=== PATIENT | male | born 1975 | race Caucasian/White ===

== ENCOUNTER 2017-12-30 00:18 | Observation (INO) | payer MEDICAID, SELFPAY ==
[2017-12-30] VITALS (21 sets, daily range): BP systolic 102–166; BP diastolic 59–112; PULSE 61–116; RESP 16–20; TEMP 36.4–36.9; O2SAT 91–99; BMI 30.8; BMI 32.5
--- NOTE | 2017-12-30 | IR_ITS ---
CARDIAC CATHETERIZATION DATE OF CATHETERIZATION:12/30/2017 1:56 AM PROCEDURES: 1. Left heart catheterization 2. Selective coronary arteriography 3. Left ventriculography 4. INDICATION FOR TEST: 1. Acute myocardial infarction 2. Abnormal EKG 3. Informed consent was obtained prior to the procedure. COMPLICATIONS: None ESTIMATED BLOOD LOSS: Less than 10 ml. TECHNIQUE: One percent lidocaine was used to anesthetize the right groin. The right femoral artery was accessed via the Seldinger technique. A 4-Nigerian sheath was placed in the right femoral artery. The JL-4 and JR-4 catheter was also used to perform left heart catheterization and left ventriculography. At the end of the procedure the patient was transferred to the post-op holding area in stable condition for arterial sheath removal. ANGIOGRAPHIC RESULTS: 1. The left main artery was angiographically normal 2. The left anterior descending artery was angiographically normal 3. The circumflex artery was angiographically normal 4. The right coronary artery is angiographically normal 5. The VALLADARES ventriculogram reveals 60% 6. The left ventricular end-diastolic pressure 12 IMPRESSION: 1. Normal coronary arteries. 2. Normal left ventricular function 3. Normal left ventricular end-diastolic pressure 4. 5. PLAN: 1. We will look for noncardiac causes of chest pain. Coronary arteries normal. Normal left ventricular systolic function 2.
--- NOTE | 2017-12-30 00:34 | XR_ITS ---
XR chest portable HISTORY: ITS.REASON: chest pain ORDERING PHYSICIAN: Jameel Baez MD PATIENT AGE: 42 years COMPARISON: 03/21/2015 FINDINGS: The cardiomediastinal silhouette and pulmonary vascularity are within normal limits. The lungs are clear without infiltrates, suspicious nodules, or pleural effusions. No acute bony abnormalities. IMPRESSION: Negative chest, no acute finding
--- NOTE | 2017-12-30 00:41 | PC.NURSE ---
dr reveles spoke to dr quach, ekg sent. dr quach coming to do cath
--- NOTE | 2017-12-30 00:44 | PC.NURSE ---
Leonardo Rodriguez called decorating machine operator for cath team.
[2017-12-30 00:46] LABS: Basophils # 0.1 K/mm3 (0-0.2); Basophils % 0.7 % (0.1-2.0); Eosinophils # 0.1 K/mm3 (0.0-0.4); Eosinophils % 1.3 % (0.1-12.0); Hemoglobin 15.1 g/dL (14.1-18.0); Lymphocytes % 36.7 K/mm3 (10-50); Mean Corpuscular HGB Conc 34.3 g/dL (31.8-35.4); Mean Corpuscular Hemoglobin 31.9 pg (27.0-31.2); Mean Corpuscular Volume 92.9 fl (80-94); Monocytes # 0.3 K/mm3 (0.1-1.0); Neutrophils # 4.7 K/mm3 (1.8-7.8); Neutrophils % 57.3 % (37.0-80.0); Platelet Count 233 K/mm3 (142-424); Red Blood Count 4.73 M/mm3 (4.60-6.20); Red Cell Distribution Width 12.4 % (11.5-17.5); White Blood Count 8.1 K/mm3 (4.8-10.8)
--- NOTE | 2017-12-30 00:49 | PC.NURSE ---
Dr. Baez spoke with Dr. Joaquin at [phone] and [phone]
--- NOTE | 2017-12-30 00:51 | PC.NURSE ---
was informed to call cath team in ot 0049 , irma Borja,Zak Meza,and Graciela ROBERTS WERE NOTIFIED
--- NOTE | 2017-12-30 00:51 | HMH.EDCP ---
ED Disposition Clinical Impression: ST elevation myocardial infarction (STEMI) Qualifiers: Involved coronary artery: unspecified coronary artery Qualified Code(s): I21.3 - ST elevation (STEMI) myocardial infarction of unspecified site Disposition: Admitted As Inpatient Condition on Discharge: Serious - Critical Care Critical Care Time: Yes Attestation: On , the high probability of a clinically significant, sudden or life threatening deterioration of the following system(s) required my full and direct attention, intervention and personal management. The time I documented below is in addition to time spent performing reported procedures but includes the following listed in this critical care notation. Total Critical Care Time: 60 Vital system(s) involved:: Circulatory Failure My critical care processes included: Assessment & monitoring of V/S, Initial and Re-exams, Medication Orders and management Medical Decision Making - Medical Records Medical records reviewed: Yes: I reviewed the patient's medical records. Vital Signs: 12/30/17 00:20 Temperature 98.4 F Temperature Source Oral Pulse Rate [Apical] 116 H Respiratory Rate 20 Blood Pressure [Left Arm] 166/112 Blood Pressure Mean [Left Arm] 130 Blood Pressure Source [Left Arm] Automatic Cuff 02 Sat by Pulse Oximetry 99 Oxygen Delivery Method Room Air - Lab Data Lab results reviewed: Yes: I reviewed the patient's lab results. Orders (Tests/Meds): ED MEDICATIONS Discontinued Medications Generic Name Dose Route Start Last Admin Trade Name Freq PRN Reason Stop Dose Admin Aspirin 324 mg 12/30/17 00:40 12/30/17 00:44 Aspirin 81mg Chewable Tablet PO 12/30/17 00:41 324 mg ONCE ONE Administration ORDERS Category Date Time Status XR chest portable Stat Exams 12/30/17 00:34 Taken Cardiac Enzymes Stat Lab 12/30/17 00:25 Received Complete Blood Count Auto Diff Stat Lab 12/30/17 00:25 Received Comprehensive Metabolic Panel Stat Lab 12/30/17 00:25 Received ECG Request by /Harjeet Stat Y 12/30/17 00:34 Ordered - Radiology Data #1 Image(s): Chest Image Reviewed: Yes I reviewed the patient's radiology image Preliminary Findings: Abnormal (cm) - ECG Data Tracing #1 I reviewed this ECG and interpreted as documented below: Arrhythmias present: sinus tach Ischemic changes: ST elevation - Physician Consults Physician Consulted: tiffanie Reason -: Pt condition Additional Consult: maria isabel Reason -: Admission, Pt condition - Tye Inquiry Pt receiving controlled substance: No Chest Pain HPI - General Chief Complaint: Chest Pain Stated Complaint: Chest pain Time Seen by Provider: 12/30/17 00:25 Mode of Arrival: Ambulatory Source of Information: Patient, Relative, Medical Record Limitations: No Limitations Description of Symptoms (Recalled from ER Triage Doc. by RN): pt states around 2200 he began to have VIPUL shoulder pain with midline chest pain. Pt states he had some N/V. - History of Present Illness HPI narrative: acute onset of chest pain with nausea and scapular pain MD complaint: chest pain indicative of cardiac Onset (ago): hour(s) Duration: constant Activity at onset: light activity Pain location: substernal Severity: severe Quality: tightness Pain radiation: back Relieving factors: nothing Exacerbating factors: nothing Risk Factors for CAD: Family Hx of CAD Treatments prior to or on arrival for Cardiac Chest Pain: none - BRENNAN Score Non-Stemi Age of patient: Less than 65 yrs Number of risk factors for CAD: Presence of less than 3 Prior coronary artery stenosis(seen in coronary angiography): Less than 50% ST-Segment deviation on ECG (more than 1 min): Present Prior aspirin intake: No ASA in the last 7 days Severe anginal chest pain: No or one episode in last 24 hours Elevated cardiac markers(CK-MB or troponin): Present Non-Stemi Risk Score: 2 - Related Data Allergies Allergy/AdvReac Type Anitha
--- NOTE | 2017-12-30 00:55 | ED_ITS ---
ED Disposition Clinical Impression: ST elevation myocardial infarction (STEMI) Qualifiers: Involved coronary artery: unspecified coronary artery Qualified Code(s): I21.3 - ST elevation (STEMI) myocardial infarction of unspecified site Disposition: Admitted As Inpatient Condition on Discharge: Serious - Critical Care Critical Care Time: Yes Attestation: On , the high probability of a clinically significant, sudden or life threatening deterioration of the following system(s) required my full and direct attention, intervention and personal management. The time I documented below is in addition to time spent performing reported procedures but includes the following listed in this critical care notation. Total Critical Care Time: 60 Vital system(s) involved:: Circulatory Failure My critical care processes included: Assessment & monitoring of V/S, Initial and Re-exams, Medication Orders and management Medical Decision Making - Medical Records Medical records reviewed: Yes: I reviewed the patient's medical records. Vital Signs: 12/30/17 00:20 Temperature 98.4 F Temperature Source Oral Pulse Rate [Apical] 116 H Respiratory Rate 20 Blood Pressure [Left Arm] 166/112 Blood Pressure Mean [Left Arm] 130 Blood Pressure Source [Left Arm] Automatic Cuff 02 Sat by Pulse Oximetry 99 Oxygen Delivery Method Room Air - Lab Data Lab results reviewed: Yes: I reviewed the patient's lab results. Orders (Tests/Meds): ED MEDICATIONS Discontinued Medications Generic Name Dose Route Start Last Admin Trade Name Freq PRN Reason Stop Dose Admin Aspirin 324 mg 12/30/17 00:40 12/30/17 00:44 Aspirin 81mg Chewable Tablet PO 12/30/17 00:41 324 mg ONCE ONE Administration ORDERS Category Date Time Status XR chest portable Stat Exams 12/30/17 00:34 Taken Cardiac Enzymes Stat Lab 12/30/17 00:25 Received Complete Blood Count Auto Diff Stat Lab 12/30/17 00:25 Received Comprehensive Metabolic Panel Stat Lab 12/30/17 00:25 Received ECG Request by /Harjeet Stat Y 12/30/17 00:34 Ordered - Radiology Data #1 Image(s): Chest Image Reviewed: Yes I reviewed the patient's radiology image Preliminary Findings: Abnormal (cm) - ECG Data Tracing #1 I reviewed this ECG and interpreted as documented below: Arrhythmias present: sinus tach Ischemic changes: ST elevation - Physician Consults Physician Consulted: tiffanie Reason -: Pt condition Additional Consult: maria isabel Reason -: Admission, Pt condition - Tye Inquiry Pt receiving controlled substance: No Chest Pain HPI - General Chief Complaint: Chest Pain Stated Complaint: Chest pain Time Seen by Provider: 12/30/17 00:25 Mode of Arrival: Ambulatory Source of Information: Patient, Relative, Medical Record Limitations: No Limitations Description of Symptoms (Recalled from ER Triage Doc. by RN): pt states around 2200 he began to have VIPUL shoulder pain with midline chest pain. Pt states he had some N/V. - History of Present Illness HPI narrative: acute onset of chest pain with nausea and scapular pain MD complaint: chest pain indicative of cardiac Onset (ago): hour(s) Duration: constant Activity at onset: light activity Pain location: substernal Severity: severe Quality: tightness Pain rad
--- NOTE | 2017-12-30 01:19 | PC.NURSE ---
PT TO PHOTO CHECKER PER PAVAN.
--- NOTE | 2017-12-30 01:23 | PC.NURSE ---
dr reveles given ekg he advised stemi alert
[2017-12-30 01:24] LABS: Alanine Aminotransferase 42 U/L (12-78); Albumin Level 4.2 gm/dL (3.4-5.0); Albumin/Globulin Ratio 1.1 (1.1-1.8); Alkaline Phosphatase 97 U/L (46-116); Anion Gap 12.7 mEq/L (5-15); Aspartate Amino Transferase 28 U/L (15-37); Bilirubin,Total 0.6 mg/dL (0.2-1.0); Blood Urea Nitrogen 16 mg/dL (7-18); CKMB Relative Index 0.4 U/L (0-4.0); Calcium 8.9 mg/dL (8.5-10.1); Carbon Dioxide 26 mmol/L (21.0-32.0); Chloride 102 mmol/L (98-107); Creatine Kinase 148 U/L (39-308); Creatine Kinase MB 0.6 mg/ml (0.0-3.6); Creatinine Clearance Estimated 135 mL/min (0-300); Creatinine,Serum 0.98 mg/dL (0.70-1.30); Estimated Glomerular Filt Rate 84 ml/min (>60); GFR (African American) 101 ML/MIN (>60); Globulin 3.8 gm/dl (1.3-3.2); Glucose 107 mg/dL (74-106); Potassium 3.7 mmoL/L (3.5-5.1); Sodium 137 mmol/L (136-145); Troponin I < 0.02 ng/ml (0.00-0.06)
[2017-12-30 02:10] LABS: CATHL Activated Clotting Time 295 SEC (74-125)
[2017-12-30 04:43] LABS: Cholesterol 187 mg/dL (140-200); HDL Cholesterol 63 mg/dL (27-67); LDL Cholesterol 103 mg/dL (0-130); Triglycerides 104 mg/dL (30-200); VLDL Cholesterol 21 mg/dL (0-40)
[2017-12-30 05:56] LABS: Anion Gap 13.9 mEq/L (5-15); Blood Urea Nitrogen 15 mg/dL (7-18); Carbon Dioxide 24 mmol/L (21.0-32.0); Chloride 105 mmol/L (98-107); Creatinine Clearance Estimated 160 mL/min (0-300); Creatinine,Serum 0.85 mg/dL (0.70-1.30); Estimated Glomerular Filt Rate 99 ml/min (>60); GFR (African American) 120 ML/MIN (>60); Glucose 107 mg/dL (74-106); Potassium 3.9 mmoL/L (3.5-5.1); Sodium 139 mmol/L (136-145)
--- NOTE | 2017-12-30 06:35 | PC.NURSE ---
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 ONCE I STARTED HAVING THE PAIN, I WAS AFRAID IT WAS MY HEART. I AM KNOWN TO HAVE ANXIETY ATTACKS AND I DID FEEL PANICKY AT THAT TIME, THEN I BROKE OUT IN A COLD SWEAT AND THREW UP. I DIDN'T TELL THEM THIS DOWN STAIRS IN THE ER. NSR NOTED PER RETAIL BUSINESS DEVELOPMENT MANAGER. R GROIN SITE ASSESSED, CDI, WITH NO S/S OF INFECTION, NO HEMATOMA NOTED AT SITE. AROUND 0600 PT REQUESTED TO GET OOB TO USE THE RESTROOM, PT AMBULATED TO BATHROOM WELL WITH SBA AND HAD 750ML UO. NO COMPLAINTS STATED. VSS. WILL CONTINUE TO MONITOR.
--- NOTE | 2017-12-30 07:16 | PC.NURSE ---
REPORT GIVEN TO Isrrael SINHA W/C
--- NOTE | 2017-12-30 07:28 | HMH.HPDC ---
General - General Admission date: 12/30/17 Discharge date: 12/30/17 *Admission Date: 12/30/17 *History of present illness: 42-year-old male presented to the emergency department after working on a tractor in the evening rather violently when he developed pain across his back between the shoulder blades that radiated around to the chest. The longer his discomfort lasted the more anxious he became about the possibility of cardiac cause. Patient has undergone prior cardiac evaluation with a negative stress test. Patient presented to the emergency department. In the emergency department he underwent evaluation and there was high level of suspicion of myocardial infarction. The cardiac cath team was activated and patient was taken to the Disability Counselor [facility] History I have reviewed the patient's past medical history: Yes - *Social History Educational Level: Completed High School Smoking Status: Never smoker Alcohol Intake: never Occupational Status: employed Housing: house Household Members: spouse - Psychiatric History Expresses thoughts of harming self/others: None Suicide Plan Description: No Plan Review of Systems - Review of Systems Review of systems:: pertinent systems reviewed and negative unless documented below - *Neurologic Denies seizure-like activity Exam Vital signs and Labs for Last 24 Hours: Temp Pulse Resp BP Pulse Ox 98.0 F 86 16 102/59 91 L 12/30/17 04:05 12/30/17 04:05 12/30/17 04:05 12/30/17 04:05 12/30/17 04:05 Laboratory Results - last 24 hr 12/30/17 05:35: Sodium 139, Potassium 3.9, Chloride 105, Carbon Dioxide 24, Anion Gap 13.9, BUN 15, Creatinine 0.85, Estimated Creat Clear 160, Estimated GFR 99, Est GFR ( Amer) 120, Glucose 107 H Laboratory Results - last 24 hr 12/30/17 00:25: WBC 8.1, RBC 4.73, Hgb 15.1, Hct 44.0, MCV 92.9, MCH 31.9 H, MCHC 34.3, RDW 12.4, Plt Count 233, MPV 8.0, Neut % (Auto) 57.3, Lymph % (Auto) 36.7, [place] % (Auto) 4.0, Eos % (Auto) 1.3, Baso % (Auto) 0.7, Neut # (Auto) 4.7, Lymph # (Auto) 3.0, [place] # (Auto) 0.3, Eos # (Auto) 0.1, Baso # (Auto) 0.1 12/30/17 00:25: Sodium 137, Potassium 3.7, Chloride 102, Carbon Dioxide 26, Anion Gap 12.7, BUN 16, Creatinine 0.98, Estimated Creat Clear 135, Estimated GFR 84, Est GFR ( Amer) 101, Glucose 107 H, Calcium 8.9, Total Bilirubin 0.6, AST 28, ALT 42, Alkaline Phosphatase 97, Total Creatine Kinase 148, CK-MB (CK-2) 0.6, CK-MB (CK-2) Rel Index 0.4, Troponin I < 0.02, Total Protein 8.0, Albumin 4.2, Globulin 3.8 H, Albumin/Globulin Ratio 1.1 12/30/17 00:25: Triglycerides 104, Cholesterol 187, LDL Cholesterol 103, VLDL Cholesterol 21, HDL Cholesterol 63, Cholesterol/HDL Ratio 3.0 12/30/17 01:32: Activated Clotting Time 295 H* 12/30/17 05:35: Sodium 139, Potassium 3.9, Chloride 105, Carbon Dioxide 24, Anion Gap 13.9, BUN 15, Creatinine 0.85, Estimated Creat Clear 160, Estimated GFR 99, Est GFR ( Amer) 120, Glucose 107 H I & O for Last 24 hours: Intake & Output 12/27/17 12/28/17 12/29/17 12/30/17 11:59 11:59 11:59 11:59 Output Total 750 / 750 Balance -750 / -750 Weight 220 lb 5 oz Narrative: Patient is awake and alert comfortable. HEENT exam reveals reactive pupils, moist oropharynx, normal external ears. Neck is without carotid bruits or lymphadenopathy. Lungs are clear to auscultation. Heart has a regular rate and rhythm. Abdomen is soft and nontender. Musculoskeletal exam is significant for active range of motion in all extremities and mild tenderness to palpation of musculature in between the shoulder blades as well as reproducible pain with deep breathing. Hospital Course Hospital Course: Patient was taken to the Disability Counselor emergently and underwent cardiac catheterization by Dr. Holm. Catheterization was unremarkable. Patient did not have any obstructive coronary disease nor evidence of active infarction. Patient was kept in the hospital post procedurally for observation. O
--- NOTE | 2017-12-30 07:32 | P.HPDS_ITS ---
General - General Admission date: 12/30/17 Discharge date: 12/30/17 *Admission Date: 12/30/17 *History of present illness: 42-year-old male presented to the emergency department after working on a tractor in the evening rather violently when he developed pain across his back between the shoulder blades that radiated around to the chest. The longer his discomfort lasted the more anxious he became about the possibility of cardiac cause. Patient has undergone prior cardiac evaluation with a negative stress test. Patient presented to the emergency department. In the emergency department he underwent evaluation and there was high level of suspicion of myocardial infarction. The cardiac cath team was activated and patient was taken to the Security Nurse [facility] History I have reviewed the patient's past medical history: Yes - *Social History Educational Level: Completed High School Smoking Status: Never smoker Alcohol Intake: never Occupational Status: employed Housing: house Household Members: spouse - Psychiatric History Expresses thoughts of harming self/others: None Suicide Plan Description: No Plan Review of Systems - Review of Systems Review of systems:: pertinent systems reviewed and negative unless documented below - *Neurologic Denies seizure-like activity Exam Vital signs and Labs for Last 24 Hours: Temp Pulse Resp BP Pulse Ox 98.0 F 86 16 102/59 91 L 12/30/17 04:05 12/30/17 04:05 12/30/17 04:05 12/30/17 04:05 12/30/17 04:05 Laboratory Results - last 24 hr 12/30/17 05:35: Sodium 139, Potassium 3.9, Chloride 105, Carbon Dioxide 24, Anion Gap 13.9, BUN 15, Creatinine 0.85, Estimated Creat Clear 160, Estimated GFR 99, Est GFR ( Amer) 120, Glucose 107 H Laboratory Results - last 24 hr 12/30/17 00:25: WBC 8.1, RBC 4.73, Hgb 15.1, Hct 44.0, MCV 92.9, MCH 31.9 H, MCHC 34.3, RDW 12.4, Plt Count 233, MPV 8.0, Neut % (Auto) 57.3, Lymph % (Auto) 36.7, [place] % (Auto) 4.0, Eos % (Auto) 1.3, Baso % (Auto) 0.7, Neut # (Auto) 4.7 , Lymph # (Auto) 3.0, [place] # (Auto) 0.3, Eos # (Auto) 0.1, Baso # (Auto) 0.1 12/30/17 00:25: Sodium 137, Potassium 3.7, Chloride 102, Carbon Dioxide 26, Anion Gap 12.7, BUN 16, Creatinine 0.98, Estimated Creat Clear 135, Estimated GFR 84, Est GFR ( Amer) 101, Glucose 107 H, Calcium 8.9, Total Bilirubin 0.6, AST 28, ALT 42, Alkaline Phosphatase 97, Total Creatine Kinase 148, CK-MB ( CK-2) 0.6, CK-MB (CK-2) Rel Index 0.4, Troponin I < 0.02, Total Protein 8.0, Albumin 4.2, Globulin 3.8 H, Albumin/Globulin Ratio 1.1 12/30/17 00:25: Triglycerides 104, Cholesterol 187, LDL Cholesterol 103, VLDL Cholesterol 21, HDL Cholesterol 63, Cholesterol/HDL Ratio 3.0 12/30/17 01:32: Activated Clotting Time 295 H* 12/30/17 05:35: Sodium 139, Potassium 3.9, Chloride 105, Carbon Dioxide 24, Anion Gap 13.9, BUN 15, Creatinine 0.85, Estimated Creat Clear 160, Estimated GFR 99, Est GFR ( Amer) 120, Glucose 107 H I & O for Last 24 hours: Intake & Output 12/27/17 12/28/17 12/29/17 12/30/17 11:59 11:59 11:59 11:59 Output Total 750 / 750 Balance -750 / -750 Weight 220 lb 5 oz Narrative: Patient is awake and alert comfortable. HEENT exam reveals reactive pupils, moist oropharynx, normal external ears. Neck is without carotid bruits or lymphadenopathy. Lungs are clear to auscultation. Heart has a regular rate and rhythm. Abdomen is soft and nontender. Musculoskeletal exam is significant for active range of motion in all extremities and mild tenderness
== END 2017-12-30 08:40 | disposition home or self-care (01) ==
LOC: ER 01:06 → CATHLAB 01:32 → 2ND 02:32
PROVIDERS: Internal Medicine; Internal Medicine Cardiovascular Disease; Admitting Provider Family Medicine; Emergency Provider Emergency Medicine; Family Provider Nurse Practitioner; PCP Family Medicine; Visit Provider Family Medicine
DX: R07.9 Chest pain, unspecified (principal); R94.31 Abnormal electrocardiogram [ECG] [EKG]
CPT/HCPCS: 36415; 71045; 80048; 80053; 80061; 82550; 82553; 84484; 85025; 85347; 93005; 93041; 93458; 96374; 99152; 99282; C1725; C1760; C1769; C1894; G0378; J1644; Q9967

== ENCOUNTER 2021-05-30 09:51 | Emergency (ER) | payer OTHER, SELFPAY ==
[2021-05-30 10:43] VITALS: BP 146/75; PULSE 70; RESP 16; TEMP 36.8; O2SAT 97; BMI 34.0
--- NOTE | 2021-05-30 10:46 | XR_ITS ---
PROCEDURE INFORMATION: Exam: XR Right Forearm Exam date and time: 05/30/2021 10:46 AM Age: 45 years old Clinical indication: Pain; Lower or forearm; Right; Additional info: Old injury. Steel imbedded in rfa TECHNIQUE: Imaging protocol: XR Right forearm. Views: 2 views. COMPARISON: No relevant prior studies available. FINDINGS: Bones/joints: There is no evidence of acute fracture.There is no evidence of malalignment or dislocation. Soft tissues: Metallic foreign body in the soft tissues in the mid forearm.. IMPRESSION: 1. Metallic foreign body in the soft tissues in the mid forearm.. 2. There is no evidence of acute fracture.There is no evidence of malalignment or dislocation.
--- NOTE | 2021-05-30 10:55 | HMH.EDUTC ---
[facility] – [place], [place] Disposition Clinical Impression: Right arm cellulitis Foreign body in right forearm Qualifiers: Encounter type: initial encounter Qualified Code(s): S50.851A - Superficial foreign body of right forearm, initial encounter Disposition: Home, Self-Care Condition on Discharge: Good Instructions: Cellulitis Additional Instructions: Keep the affected area clean and dry. Follow up with your regular doctor. Take the antibiotics as directed and apply the topical antibiotics as directed. Apply warm wet compresses to the affected area three or four times per day. Follow up with orthopedics (Dr. Culp) to discuss your arm pain and the possible removal of the foreign body. I put in a referral but you will need to call his office. GO TO THE ER FOR ANY WORSENING SYMPTOMS Prescriptions: Sulfamethoxazole/Trimethoprim [Bactrim DS tablet] 1 each PO BID 10 Days #20 tab Transmission Status: Received by [facility] #[id number] cephALEXin [cephALEXin 500mg capsule] 500 mg PO Q6H 10 Days #40 cap Transmission Status: Received by [facility] #[id number] Referrals: Michael Chiu MD [Primary Care Provider] - Chet Culp MD [Staff Physician] - Forms: Work/School Release Time of Disposition: 11:19 Medical Decision Making - Medical Records Medical records reviewed: No: I reviewed the patient's medical records. - Tye Inquiry Pt receiving controlled substance: No Vital Signs: 05/30/21 10:43 05/30/21 12:49 Temperature 98.2 F 98 F Temperature Source Oral Pulse Rate 65 Pulse Rate [Left] 70 Respiratory Rate 16 18 Blood Pressure 142/79 H Blood Pressure [Right Arm] 146/75 H Blood Pressure Mean [Right Arm] 98 02 Sat by Pulse Oximetry 97 - Radiology Data #1 Image(s): Forearm Image Reviewed: Yes I reviewed the patient's radiology image, Yes I have reviewed radiologist's interpretation PROCEDURE INFORMATION: Exam: XR Right Forearm Exam date and time: 05/30/2021 10:46 AM Age: 45 years old Clinical indication: Pain; Lower or forearm; Right; Additional info: Old injury. Steel imbedded in rfa TECHNIQUE: Imaging protocol: XR Right forearm. Views: 2 views. COMPARISON: No relevant prior studies available. FINDINGS: Bones/joints: There is no evidence of acute fracture.There is no evidence of malalignment or dislocation. Soft tissues: Metallic foreign body in the soft tissues in the mid forearm.. [facility] – [place], [place] HPI - General Stated complaint: rt arm pain, lack of mobility Time Seen by Provider: 05/30/21 10:57 Mode of Arrival: Ambulatory Source of Information: Patient Limitations: No Limitations Description of Symptoms (Recalled from Triage Doc. by RN): pt states he has had a piece of steel in his arm for 22 years. his RFA is now swollen, red, warm and very painful. before this it never bothered him. HEENT Symptoms (Recalled from RN notes): No Resp Symptoms (Recalled from RN notes): No Skin Symptoms (Recalled from RN notes): No MS Symptoms (Recalled from RN notes): Yes (LFA pain with imbedded steel from years ago) Functional Status (Recalled from RN notes): na - History of Present Illness Provider Complaint: He got a piece of metal in his right forearm approx 22 years ago. He states that since then it has periodically got inflamed and bothered him. He states that for the past 3 days he has had redness and warmth at the site over the foreign body beneath his skin. He denies any recent injury. He denies any fever/chills. He denies that he is diabetic. - Related Data Home Medications Medication Instructions Recorded Confirmed Pantoprazole Sodium [Protonix 20mg 20 mg PO DAILY 12/30/17 07/28/18 Tab] Previous Rx's Medication Instructions Recorded Clarithromycin [Biaxin] 250 mg PO BID #20 tablet 07/28/18 Fluticasone Propionate [Flonase 2 spr NS DAILY #1 bottle 07/28/18 50mcg nasal spray 16gm] predniSONE [Prednisone 10mg Tab 10 mg PO UD DOSE PK #21 pack
[2021-05-30 12:49] VITALS: BP 142/79; PULSE 65; RESP 18; TEMP 36.6
== END 2021-05-30 12:49 | disposition home or self-care (01) ==
PROVIDERS: Emergency Provider Nurse Practitioner Family; PCP Family Medicine
DX: L03.113 Cellulitis of right upper limb (principal); M79.5 Residual foreign body in soft tissue; Z88.0 Allergy status to penicillin
CPT/HCPCS: 73090; 99202; G0463

== ENCOUNTER → 2021-06-01 11:52 | Outpatient (CLI) | payer OTHER, SELFPAY ==
--- NOTE | 2021-06-01 12:16 | ECG_ITS ---
APPROVED REPORT Exam: Resting ECG HR:67 bpm ECG Measurements Heart Rate 67 AXES PA 140 P 45 QRSd 84 QRS 53 QT 390 T 36 QTc 412 Conclusion Normal sinus rhythm Normal ECG Electronically signed by : Michael Enriquez MD 06/04/2021 11:41:12
[2021-06-01 12:33] LABS: Basophils # 0.2 K/mm3 (0-0.2); Basophils % 2.4 % (0.1-2.0); Eosinophils # 0.1 K/mm3 (0.0-0.4); Eosinophils % 0.8 % (0.1-12.0); Hematocrit 45.3 % (42.0-52.0); Hemoglobin 14.8 g/dL (14.1-18.0); Lymphocytes # 2.8 K/mm3 (0.7-4.5); Lymphocytes % 34.5 % (10-50); Mean Corpuscular HGB Conc 32.6 g/dL (31.8-35.4); Mean Corpuscular Hemoglobin 32.5 pg (27.0-31.2); Mean Corpuscular Volume 99.7 fl (80-94); Mean Platelet Volume 13.6 fl (7.4-10.4); Monocytes # 0.2 K/mm3 (0.1-1.0); Monocytes % 2.7 % (1.7-9.3); Neutrophils # 4.9 K/mm3 (1.8-7.8); Neutrophils % 59.7 % (37.0-80.0); Platelet Count 222 K/mm3 (142-424); Red Blood Count 4.54 M/mm3 (4.60-6.20); Red Cell Distribution Width 16.6 % (11.5-17.5); White Blood Count 8.3 K/mm3 (4.8-10.8)
[2021-06-01 13:24] LABS: Chloride 106 mmol/L (98-107); Potassium 4.7 mmoL/L (3.5-5.1); Sodium 139 mmol/L (136-145)
[2021-06-01 13:26] LABS: Alanine Aminotransferase 69 U/L (12-78); Aspartate Amino Transferase 77 U/L (17-59); Blood Urea Nitrogen 14 mg/dl (9-20); Estimated Glomerular Filt Rate 81 ml/min (>60); GFR (African American) 98 ML/MIN (>60)
[2021-06-01 13:27] LABS: Albumin Level 4.5 g/dl (3.5-5.0); Albumin/Globulin Ratio 1.4 (1.1-1.8); Alkaline Phosphatase 140 U/L (38-126); Anion Gap 17.7 mEq/L (5-15); Bilirubin,Total 0.9 mg/dl (0.2-1.3); Calcium 9.5 mg/dl (8.4-10.2); Carbon Dioxide 20 mmol/L (22.0-30.0); Globulin 3.3 g/dL (1.3-3.2); Glucose 92 mg/dl (74-100); Total Protein,Serum 7.8 g/dl (6.3-8.2)
== END ==
PROVIDERS: Visit Provider Orthopaedic Surgery
DX: Z01.818 Encounter for other preprocedural examination (principal); Z11.52 Encounter for screening for COVID-19; S50.851A Superficial foreign body of right forearm, initial encounter; L03.113 Cellulitis of right upper limb
CPT/HCPCS: 36415; 80053; 85025; 93005; U0003

== ENCOUNTER 2021-06-03 09:32 | Day surgery (SDC) | payer OTHER, SELFPAY ==
[2021-06-01 13:07] VITALS: BMI 34.0
[2021-06-03] VITALS (8 sets, daily range): BP systolic 126–157; BP diastolic 71–99; PULSE 61–87; RESP 16–20; TEMP 36.1–36.6; O2SAT 91–100
--- NOTE | 2021-06-03 10:42 | P.PN_ITS ---
[facility] Anesthesia Checklist - Patient Identification Patient Identification: Arm Band - Structural Data Admitted From: Home Planned Operative Procedure/s: Foreign body removal Left arm Consent for Planned Operative Procedure(s) Verified: Yes - NPO Status Verified Time NPO: 00:00 - Additional verifications Anesthesia Reactions: No Hx Blood Transfusions: No Blood Transfusion Reaction: No - Airway Assessment C-Spine Mobility Assessed: Yes TMJ Mobility Assessed: Yes Dentition: Good Dentition - Neurological Assessment Level of Consciousness: Awake Hx Seizures: No Numbness or tingling in extremities: No - Anesthesia Plan Anesthesia Risk discussed: Yes Anesthesia Plan: Verified ASA Class: II Anesthesia Type: General [facility] History I have reviewed the patient's past medical history: Yes Medical History: Reports:: Anxiety, Gastroesophageal Reflux Disease(GERD) Denies:: Cancer, Diabetes Mellitus Type 1, Diabetes Mellitus Type 2, Internal Pacemaker, MRSA, Seizures *Have you ever received a pneumonia vaccine?: No *Have you received a flu vaccine this season?: No Other Medical History: Denies: Blood Transfusion Reaction Anesthesia experience/problems:: None Other Surgeries: Yes: No Previous Surgery. No: Pacemaker Amputation: No Fractures: No - *Social History Last grade of school completed: High school graduate Smoking Status: Never smoker Tobacco Type: smokeless tobacco Alcohol Intake: never Substance Use Type: denies use *Occupational Status:: employed Housing: house Household Members: spouse *Travel in the last 8 weeks: None - Psychiatric History Pschychiatric History:: Reports:: Anxiety Family Hx:: Unable to obtain
--- NOTE | 2021-06-03 13:08 | XR_ITS ---
PROCEDURE: XR FOREARM RT 2V CLINICAL INDICATION: FB REMOVAL IN OR COMPARISON: CR XR FOREARM RT 2V from 05/30/2021 FINDINGS: Fluoroscopy time: 4 seconds C-arm utilized for foreign body removal. Post removal images show no evidence of residual foreign body. Other findings:None. IMPRESSION: Interval forearm foreign body with C-arm assistance Dictated by: Hemal Arroyo MD 06/03/2021 13:36 Hemal Arroyo MD in OV 06/03/2021 13:36
--- NOTE | 2021-06-03 13:25 | HMH.ANESI ---
[facility] Anesthesia Record Part I Intake, IV Amount: 1,000 Estimated blood loss (mL): 5 Urine output (mL): 0 Blood Pressure: 148/93 SaO2: 92 Pulse Rate: 78 Respiratory Rate: 16 Temperature: 97.6 F Patient is:: Drowsy, Stable Stable to PACU at:: 13:25
--- NOTE | 2021-06-03 20:49 | HMH.OPNOTE ---
Date of procedure: 06/03/21 Pre-op Diagnosis:: 1. Infected foreign body, right forearm 2. Cellulitis, right forearm Post-op Diagnosis:: 1. Infected foreign body, right forearm 2. Abscess, right forearm Procedure performed:: 1. Incision and drainage abscess, right forearm 2. Exploration and removal of foreign body, right forearm Surgeon:: Chet Culp MD Router Setter(s):: Roma Gaston SECURITIES SUPERVISOR:: Ronak Wang Anesthesia: LMA Estimated blood loss (mL): 5 Clinical Note:: Patient is a 45 year old right hand dominant male with history of a metallic foreign body over the dorsal aspect of the right forearm after an injury sustained about twenty-two years ago. He did not have any problems with this until recently tissue. He says he could feel it under the skin but it has never caused any problems until recently. He developed pain, redness and swelling over the dorsal aspect of the forearm couple of weeks ago and it has gradually gotten worse. Evaluation in the ER and subsequently in the office confirmed an infected foreign body with surrounding cellulitis and possibly a small abscess over the dorsum of the forearm. Patient was started on oral antibiotics in the ER and he reports some improvement in the pain and swelling. There is no history of any systemic symptoms. There is no history of any distal tingling or numbness. 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 He has a history of anxiety and GERD. He also has a remote history of a STEMI. He is not a known diabetic. Examination confirmed diffuse swelling with cellulitis and possibly small abscess around the site of the foreign body over the dorsum of the forearm. No lymphangitis or lymphadenopathy noted. He has full range of elbow, forearm, wrist and finger movements. Distal circulation is intact with 2+ radial pulse and brisk capillary refill. Sensation is intact to light touch throughout. X-rays of the forearm confirmed a metallic foreign body in the soft tissues over the dorsum of the forearm. Please refer to my office note for full details. Operative findings:: A small rusted metallic foreign body measuring less than half a centimeter noted deep in the extensor muscles of the forearm just under the deep fascia. There is a small opening in the deep fascia and a small amount of pus formation around the foreign body. Also noted was a foreign body granuloma extending into the extensor muscles of the forearm. There was a fair sized cavity under the subcutaneous tissue. However, only a couple of cc of pus was noted. No vascular or nerve injury noted. Operative note:: Prior to surgery, I met the patient in the preoperative area and again discussed about management options including both nonsurgical and surgical. Patient is keen to proceed with surgical remediation to remove the foreign body. I have again discussed the details of the procedure, risks and benefits, alternatives and the expected outcomes. I have discussed how there is a small but real possibility of not being able to find/remove the foreign body. I have also explained how additional surgery may be required if there are any complications. We have also discussed the option of nonsurgical treatment. Patient expressed a full understanding and wished to proceed with surgery. A physical examination was performed and findings documented. The operative site was marked and initialed by me. Patient understood the risks, agreed to proceed with surgery, signed the consent form and no guarantees or assurances were given or implied. The patient was brought to the operating room and placed supine on the table. The right upper extremity was placed over an arm table. All the bony prominences were appropriately padded. A general anesthesia was administered by the artist's model. A well-padded tourniquet cuff was placed over the upper arm. The right upper extremity was prepped and draped in the usual sterile fashion. A preprocedure timeout was performed as per
--- NOTE | 2021-06-04 14:27 | P.PN_ITS ---
[facility] Anesthesia Record Part II Discharge Time: 13:55 Destination: Surgical Day Care (OP Surgery) PACU nurse assessment reviewed?: Yes Patient Condition:: Good Anesthesia Complications:: None Swallowing reflex intact?: Yes Cyanosis?: No Blood Pressure: 141/71 Pulse Rate: 66 Temperature: 97 F Mental Status: Alert & Oriented Pain level:: 8 Nausea and/or vomitting:: None Intake, IV Amount: 0
[2021-06-04 14:28] VITALS: BP 141/71; PULSE 66; TEMP 36.1
== END 2021-06-03 14:40 | disposition home or self-care (01) ==
LOC: OR 09:35
PROVIDERS: PCP Family Medicine; Visit Provider Orthopaedic Surgery
PROC: (CPT 10120; principal; 2021-06-03 11:00)
DX: M79.5 Residual foreign body in soft tissue (principal); W45.8XXA Other foreign body or object entering through skin, initial encounter; L02.413 Cutaneous abscess of right upper limb
CPT/HCPCS: 10120; 10060; 73090; 76000; 87070; 87075; 87205; 96374; J2405

== ENCOUNTER 2021-06-17 09:00 | Outpatient (RCR) | payer OTHER, SELFPAY ==
--- NOTE | 2021-06-09 17:53 | HMH.PTOPWND ---
Rehab Outpt Wound Evaluation Rehab OP Wound Evaluation Start: 06/09/21 17:10 Freq: Status: Active Protocol: Document 06/09/21 17:41 PWEMILY (Rec: 06/09/21 17:53 [email or web address] [id number]) Electronically Signed By Yakov Macedo, PT 06/09/21 17:41 Subjective/History History History This is the initial Physical Therapy wound evaluation for Jm Ramirez. Pt is a 45 y/o male referred to wound care s /p surgical removal and debridement of foreign body. Pt reprots original foreign body was a metal shaving from metal working in R forearm. Pt states it became infected and caused R forearm to swell and turn red. Subjective Subjective no c/o pain Wound Eval Wound Right Forearm Wound Type Incision Wound Length (cm) 2.0 Wound Width (cm) 1.0 Wound Depth (cm) 0.8 Wound Bed Appearance Beefy Red Percentage Granulated (%) 100 Wound Margins Description Well Defined Undermining Position 12-12 Undermining Length (cm) 2.0 Undermining Width (cm) 0.3 Surrounding Tissue Appearance [place] Drainage Description None Packing Type Impregnated Gauze Pads Comment tegederm ag mesh Primary Dressing Drainage Sponge Dressing Change Patient Tolerance Tolerated Well Wound Problems/Impairments Impairments Problems/Impairmments Impaired Shower/Bathing, Impaired Recreational Activities,Impaired Work Activities,Wound Care Needs, Impaired Self Care/Self Management Prognosis Rehab Potential Good Clinical Impression Consistent with Diagnosis Yes Short Term Goals Number of Weeks 4 Decrease Wound Area Yes: 50% Group Home Goals Number of Weeks 8 Decrease Wound Area Yes: 75% Patient to be Ind w/ Home Wound Care/ Yes Dressing Changes Outpatient Therapy Plan of Care Treatment Plan May Include Wound Care Yes Frequency Times per week 2 Duration Number of Weeks 8 Addendums This patient is a candidate for social No or vocational rehab? Patient/Guardian verbally acknowledges Yes understanding of treatment program and consents to further treatment?
== END 2021-06-17 09:05 | disposition home or self-care (01) ==
LOC: PT 09:00
PROVIDERS: PCP Family Medicine; Visit Provider Orthopaedic Surgery
DX: S50.851A Superficial foreign body of right forearm, initial encounter (principal); L03.113 Cellulitis of right upper limb
CPT/HCPCS: 97161; 97597

== ENCOUNTER 2021-09-24 17:06 | Inpatient (IN) | payer OTHER, SELFPAY ==
[2021-09-24] VITALS (13 sets, daily range): BP systolic 126–145; BP diastolic 67–82; PULSE 68–100; RESP 20–22; TEMP 36.3–38.1; O2SAT 82–94; BMI 34.0; BMI 32.5
--- NOTE | 2021-09-24 17:43 | HMH.EDGENADL ---
ED Disposition Clinical Impression: Pneumonia due to COVID-19 virus Respiratory failure with hypoxia Qualifiers: Chronicity: acute Qualified Code(s): J96.01 - Acute respiratory failure with hypoxia Disposition: Admitted As Inpatient Condition on Discharge: Serious Referrals: Michael Chiu MD [Primary Care Provider] - - Critical Care Critical Care Time: No Attestation: On 09/24/21, the high probability of a clinically significant, sudden or life threatening deterioration of the following system(s) required my full and direct attention, intervention and personal management. The time I documented below is in addition to time spent performing reported procedures but includes the following listed in this critical care notation. Medical Decision Making - Tye Inquiry Pt receiving controlled substance: No Vital Signs: 09/24/21 17:09 09/24/21 17:20 09/24/21 17:45 Temperature 100.6 F H Temperature Source Oral Pulse Rate 92 H Pulse Rate [Right Radial] 100 H Respiratory Rate 22 Blood Pressure 133/82 Blood Pressure [Right Arm] 136/77 Blood Pressure Mean Blood Pressure Mean [Right Arm] 96 Blood Pressure Source [Right Arm] Automatic Cuff Blood Pressure Position [Right Arm] Sitting 02 Sat by Pulse Oximetry 82 L 91 L 92 L Oxygen Delivery Method Room Air Nasal Cannula Nasal Cannula Oxygen Flow Rate (LPM) 6 6 09/24/21 18:00 09/24/21 19:01 09/24/21 19:31 Temperature Temperature Source Pulse Rate 86 89 89 Pulse Rate [Right Radial] Respiratory Rate Blood Pressure 130/74 144/73 H 133/76 Blood Pressure [Right Arm] Blood Pressure Mean 84 87 Blood Pressure Mean [Right Arm] Blood Pressure Source [Right Arm] Blood Pressure Position [Right Arm] 02 Sat by Pulse Oximetry 93 L 90 L 91 L Oxygen Delivery Method Nasal Cannula Oxygen Flow Rate (LPM) 6 6 6 - Lab Data Lab Results 09/24/21 17:35: WBC 10.0, RBC 4.10 L, Hgb 13.6 L, Hct 39.0 L, MCV 95.0 H, MCH 33.1 H, MCHC 34.8, RDW 13.6, Plt Count 212, MPV 8.2, Neut % (Auto) 95.9 H, Lymph % (Auto) 3.3 L, [place] % (Auto) 0.6 L, Eos % (Auto) 0.0 L, Baso % (Auto) 0.2, Neut # (Auto) 9.6 H, Lymph # (Auto) 0.3 L, [place] # (Auto) 0.1, Eos # (Auto) 0.0, Baso # (Auto) 0.0, Total Counted 100, Neutrophils % (Manual) 95 H, Band Neutrophils % 1.0, Lymphocytes % (Manual) 3 L, Monocytes % (Manual) 1 L, Platelet Estimate Normal 09/24/21 17:35: Sodium 131 L, Potassium 4.3, Chloride 96 L, Carbon Dioxide 28, Anion Gap 11.3, BUN 20, Creatinine 0.80, Estimated Creat Clear 170, Estimated GFR 104, Est GFR ( Amer) 126, Glucose 146 H, Calcium 8.7, Total Bilirubin 1.5 H, AST 74 H, ALT 62, Alkaline Phosphatase 127 H, Total Protein 7.3, Albumin 3.9, Globulin 3.4 H, Albumin/Globulin Ratio 1.1 09/24/21 17:35: Lactate 1.4 09/24/21 17:35: C-Reactive Protein 244.5 H 09/24/21 19:07: SARS-CoV-2 (PCR) Detected A, Influenza A Untype (PCR) Not detected, Influenza Type B (PCR) Not detected Result diagrams: 09/24/21 17:35 09/24/21 17:35 Orders (Tests/Meds): ED MEDICATIONS Discontinued Medications Generic Name Dose Route Start Last Admin Trade Name Raza PRN Reason Stop Dose Admin Ibuprofen 600 mg 09/24/21 18:55 09/24/21 18:55 Ibuprofen 600 Mg Tablet PO 09/24/21 18:56 600 mg ONCE ONE Administration Iopamidol 70 ml 09/24/21 18:48 09/24/21 18:50 Iopamidol-370 (76%);100ml Bottle IV 09/24/21 18:49 70 ml ONCE ONE Administration Sodium Chloride 50 ml 09/24/21 18:48 09/24/21 18:50 0.9 % Sodium Chloride 50 Ml Vial IV 09/24/21 18:49 50 ml ONCE ONE Administration Sodium Chloride 10 ml 09/24/21 18:48 09/24/21 18:50 Sodium Chloride 0.9% 10ml Syr (Rad Only) IV 09/24/21 18:49 10 ml ONCE ONE Administration ORDERS Category Date Time Status Blood Culture Stat Micro 09/24/21 17:48 Received - Radiology Data #1 Image(s): Chest Image Reviewed: Yes I reviewed the patient's radiology image PROCEDURE INFOR
--- NOTE | 2021-09-24 17:45 | PC.NURSE ---
notified ER MD of pt SaO2 pt on 6L NC SaO2 90-92% ER MD states notify RT to place pt on vapotherm
--- NOTE | 2021-09-24 17:46 | XR_ITS ---
PROCEDURE INFORMATION: Exam: XR Chest Exam date and time: 09/24/2021 5:46 PM Age: 46 years old Clinical indication: Shortness of breath and other: Covid; Additional info: Covid +, SOA, low sao2 TECHNIQUE: Imaging protocol: XR of the chest. Views: 1 view. Upright portable AP exam 6:08 p.m. COMPARISON: CR [id number] XR chest portable 12/30/2017 12:27 AM FINDINGS: Lungs: Hypoventilation/low lung volumes. New bilateral central perihilar and lower pulmonary airspace disease compared with the prior exam from 12/30/2017, which could be pneumonia or edema. No focal consolidation. Pleural spaces: Unremarkable. No significant pleural effusion. No pneumothorax. Heart/Mediastinum: The cardiac silhouette is normal. Bones/joints: There is no evidence of acute fracture. IMPRESSION: Hazy bilateral perihilar and lower pulmonary airspace disease, correlate for edema or pneumonia.
--- NOTE | 2021-09-24 17:47 | PC.NURSE ---
MARIA INES KNOX at
[2021-09-24 17:56] LABS: Basophils % 0.2 % (0.1-2.0); Hemoglobin 13.6 g/dL (14.1-18.0); Lymphocytes # 0.3 K/mm3 (0.7-4.5); Lymphocytes % 3.3 % (10-50); Mean Corpuscular HGB Conc 34.8 g/dL (31.8-35.4); Mean Corpuscular Hemoglobin 33.1 pg (27.0-31.2); Mean Platelet Volume 8.2 fl (7.4-10.4); Monocytes # 0.1 K/mm3 (0.1-1.0); Monocytes % 0.6 % (1.7-9.3); Neutrophils # 9.6 K/mm3 (1.8-7.8); Neutrophils % 95.9 % (37.0-80.0); Platelet Count 212 K/mm3 (142-424); Red Cell Distribution Width 13.6 % (11.5-17.5)
[2021-09-24 17:59] LABS: MANUAL DIFFERENTIAL MANUAL DIFFERENTIAL (MANUAL DIFF)
--- NOTE | 2021-09-24 18:01 | PC.NURSE ---
ER states to wait on vapotherm, pt okay on 6L NC as long as SaO2 90% and above
--- NOTE | 2021-09-24 18:02 | PC.NURSE ---
rad at for portable cxr
[2021-09-24 18:04] LABS: Chloride 96 mmol/L (98-107); Potassium 4.3 mmoL/L (3.5-5.1); Sodium 131 mmol/L (136-145)
[2021-09-24 18:07] LABS: Alanine Aminotransferase 62 U/L (12-78); Albumin Level 3.9 g/dl (3.5-5.0); Albumin/Globulin Ratio 1.1 (1.1-1.8); Alkaline Phosphatase 127 U/L (38-126); Anion Gap 11.3 mEq/L (5-15); Aspartate Amino Transferase 74 U/L (17-59); Bilirubin,Total 1.5 mg/dl (0.2-1.3); Blood Urea Nitrogen 20 mg/dl (9-20); Calcium 8.7 mg/dl (8.4-10.2); Carbon Dioxide 28 mmol/L (22.0-30.0); Creatinine Clearance Estimated 170 mL/min (50-200); Estimated Glomerular Filt Rate 104 ml/min (>60); GFR (African American) 126 ML/MIN (>60); Globulin 3.4 g/dL (1.3-3.2); Glucose 146 mg/dl (74-100); Lactic Acid 1.4 mmol/L (0.7-2.1); Total Protein,Serum 7.3 g/dl (6.3-8.2)
--- NOTE | 2021-09-24 18:07 | CT_ITS ---
PROCEDURE INFORMATION: Exam: CTA Chest With Contrast Exam date and time: 09/24/2021 6:07 PM Age: 46 years old Clinical indication: Shortness of breath; Additional info: Covid 19, hypoxia TECHNIQUE: Imaging protocol: Computed tomographic angiography of the chest with contrast. 3D rendering (Not supervised by radiologist): MIP and/or 3D reconstructed images were created by the technologist. Radiation optimization: All CT scans at this facility use at least one of these dose optimization techniques: automated exposure control; mA and/or kV adjustment per patient size (includes targeted exams where dose is matched to clinical indication); or iterative reconstruction. Contrast material: ISOVUE 370; Contrast volume: 70 ml; Contrast route: INTRAVENOUS (IV); COMPARISON: CR XR CHEST PORTABLE 09/24/2021 6:05 PM FINDINGS: Pulmonary arteries: No acute pulmonary emboli. No central, lobar, or segmental emboli. Aorta: No thoracic aortic aneurysm. No evidence of dissection in the chest, though the aorta is suboptimally enhanced on this PE protocol exam. Lungs: Extensive ground-glass opacities scattered throughout both lungs. These involve the perihilar lung greater on the right and both posterior lower lobes with confluent ground-glass densities, but there are also multiple scattered peripheral ground-glass opacities in both lungs, including upper lobes, which is a finding commonly associated with COVID-19 pneumonia. Calcified anterior right upper lobe pulmonary granuloma. Pleural spaces: There is a very small low-density layering right pleural effusion. No pneumothorax. Heart: Cardiac size appears at the upper limits normal. RV/LV ratio approximate 0.7, within normal limits. There is no significant reflux of contrast into the IVC or hepatic veins to suggest right heart strain. Trace mediastinal fluid, no significant pericardial effusion. A few coronary artery calcifications. Lymph nodes: No significantly enlarged lymph nodes by short axis criteria. Calcified right hilar lymph nodes. Gallbladder and bile ducts: Cholecystectomy clips. No biliary dilatation as visualized. Kidneys and ureters: Large complex septated left renal cystic lesion, incompletely imaged, at least 10 cm diameter. Bones/joints: There is no evidence of acute fracture. There are spinal degenerative changes, with multilevel disc narrrowing and spondylosis. Soft tissues: There are no soft tissue masses or fluid collections. IMPRESSION: 1. No acute pulmonary emboli. 2. No signs of right heart strain. 3. Extensive ground-glass disease in both lungs as detailed above. Commonly reported imaging features of COVID-19 pneumonia are present. Other processes such as influenza pneumonia and organizing pneumonia, as can be seen with drug toxicity and connective tissue disease, can cause a similar imaging pattern. 4. Trace right pleural effusion. 5. Complex 10 cm left renal cortical cystic lesion, incompletely imaged on this exam. 6. Additional nonemergency and chronic findings as above. COMMENTS: Consistent with the [place] [employer]'s Incidental Findings Committee white paper (J Am Gerardo Radiol 2018): Any incidental renal lesion less than 1 cm or classified as too small to characterize, or any incidental cystic renal lesion characterized as simple-appearing, is likely benign. No follow-up imaging is recommended for these lesions per consensus recommendations based on imaging criteria.
[2021-09-24 18:17] LABS: Lymphocytes % 3 % (10-50); Monocytes % 1 % (2-9); Neutrophils % 95 % (42-76); Platelet Estimate Normal; Total Cells Counted 100
--- NOTE | 2021-09-24 18:58 | PC.NURSE ---
pt return from CT
[2021-09-24 20:11] LABS: Influenza A, PCR Not Detected (NotDetected); Influenza B, PCR Not Detected (NotDetected)
[2021-09-24 20:42] LABS: Coronavirus 19, PCR Detected (NotDetected)
[2021-09-24 20:44] LABS: C-Reactive Protein 244.5 mg/L (0-4)
--- NOTE | 2021-09-24 22:27 | PC.NURSE ---
patient up to floor via stretcher @ this time.
[2021-09-25] VITALS (7 sets, daily range): BP systolic 110–142; BP diastolic 52–81; PULSE 61–81; RESP 20–24; TEMP 36.4–37.1; O2SAT 86–94; BMI 32.3
--- NOTE | 2021-09-25 04:36 | PC.NURSE ---
No acute events thus far in this RN's shift. Patient is pleasant. Patient was educated on IS and proning while awake and asleep as tolerated. Patient verbalizing understanding. Patient has remained on 6LNC this RN's shift. Patient stating I feel better then what I was when I came in
--- NOTE | 2021-09-25 08:11 | HMH.HP ---
*Admission Date: 09/24/21 *Chief complaint: Shortness of breath *History of present illness: 46-year-old male diagnosed with COVID-19 infection via a home test approximately a week ago and seen in the office on the for [place] injections presented to the emergency department yesterday with shortness of breath. Patient states he awoke yesterday morning feeling good but that feeling did not last long when he began to notice feeling rather weak. Home pulse oximetry monitoring revealed O2 sats in the low 80s. Patient made multiple attempts at home to get his oxygen levels up by deep breathing and changes in position which were unsuccessful. He ultimately came to the emergency department where hypoxia was confirmed with O2 sat of 82% on pulse oximetry. Patient was placed on nasal cannula which relieved his hypoxia. Chest x-ray confirmed multiple patchy groundglass opacities. Patient was stabilized on oxygen and admitted for further treatment. Patient is currently on dexamethasone and Remdesivir and reports feeling well. Patient's and daughter also have COVID-19 but symptoms have been more mild. Patient has not received a COVID-19 vaccination [facility] History I have reviewed the patient's past medical history: Yes Medical History: Reports:: Anxiety, Gastroesophageal Reflux Disease(GERD) Denies:: Cancer, Diabetes Mellitus Type 1, Diabetes Mellitus Type 2, Internal Pacemaker, MRSA, Seizures *Have you ever received a pneumonia vaccine?: No *Have you received a flu vaccine this season?: No Other Medical History: Denies: Blood Transfusion Reaction Laterality Cases: Right: Other Other Surgeries: Yes: No Previous Surgery, Cardiac Catheterization, Cholecystectomy. No: Pacemaker Amputation: No Fractures: No - *Social History Last grade of school completed: High school graduate Smoking Status: Never smoker Tobacco Type: smokeless tobacco Alcohol Intake: never Substance Use Type: denies use *Occupational Status:: employed Housing: house Household Members: spouse, children *Travel in the last 8 weeks: None - Psychiatric History Pschychiatric History:: Reports:: Anxiety Family Hx:: No significant family history Review of Systems - Review of Systems Review of systems:: pertinent systems reviewed and negative unless documented below Meds Home Medications Medication Instructions Recorded Confirmed Type sertraline 50 mg tablet 50 mg PO DAILY tab 06/11/21 09/24/21 History Brompheniramine/Pseudoephed/Dm 10 ml PO Q6H 09/24/21 09/24/21 History [Crwdyhhv-[id number]-Dd 2-30-10 mg/5Ml] dexAMETHasone [Dexamethasone] 6 mg PO DIRECTED 09/24/21 09/24/21 History Allergies Allergy/AdvReac Type Severity Reaction Status Date / Time Penicillins [PENICILLINS] Allergy Mild Verified 06/11/21 09:10 Exam Vital signs and Labs for Last 24 Hours: Temp Pulse Resp BP Pulse Ox 98.2 F 74 20 142/81 H 91 L 09/25/21 07:43 09/25/21 07:43 09/25/21 07:43 09/25/21 07:43 09/25/21 07:43 Laboratory Results - last 24 hr 09/24/21 17:35: WBC 10.0, RBC 4.10 L, Hgb 13.6 L, Hct 39.0 L, MCV 95.0 H, MCH 33.1 H, MCHC 34.8, RDW 13.6, Plt Count 212, MPV 8.2, Neut % (Auto) 95.9 H, Lymph % (Auto) 3.3 L, [place] % (Auto) 0.6 L, Eos % (Auto) 0.0 L, Baso % (Auto) 0.2, Neut # (Auto) 9.6 H, Lymph # (Auto) 0.3 L, [place] # (Auto) 0.1, Eos # (Auto) 0.0, Baso # (Auto) 0.0, Total Counted 100, Neutrophils % (Manual) 95 H, Band Neutrophils % 1.0, Lymphocytes % (Manual) 3 L, Monocytes % (Manual) 1 L, Platelet Estimate Normal 09/24/21 17:35: Sodium 131 L, Potassium 4.3, Chloride 96 L, Carbon Dioxide 28, Anion Gap 11.3, BUN 20, Creatinine 0.80, Estimated Creat Clear 170, Estimated GFR 104, Est GFR ( Amer) 126, Glucose 146 H, Calcium 8.7, Total Bilirubin 1.5 H, AST 74 H, ALT 62, Alkaline Phosphatase 127 H, Total Protein 7.3, Albumin 3.9, Globulin 3.4 H, Albumin/Globulin Ratio 1.1 09/24/21 17:35: Lactate 1.4 09/24/21 17:35: C-Reactive Protein 244.5 H 09/24/21 19:07: SARS-CoV-2 (PCR
--- NOTE | 2021-09-25 09:02 | P.CONPHA_ITS ---
[facility] Pharmacy VTE Monitoring - Patient Demographics Admission date: 09/24/21 Report Date: 09/25/21 Time: 09:02 Allergies/Adverse Reactions: Patient Allergies Penicillins [PENICILLINS] Allergy (Mild, Verified 06/11/21 09:10) Height: 1.75 m Weight: 98.911 kg Patient Problems: Current Active Problems Pneumonia due to COVID-19 virus (Acute) Respiratory failure with hypoxia (Acute) Acute respiratory failure with hypoxia (Acute) COVID-19 virus infection (Acute) Viral pneumonia (Acute) - VTE Risk Labs: VTE Related Lab Results Hgb 13.6 g/dL (14.1-18.0) L 09/24/21 17:35 Hct 39.0 % (42.0-52.0) L 09/24/21 17:35 Plt Count 212 K/mm3 (142-424) 09/24/21 17:35 BUN 20 mg/dl (9-20) 09/24/21 17:35 Creatinine 0.80 mg/dl (0.66-1.25) 09/24/21 17:35 Estimated Creat Clear 170 mL/min (50-200) 09/24/21 17:35 Was VTE Risk Assessment Performed: Yes VTE Score: 2 VTE Risk Level: Very Low Risk - Prophylaxis VTE Prophylaxis Ordered?: Yes Types of VTE Prophylaxis: TEDS Knee High Location of Applied Device: Bilateral Lower Extremeties
--- NOTE | 2021-09-25 09:03 | HMH.PHAINT ---
MEDICATION RECONCILIATION COMPLETED ON PATIENT USING EXTERNAL FILL HISTORY FROM PHARMACY. -SHARONDA ROSALES, KELLID
--- NOTE | 2021-09-25 12:00 | PC.NURSE ---
contacted MD regarding pt o2 saturation and requiring additional oxygen. New orders received.
--- NOTE | 2021-09-25 13:16 | PC.NURSE ---
contacted MD regarding pt continuing to sat low despitr medication and increased o2. Pt increased to 30/100 on vapotherm and lasix ordered. Pt is now regting in bed. Saturation is 96%
--- NOTE | 2021-09-25 13:30 | PC.NURSE ---
pt is resting more comfortably @ this time. Spoke to his regarding his new orders and about me speaking with the psysician
[2021-09-26] VITALS (11 sets, daily range): BP systolic 100–141; BP diastolic 51–85; PULSE 64–80; RESP 18–24; TEMP 36.6–37; O2SAT 90–96; BMI 32.8
--- NOTE | 2021-09-26 05:08 | PC.NURSE ---
pt has rested well t/o shift, was anxious at beginning of shift, was treated per DEC, has remained on vapotherm 30L/100%, sats 90-94%, does desat with exertion, has dropped to around 80% but does recover to 90% within 5 minutes, has not complained of SOA or pain, urine output of 2000 mL so far this shift
[2021-09-26 07:45] LABS: Albumin Level 3.2 g/dl (3.5-5.0); Alkaline Phosphatase 111 U/L (38-126); Anion Gap 5.1 mEq/L (5-15); Aspartate Amino Transferase 112 U/L (17-59); Bilirubin,Total 1.6 mg/dl (0.2-1.3); Blood Urea Nitrogen 21 mg/dl (9-20); Calcium 8.2 mg/dl (8.4-10.2); Carbon Dioxide 30 mmol/L (22.0-30.0); Chloride 98 mmol/L (98-107); Creatinine Clearance Estimated 219 mL/min (50-200); Estimated Glomerular Filt Rate 145 ml/min (>60); GFR (African American) 176 ML/MIN (>60); Globulin 3.2 g/dL (1.3-3.2); Glucose 136 mg/dl (74-100); Potassium 4.1 mmoL/L (3.5-5.1); Sodium 129 mmol/L (136-145); Total Protein,Serum 6.4 g/dl (6.3-8.2)
--- NOTE | 2021-09-26 08:09 | HMH.ACPN2 ---
Internal Medicine - PN: Subj *Date: 09/26/21 *Time: 08:09 Interval history: Patient decompensated yesterday afternoon with precipitous drop in O2 sats to the 70s which required application of HFNC to bring sats back to the low 90s. Patient admits to a severe panic attack . HFNC plus prone positioning allowed the patient to recover. He admits that he is rather anxious about this diagnosis. This morning he is feeling slightly better. Exam Vital signs and Labs for Last 24 Hours: Temp Pulse Resp BP Pulse Ox 98.5 F 66 20 100/72 L 94 L 09/26/21 07:52 09/26/21 07:52 09/26/21 07:52 09/26/21 07:52 09/26/21 07:52 Laboratory Results - last 24 hr 09/26/21 06:46: Sodium 129 L, Potassium 4.1, Chloride 98, Carbon Dioxide 30, Anion Gap 5.1, BUN 21 H, Creatinine 0.60 L D, Estimated Creat Clear 219, Estimated GFR 145, Est GFR ( Amer) 176 D, Glucose 136 H, Calcium 8.2 L, Total Bilirubin 1.6 H, AST 112 H D, Alkaline Phosphatase 111, Total Protein 6.4, Albumin 3.2 L, Globulin 3.2, Albumin/Globulin Ratio 1.0 L I & O for Last 24 hours: Intake & Output 09/23/21 09/24/21 09/25/21 09/26/21 11:59 11:59 11:59 11:59 Intake Total 720 / 720 720 / 720 Output Total 2300 / 2300 Balance 720 / 720 -1580 / -1580 Weight 218 lb 1 oz 221 lb 8 oz Narrative: Patient is supine in bed and shows no increased work of breathing. Lungs have diffuse rales and rhonchi's bilaterally anteriorly and posteriorly. Heart has a regular rate and rhythm. Abdomen remains soft and nontender. Lower extremities are without edema Assessment and Plan (1) Acute respiratory failure with hypoxia Status: Acute Category: Medical Code(s): J96.01 - Acute respiratory failure with hypoxia (2) COVID-19 virus infection Status: Acute Category: Medical Code(s): U07.1 - COVID-19 (3) Viral pneumonia Status: Acute Category: Medical Code(s): J12.9 - Viral pneumonia, unspecified - Assessment and plan all Dx Assessment and Plan for all problems:: 1. Continue dexamethasone, Remdesivir, baricitinib for acute respiratory failure due to COVID-19 pneumonia requiring high flow supplemental oxygen 2. IV Ativan has been ordered for anxiety and patient has been encouraged to use this to allow for more comfort and prone positioning
[2021-09-26 08:17] LABS: Alanine Aminotransferase 89 U/L (12-78)
--- NOTE | 2021-09-26 18:22 | PC.NURSE ---
pt has done well this shift. Has tolerated the vapotherm today. He has complained of less anxiety through out the day. I have encouraged him to prone and continue educated him on the sputum collection.
[2021-09-27] VITALS (10 sets, daily range): BP systolic 130–159; BP diastolic 70–93; PULSE 57–94; RESP 18–22; TEMP 36.8–37.2; O2SAT 3–99; BMI 32.7
--- NOTE | 2021-09-27 04:26 | PC.NURSE ---
Pt. requested ativan for anxiety hs and has slept through most of night. No c/o n/v/d, pain or dizziness. C/o some soa and occasional dry cough. Lungs diminished bilat.
[2021-09-27 06:37] LABS: Basophils % 0.2 % (0.1-2.0); Hematocrit 34.4 % (42.0-52.0); Hemoglobin 11.8 g/dL (14.1-18.0); Lymphocytes % 13.2 % (10-50); Mean Corpuscular HGB Conc 34.5 g/dL (31.8-35.4); Mean Corpuscular Hemoglobin 32.9 pg (27.0-31.2); Mean Corpuscular Volume 95.3 fl (80-94); Mean Platelet Volume 8.3 fl (7.4-10.4); Monocytes # 0.1 K/mm3 (0.1-1.0); Monocytes % 1.3 % (1.7-9.3); Neutrophils # 6.3 K/mm3 (1.8-7.8); Neutrophils % 85.3 % (37.0-80.0); Platelet Count 238 K/mm3 (142-424); Red Cell Distribution Width 14.3 % (11.5-17.5); White Blood Count 7.4 K/mm3 (4.8-10.8)
[2021-09-27 06:42] LABS: MANUAL DIFFERENTIAL MANUAL DIFFERENTIAL (MANUAL DIFF)
[2021-09-27 06:46] LABS: Alanine Aminotransferase 93 U/L (12-78); Albumin Level 3.1 g/dl (3.5-5.0); Alkaline Phosphatase 108 U/L (38-126); Anion Gap 6.9 mEq/L (5-15); Aspartate Amino Transferase 91 U/L (17-59); Bilirubin,Total 1.3 mg/dl (0.2-1.3); Blood Urea Nitrogen 18 mg/dl (9-20); Calcium 8.4 mg/dl (8.4-10.2); Carbon Dioxide 29 mmol/L (22.0-30.0); Chloride 100 mmol/L (98-107); Creatinine Clearance Estimated 187 mL/min (50-200); Estimated Glomerular Filt Rate 121 ml/min (>60); GFR (African American) 147 ML/MIN (>60); Globulin 3.1 g/dL (1.3-3.2); Glucose 107 mg/dl (74-100); Potassium 3.9 mmoL/L (3.5-5.1); Sodium 132 mmol/L (136-145); Total Protein,Serum 6.2 g/dl (6.3-8.2)
--- NOTE | 2021-09-27 07:21 | P.PN_ITS ---
Internal Medicine - PN: Subj *Date: 09/27/21 *Time: 07:21 Interval history: No new complaints. Patient remains quite anxious about his illness. He remains on HFNC with FiO2 decreased slightly to 95% this morning Exam Vital signs and Labs for Last 24 Hours: Temp Pulse Resp BP Pulse Ox 98.6 F 71 20 130/74 94 L 09/27/21 03:57 09/27/21 05:32 09/27/21 03:57 09/27/21 03:57 09/27/21 05:32 Laboratory Results - last 24 hr 09/26/21 06:46: Sodium 129 L, Potassium 4.1, Chloride 98, Carbon Dioxide 30, Anion Gap 5.1, BUN 21 H, Creatinine 0.60 L D, Estimated Creat Clear 219, Estimated GFR 145, Est GFR ( Amer) 176 D, Glucose 136 H, Calcium 8.2 L, Total Bilirubin 1.6 H, AST 112 H D, ALT 89 H D, Alkaline Phosphatase 111, Total Protein 6.4, Albumin 3.2 L, Globulin 3.2, Albumin/Globulin Ratio 1.0 L 09/27/21 06:02: Sodium 132 L, Potassium 3.9, Chloride 100, Carbon Dioxide 29, Anion Gap 6.9, BUN 18, Creatinine 0.70, Estimated Creat Clear 187, Estimated GFR 121, Est GFR ( Amer) 147, Glucose 107 H D, Calcium 8.4, Total Bilirubin 1.3, AST 91 H, ALT 93 H, Alkaline Phosphatase 108, C-Reactive Protein 49.0 H D, Total Protein 6.2 L, Albumin 3.1 L, Globulin 3.1, Albumin/Globulin Ratio 1.0 L 09/27/21 06:02: WBC 7.4 D, RBC 3.60 L, Hgb 11.8 L, Hct 34.4 L, MCV 95.3 H, MCH 32.9 H, MCHC 34.5, RDW 14.3, Plt Count 238, MPV 8.3, Neut % (Auto) 85.3 H, Lymph % (Auto) 13.2, [place] % (Auto) 1.3 L, Eos % (Auto) 0.0 L, Baso % (Auto) 0.2, Neut # (Auto) 6.3, Lymph # (Auto) 1.0, [place] # (Auto) 0.1, Eos # (Auto) 0.0, Baso # (Auto) 0.0 I & O for Last 24 hours: Intake & Output 09/24/21 09/25/21 09/26/21 09/27/21 11:59 11:59 11:59 11:59 Intake Total 720 / 720 720 / 720 840 / 840 Output Total 2300 / 2300 1700 / 1700 Balance 720 / 720 -1580 / -1580 -860 / -860 Weight 218 lb 1 oz 221 lb 8 oz 221 lb 1 oz Microbiology Reports for the Last 24 Hours: Microbiology 09/24/21 17:48 Blood Blood Culture - Preliminary NO GROWTH AFTER 48 HOURS 09/24/21 17:48 Blood Blood Culture - Preliminary NO GROWTH AFTER 48 HOURS Narrative: Patient looks anxious and has mild tachypnea. Lungs have distant breath sounds with scattered rales. Heart has a regular rate and rhythm. Lower extremities have no edema Assessment and Plan (1) Acute respiratory failure with hypoxia Status: Acute Category: Medical Code(s): J96.01 - Acute respiratory failure with hypoxia (2) COVID-19 virus infection Status: Acute Category: Medical Code(s): U07.1 - COVID-19 (3) Viral pneumonia Status: Acute Category: Medical Code(s): J12.9 - Viral pneumonia, unspecified - Assessment and plan all Dx Assessment and Plan for all problems:: 1. Continue Remdesivir, dexamethasone, baricitinib for COVID-19 pneumonia with acute respiratory failure 2. Encourage ambulation and incentive spirometry 3. Wean oxygen to keep sats greater than 90%
[2021-09-27 09:21] LABS: Lymphocytes % 14 % (10-50); Monocytes % 3 % (2-9); Neutrophils % 83 % (42-76); Platelet Estimate Normal; RBC Morphology Normal; Total Cells Counted 100
--- NOTE | 2021-09-27 10:27 | PC.NURSE ---
RESP CARE NTE; Found patient on 30 lpm/ 95% FIO2. Decreased oxygen [id number]/90% FIO2;
--- NOTE | 2021-09-27 11:20 | PC.NURSE ---
This Rn took over pt care @ this time. Report received from Jasmeet Briones RN
--- NOTE | 2021-09-27 15:23 | PC.NURSE ---
Addendum entered by Jennifer Capone RN 09/27/21 18:58: Vapotherm is 30L Original Note: Pt is alert and oriented x4. Lungs are clear but diminished. He is currently on vapotherm 40L/85% w/O2 sats in low-mid 90's. PRN phenergan administered for nausea w/relief noted on reassessment. He has used a urinal at the bedside. Appetite has been fair. He is currently resting in bed w/his eyes closed.
[2021-09-28] VITALS (12 sets, daily range): BP systolic 114–140; BP diastolic 63–76; PULSE 62–94; RESP 19–24; TEMP 36.4–38; O2SAT 93–97; BMI 32.6
--- NOTE | 2021-09-28 06:07 | PC.NURSE ---
Pt has had an uneventful night, has remained on vapotherm 30L 80% with sats remaining above 90%. No c/o pain or SOA this shift. Call kruse in reach will continue to monitor.
[2021-09-28 06:34] LABS: Basophils % 0.1 % (0.1-2.0); Eosinophils # 0.1 K/mm3 (0.0-0.4); Eosinophils % 0.9 % (0.1-12.0); Hematocrit 33.3 % (42.0-52.0); Hemoglobin 11.4 g/dL (14.1-18.0); Lymphocytes # 1.2 K/mm3 (0.7-4.5); Lymphocytes % 22.2 % (10-50); Mean Corpuscular HGB Conc 34.2 g/dL (31.8-35.4); Mean Corpuscular Hemoglobin 32.7 pg (27.0-31.2); Mean Corpuscular Volume 95.7 fl (80-94); Mean Platelet Volume 8.9 fl (7.4-10.4); Monocytes # 0.1 K/mm3 (0.1-1.0); Monocytes % 1.2 % (1.7-9.3); Neutrophils # 4.1 K/mm3 (1.8-7.8); Neutrophils % 75.6 % (37.0-80.0); Platelet Count 279 K/mm3 (142-424); Red Blood Count 3.48 M/mm3 (4.60-6.20); Red Cell Distribution Width 14.1 % (11.5-17.5); White Blood Count 5.4 K/mm3 (4.8-10.8)
[2021-09-28 06:51] LABS: Alanine Aminotransferase 90 U/L (12-78); Albumin Level 3.1 g/dl (3.5-5.0); Alkaline Phosphatase 92 U/L (38-126); Anion Gap 7.9 mEq/L (5-15); Aspartate Amino Transferase 74 U/L (17-59); Bilirubin,Total 1.3 mg/dl (0.2-1.3); Blood Urea Nitrogen 18 mg/dl (9-20); Calcium 8.8 mg/dl (8.4-10.2); Carbon Dioxide 27 mmol/L (22.0-30.0); Chloride 99 mmol/L (98-107); Creatinine Clearance Estimated 186 mL/min (50-200); Estimated Glomerular Filt Rate 121 ml/min (>60); GFR (African American) 147 ML/MIN (>60); Glucose 96 mg/dl (74-100); Potassium 3.9 mmoL/L (3.5-5.1); Sodium 130 mmol/L (136-145); Total Protein,Serum 6.1 g/dl (6.3-8.2)
--- NOTE | 2021-09-28 07:20 | P.PN_ITS ---
Internal Medicine - PN: Subj *Date: 09/28/21 *Time: 07:20 Interval history: Patient has no complaints. FiO2 has been weaned on HFNC to 75%. Exam Vital signs and Labs for Last 24 Hours: Temp Pulse Resp BP Pulse Ox 99.2 F 93 H 19 123/70 94 L 09/28/21 04:00 09/28/21 05:58 09/28/21 04:00 09/28/21 04:00 09/28/21 05:58 Laboratory Results - last 24 hr 09/27/21 06:02: Total Counted 100, Neutrophils % (Manual) 83 H, Lymphocytes % (Manual) 14, Monocytes % (Manual) 3, Platelet Estimate Normal, RBC Morphology Normal 09/28/21 06:06: Sodium 130 L, Potassium 3.9, Chloride 99, Carbon Dioxide 27, Anion Gap 7.9, BUN 18, Creatinine 0.70, Estimated Creat Clear 186, Estimated GFR 121, Est GFR ( Amer) 147, Glucose 96, Calcium 8.8, Total Bilirubin 1.3, AST 74 H, ALT 90 H, Alkaline Phosphatase 92, Total Protein 6.1 L, Albumin 3.1 L, Globulin 3.0, Albumin/Globulin Ratio 1.0 L 09/28/21 06:06: WBC 5.4 D, RBC 3.48 L, Hgb 11.4 L, Hct 33.3 L, MCV 95.7 H, MCH 32.7 H, MCHC 34.2, RDW 14.1, Plt Count 279, MPV 8.9, Neut % (Auto) 75.6, Lymph % (Auto) 22.2, [place] % (Auto) 1.2 L, Eos % (Auto) 0.9, Baso % (Auto) 0.1, Neut # (Auto) 4.1, Lymph # (Auto) 1.2, [place] # (Auto) 0.1, Eos # (Auto) 0.1, Baso # (Auto) 0.0 I & O for Last 24 hours: Intake & Output 09/25/21 09/26/21 09/27/21 09/28/21 11:59 11:59 11:59 11:59 Intake Total 720 / 720 720 / 720 1320 / 1320 600 / 600 Output Total 2300 / 2300 1700 / 1700 2100 / 2100 Balance 720 / 720 -1580 / -1580 -380 / -380 -1500 / -1500 Weight 218 lb 1 oz 221 lb 8 oz 221 lb 1 oz 220 lb 6 oz - Constitutional no acute distress - *Routine Respiratory Exam Present: CTA bilaterally - *Routine Cardiovascular Exam Present: RRR Assessment and Plan (1) Acute respiratory failure with hypoxia Status: Acute Category: Medical Code(s): J96.01 - Acute respiratory failure with hypoxia (2) COVID-19 virus infection Status: Acute Category: Medical Code(s): U07.1 - COVID-19 (3) Viral pneumonia Status: Acute Category: Medical Code(s): J12.9 - Viral pneumonia, unspecified - Assessment and plan all Dx Assessment and Plan for all problems:: Patient is showing signs of improvement. Continue weaning FiO2 as tolerated. Continue Remdesivir, dexamethasone, baricitinib, prone positioning
--- NOTE | 2021-09-28 15:19 | PC.NURSE ---
Pt has been pleasant and cooperative this shift. A&O X4. No complaints of pain or SOA. Pt is currently receiving O2 via Vapotherm @ 30 LPM/60% with sats. >90%. Lungs CTA. No edema noted. Skin is C/D/I. Pt ambulates independently. Pt uses the urinal to void clear, dark-yellow urine without issue. No BM thus far this shift. Pt sat up in the recliner for a few hours today. Appetite is fair and pt eats about 50-75% of all meals. 20 G peripheral IV in the LT hand is patent and SL. Mild temperature noted this AM. Tylenol given per DEC. Other VSS. Call light within reach. Will continue to monitor.
[2021-09-29] VITALS (11 sets, daily range): BP systolic 86–133; BP diastolic 54–78; PULSE 61–74; RESP 17–20; TEMP 36.6–37.3; O2SAT 90–97; BMI 32.3
--- NOTE | 2021-09-29 05:55 | PC.NURSE ---
Patient has rested well t/o shift. A&Ox 4 and has remained on vapotherm 30L at 60% with sats remaining above 90%.pt has had no c/o SOA or pain this shift. VSS this shift, call kruse in reach will continue to monitor.
--- NOTE | 2021-09-29 07:15 | P.PN_ITS ---
Internal Medicine - PN: Subj *Date: 09/29/21 *Time: 07:15 Interval history: No acute events over the last 24 hours. Patient states the last 24 hours have been going well. He was out of bed to chair yesterday. He endorses some stiffness as well as indigestion Exam Vital signs and Labs for Last 24 Hours: Temp Pulse Resp BP Pulse Ox 98.4 F 68 17 107/63 L 90 L 09/29/21 04:00 09/29/21 05:52 09/29/21 04:00 09/29/21 04:00 09/29/21 05:52 I & O for Last 24 hours: Intake & Output 09/26/21 09/27/21 09/28/21 09/29/21 11:59 11:59 11:59 11:59 Intake Total 720 / 720 1320 / 1320 600 / 600 580 / 580 Output Total 2300 / 2300 1700 / 1700 2100 / 2100 2400 / 2400 Balance -1580 / -1580 -380 / -380 -1500 / -1500 -1820 / -1820 Weight 221 lb 8 oz 221 lb 1 oz 220 lb 6 oz 218 lb Microbiology Reports for the Last 24 Hours: Microbiology 09/28/21 06:01 Sputum - Expectorated Sputum Gram Stain - Final 09/28/21 06:01 Sputum - Expectorated Sputum Sputum Culture - Preliminary - Constitutional no acute distress - *Routine Respiratory Exam Present: rales - *Routine Cardiovascular Exam Present: RRR - *Routine Abdominal Exam Present: soft, normoactive bowel sounds. Absent: tenderness Assessment and Plan (1) Acute respiratory failure with hypoxia Status: Acute Category: Medical Code(s): J96.01 - Acute respiratory failure with hypoxia (2) COVID-19 virus infection Status: Acute Category: Medical Code(s): U07.1 - COVID-19 (3) Viral pneumonia Status: Acute Category: Medical Code(s): J12.9 - Viral pneumonia, unspecified - Assessment and plan all Dx Assessment and Plan for all problems:: 1. Continue Remdesivir, dexamethasone, baricitinib and weaning HFNC as ibrahima erated to keep sats greater than 90% 2. Out of bed to chair as tolerated. Continue prone positioning as tolerated
[2021-09-29 08:08] LABS: Basophils % 0.1 % (0.1-2.0); Eosinophils # 0.1 K/mm3 (0.0-0.4); Eosinophils % 2.2 % (0.1-12.0); Hematocrit 31.2 % (42.0-52.0); Lymphocytes # 0.9 K/mm3 (0.7-4.5); Lymphocytes % 18.9 % (10-50); Mean Corpuscular HGB Conc 35.4 g/dL (31.8-35.4); Mean Corpuscular Hemoglobin 33.4 pg (27.0-31.2); Mean Corpuscular Volume 94.3 fl (80-94); Mean Platelet Volume 8.8 fl (7.4-10.4); Monocytes # 0.1 K/mm3 (0.1-1.0); Monocytes % 1.4 % (1.7-9.3); Neutrophils # 3.7 K/mm3 (1.8-7.8); Neutrophils % 77.3 % (37.0-80.0); Platelet Count 323 K/mm3 (142-424); Red Blood Count 3.31 M/mm3 (4.60-6.20); Red Cell Distribution Width 14.1 % (11.5-17.5); White Blood Count 4.8 K/mm3 (4.8-10.8)
[2021-09-29 08:20] LABS: Chloride 99 mmol/L (98-107); Potassium 3.6 mmoL/L (3.5-5.1); Sodium 130 mmol/L (136-145)
[2021-09-29 08:23] LABS: Alanine Aminotransferase 69 U/L (12-78); Alkaline Phosphatase 99 U/L (38-126); Anion Gap 8.6 mEq/L (5-15); Aspartate Amino Transferase 59 U/L (17-59); Bilirubin,Total 1.3 mg/dl (0.2-1.3); Blood Urea Nitrogen 16 mg/dl (9-20); Calcium 8.5 mg/dl (8.4-10.2); Carbon Dioxide 26 mmol/L (22.0-30.0); Creatinine Clearance Estimated 215 mL/min (50-200); Estimated Glomerular Filt Rate 145 ml/min (>60); GFR (African American) 176 ML/MIN (>60); Glucose 102 mg/dl (74-100)
--- NOTE | 2021-09-29 17:48 | PC.NURSE ---
Pt has been pleasant and cooperative this shift. A&O X4. No complaints of pain or SOA. Pt is currently receiving O2 via Vapotherm @ 20 LPM/40% with sats. >90%. Lungs CTA. No edema noted. Skin is C/D/I. Pt ambulates independently. Pt uses the urinal to void clear, dark-yellow urine without issue. No BM thus far this shift. Appetite is fair and pt eats about 50-75% of all meals. 20 G peripheral IV in the LT hand is patent and SL. VSS. Call light within reach. Will continue to monitor.
[2021-09-30] VITALS (8 sets, daily range): BP systolic 116–136; BP diastolic 62–68; PULSE 53–81; RESP 18–22; TEMP 36.3–36.7; O2SAT 86–99; BMI 32.3
--- NOTE | 2021-09-30 05:39 | PC.NURSE ---
Pt rested well thus far in shift. Pt was placed on high flow NC @ 10L and as maintained 97% and above since 03:30. Pt has voiced no c/o of pain or SOA this shift. Pt is eager to get home. Call light within reach.
--- NOTE | 2021-09-30 07:20 | P.PN_ITS ---
Internal Medicine - PN: Subj *Date: 09/30/21 *Time: 07:20 Interval history: Patient has no complaints this morning. He has been weaned off HFNC and is now resting and maintaining O2 sats via nasal cannula at 10 L/min. Patient reports feeling good Exam Vital signs and Labs for Last 24 Hours: Temp Pulse Resp BP Pulse Ox 97.6 F 58 L 18 120/62 99 09/30/21 04:00 09/30/21 06:28 09/30/21 04:00 09/30/21 04:00 09/30/21 06:28 Laboratory Results - last 24 hr 09/29/21 07:40: Sodium 130 L, Potassium 3.6, Chloride 99, Carbon Dioxide 26, Anion Gap 8.6, BUN 16, Creatinine 0.60 L, Estimated Creat Clear 215, Estimated GFR 145, Est GFR ( Amer) 176, Glucose 102 H, Calcium 8.5, Total Bilirubin 1.3, AST 59, ALT 69, Alkaline Phosphatase 99, Total Protein 6.0 L, Albumin 3.0 L , Globulin 3.0, Albumin/Globulin Ratio 1.0 L 09/29/21 07:40: WBC 4.8, RBC 3.31 L, Hgb 11.0 L, Hct 31.2 L, MCV 94.3 H, MCH 33.4 H, MCHC 35.4, RDW 14.1, Plt Count 323, MPV 8.8, Neut % (Auto) 77.3, Lymph % (Auto) 18.9, [place] % (Auto) 1.4 L, Eos % (Auto) 2.2, Baso % (Auto) 0.1, Neut # (Auto) 3.7, Lymph # (Auto) 0.9, [place] # (Auto) 0.1, Eos # (Auto) 0.1, Baso # (Auto) 0.0 I & O for Last 24 hours: Intake & Output 09/27/21 09/28/21 09/29/21 09/30/21 11:59 11:59 11:59 11:59 Intake Total 1320 / 1320 600 / 600 940 / 940 820 / 820 Output Total 1700 / 1700 2100 / 2100 2800 / 2800 1000 / 1000 Balance -380 / -380 -1500 / -1500 -1860 / -1860 -180 / -180 Weight 221 lb 1 oz 220 lb 6 oz 218 lb 217 lb 14.4 oz Microbiology Reports for the Last 24 Hours: Microbiology 09/24/21 17:48 Blood Blood Culture - Final NO GROWTH AFTER 5 DAYS 09/24/21 17:48 Blood Blood Culture - Final NO GROWTH AFTER 5 DAYS 09/28/21 06:01 Sputum - Expectorated Sputum Gram Stain - Final 09/28/21 06:01 Sputum - Expectorated Sputum Sputum Culture - Preliminary Narrative: He looks comfortable. Lungs still have some faint rales in the left upper lobe. Heart has a regular rate and rhythm. Assessment and Plan (1) Acute respiratory failure with hypoxia Status: Acute Category: Medical Code(s): J96.01 - Acute respiratory failure with hypoxia (2) COVID-19 virus infection Status: Acute Category: Medical Code(s): U07.1 - COVID-19 (3) Viral pneumonia Status: Acute Category: Medical Code(s): J12.9 - Viral pneumonia, unspecified - Assessment and plan all Dx Assessment and Plan for all problems:: 1. Continue Covid treatments. Patient is improving. As long as patient continues to improve at this rate anticipate discharge in the next 1 to 2 days
[2021-09-30 07:21] LABS: Basophils % 0.2 % (0.1-2.0); Eosinophils # 0.1 K/mm3 (0.0-0.4); Eosinophils % 2.5 % (0.1-12.0); Lymphocytes # 1.1 K/mm3 (0.7-4.5); Lymphocytes % 23.2 % (10-50); Mean Corpuscular HGB Conc 35.6 g/dL (31.8-35.4); Mean Corpuscular Hemoglobin 33.4 pg (27.0-31.2); Mean Corpuscular Volume 93.7 fl (80-94); Mean Platelet Volume 8.7 fl (7.4-10.4); Monocytes # 0.1 K/mm3 (0.1-1.0); Monocytes % 1.6 % (1.7-9.3); Neutrophils # 3.5 K/mm3 (1.8-7.8); Neutrophils % 72.4 % (37.0-80.0); Platelet Count 395 K/mm3 (142-424); Red Blood Count 3.31 M/mm3 (4.60-6.20); Red Cell Distribution Width 14.2 % (11.5-17.5); White Blood Count 4.8 K/mm3 (4.8-10.8)
[2021-09-30 07:25] LABS: Chloride 101 mmol/L (98-107)
[2021-09-30 07:26] LABS: Sodium 133 mmol/L (136-145)
[2021-09-30 07:28] LABS: Alanine Aminotransferase 65 U/L (12-78); Alkaline Phosphatase 101 U/L (38-126); Aspartate Amino Transferase 51 U/L (17-59); Bilirubin,Total 0.9 mg/dl (0.2-1.3); Blood Urea Nitrogen 15 mg/dl (9-20); Carbon Dioxide 27 mmol/L (22.0-30.0); Creatinine Clearance Estimated 215 mL/min (50-200); Estimated Glomerular Filt Rate 145 ml/min (>60); GFR (African American) 176 ML/MIN (>60)
[2021-09-30 07:29] LABS: Albumin Level 3.1 g/dl (3.5-5.0); Calcium 8.6 mg/dl (8.4-10.2); Glucose 105 mg/dl (74-100); Total Protein,Serum 6.1 g/dl (6.3-8.2)
--- NOTE | 2021-09-30 13:09 | SW/DCPLANNER ---
SET UP HOME 02 FOR THIS PATIENT THAT IS DISCHARGING HOME TODAY.. A PORTABLE WILL BE BROUGHT UP TO THE HOSPITAL PRIOR TO LEAVING.
--- NOTE | 2021-09-30 14:07 | PC.NURSE ---
PT IS RESTING IN BED. TOLERATING AMBULATING AROUND THE ROOM WITH OXYGEN AT 4 L. O2 SATURATION MAINTAINING 91-95%. PT STATES HE FEELS GREAT AND IT REALLY WANTING TO GO HOME TO SEE HIS AND CHILDREN. NOTIFIED . PT WILL BE DISCHARGED HOME WITH OXYGEN AND A FOLLOW UP APPOINTMENT 10/05 @ 6320.
--- NOTE | 2021-10-01 07:09 | HMH.DCSUM ---
General - General Admission date:: 09/24/21 Discharge date: 09/30/21 HPI HPI: 46-year-old male diagnosed with COVID-19 infection via a home test approximately a week ago and seen in the office on the for [facility] injections presented to the emergency department yesterday with shortness of breath. Patient states he awoke yesterday morning feeling good but that feeling did not last long when he began to notice feeling rather weak. Home pulse oximetry monitoring revealed O2 sats in the low 80s. Patient made multiple attempts at home to get his oxygen levels up by deep breathing and changes in position which were unsuccessful. He ultimately came to the emergency department where hypoxia was confirmed with O2 sat of 82% on pulse oximetry. Patient was placed on nasal cannula which relieved his hypoxia. Chest x-ray confirmed multiple patchy groundglass opacities. Patient was stabilized on oxygen and admitted for further treatment. Patient is currently on dexamethasone and Remdesivir and reports feeling well. Patient's and daughter also have COVID-19 but symptoms have been more mild. Patient has not received a COVID-19 vaccination Hospital Course Hospital Course: Patient was admitted for treatment of COVID-19 pneumonia with acute respiratory failure. The day after admission patient became acutely more short of breath with desaturations into the 70s that required application of high flow nasal cannula. Patient was started on 30 L/min at an FiO2 of 100% which brought his O2 sats back to the 90s. Baricitinib was added to his treatment regimen. Patient remained on this treatment regimen until oxygen was able to be weaned. Late in the day on September 29 patient was weaned back to simple nasal cannula at 10 L/min. By the following day, September 30, patient had weaned to 4 L/min and was maintaining O2 sats in the mid 90s. Patient was feeling well. He had minimal cough.Sputum and blood cultures were negative during hospitalization. Patient was discharged home and would continue a course of dexamethasone. Patient will follow up in the office next week Objective Vital signs: Temp Pulse Resp BP Pulse Ox 98.1 F 81 20 116/68 86 L 09/30/21 12:00 09/30/21 14:40 09/30/21 12:00 09/30/21 12:00 09/30/21 12:55 no acute distress - *Routine Respiratory Exam Present: rales - *Routine Cardiovascular Exam Present: RRR - *Routine Abdominal Exam Present: soft, normoactive bowel sounds. Absent: tenderness Results Labs on day of discharge: Labs from last 24 hours 09/30/21 09/30/21 06:36 06:36 WBC 4.8 RBC 3.31 L Hgb 11.0 L Hct 31.0 L MCV 93.7 MCH 33.4 H MCHC 35.6 H RDW 14.2 Plt Count 395 MPV 8.7 Neut % (Auto) 72.4 Lymph % (Auto) 23.2 [place] % (Auto) 1.6 L Eos % (Auto) 2.5 Baso % (Auto) 0.2 Neut # (Auto) 3.5 Lymph # (Auto) 1.1 [place] # (Auto) 0.1 Eos # (Auto) 0.1 Baso # (Auto) 0.0 Sodium 133 L Potassium 4.0 Chloride 101 Carbon Dioxide 27 Anion Gap 9.0 BUN 15 Creatinine 0.60 L Estimated Creat Clear 215 Estimated GFR 145 Est GFR ( Amer) 176 Glucose 105 H Calcium 8.6 Total Bilirubin 0.9 AST 51 ALT 65 Alkaline Phosphatase 101 Total Protein 6.1 L Albumin 3.1 L Globulin 3.0 Albumin/Globulin Ratio 1.0 L DS: Diagnosis - Discharge Diagnosis (1) Acute respiratory failure with hypoxia Status: Acute (2) COVID-19 virus infection Status: Acute (3) Viral pneumonia Status: Acute Discharge Plan - Patient Discharge Instructions ACTIVITY: Continue current activity DIET: continue same diet Patient Instructions: Pneumonia-Adult, DI for Respiratory Failure, DI for COVID-19 (Suspected or Confirmed ), Nutrition and Hydration: [employer] Fight Against COVID-19 - Follow up Plan Follow up with: Michael Chiu MD [Primary Care Provider] - 10/05/21 Disposition: Home, Self-Care Condition at discharge::
== END 2021-09-30 15:11 | disposition home or self-care (01) | DRG 177 ==
LOC: ER 20:51 → 2ND 21:19
PROVIDERS: Admitting Provider Internal Medicine Adolescent Medicine; Emergency Provider Emergency Medicine; PCP Family Medicine; Visit Provider Family Medicine
DX: U07.1 COVID-19 (principal); J12.82 Pneumonia due to coronavirus disease 2019; J96.01 Acute respiratory failure with hypoxia; F41.9 Anxiety disorder, unspecified; F41.0 Panic disorder [episodic paroxysmal anxiety]
CPT/HCPCS: 36415; 71045; 71275; 80053; 83605; 85007; 85025; 86140; 87040; 87070; 87205; 94640; 94761; 99284; C9803; Q9967; U0003; U0005

== ENCOUNTER 2022-06-25 09:34 | Emergency (ER) | payer OTHER, SELFPAY ==
[2022-06-25 10:03] VITALS: BP 115/70; PULSE 72; RESP 16; TEMP 36.7; O2SAT 97; BMI 34.0
--- NOTE | 2022-06-25 10:04 | EXP.UTC ---
Discharge Plan Disposition Patient Disposition: Home, Self-Care Condition: Good Chief Complaint: Upper Respiratory Infection Prescriptions Prescriptions: New doxycycline monohydrate 100 mg tablet 100 mg PO BID Qty: 20 0RF prednisone 20 mg tablet 20 mg PO BID Qty: 10 0RF dextromethorphan-guaifenesin [Mucinex DM] 60-1,200 mg tablet extended release 12 hr 1 tab PO DAILY Qty: 20 0RF albuterol sulfate 90 mcg/actuation HFA aerosol inhaler 2 inh inhalation Q4-6H PRN (Reason: shortness of breath or wheezing) Qty: 8.5 0RF No Action sertraline 50 mg tablet 50 mg PO DAILY Label Comments: TAKE 1 TABLET BY MOUTH EVERY DAY dexamethasone 6 MG tablet 6 mg PO DIRECTED [id number] 118 ML syrup 10 ml PO Q6H Referrals Follow up/Referrals: Adeola Méndez APRN [Primary Care Provider] - See instructions Activity Restrictions/Add. Instructions Additional Instructions/Restrictions: You have been tested for COVID19. Please isolate yourself as if you are positive until test results received. Current CDC guidelines are quarantine X 5 days from onset of symptoms, with an additional 5 days of mask wearing at all times. If you have difficulty breathing, signs of dehydration, etc please seek treatment at ER. Clinical Impressions Clinical Impression: Upper respiratory infection, Close exposure to 2019-nCoV, History of acute respiratory distress syndrome (ARDS) Discharge ED Provider: Anita Jimenez [facility] General Chief complaint: Upper Respiratory Infection Stated complaint: sore throat, runny nose, cough Time Seen by Provider: 06/25/22 10:04 History of Present Illness Provider Complaint: Cough, headache, wheezing X 2 days. , daughters had COVID19 last week. History of STEMI, COPD, ARDS. Onset (ago): day(s) Location: chest Relieving factors: none Exacerbating factors: none Treatments prior to arrival: none Related Data Home Medications Medication Instructions Recorded Confirmed sertraline 50 mg tablet 50 mg PO DAILY Anxiety 06/11/21 06/25/22 [id number] 10 ml PO Q6H Cough/cold 09/24/21 09/24/21 2 mg-30 mg-10 mg/5 mL oral syrup dexamethasone 6 mg tablet 6 mg PO DIRECTED covid 09/24/21 09/24/21 Previous Rx's Medication Instructions Recorded albuterol sulfate 90 mcg/actuation 2 inh inhalation Q4-6H PRN 06/25/22 aerosol inhaler shortness of breath or wheezing #8.5 grams dextromethorphan-guaifenesin ER 60 1 tab PO DAILY #20 tabs 06/25/22 mg-1,200 mg tab,extend release,12hr (Mucinex DM) doxycycline monohydrate 100 mg 100 mg PO BID #20 tabs 06/25/22 tablet prednisone 20 mg tablet 20 mg PO BID #10 tabs 06/25/22 Allergies Allergy/AdvReac Type Severity Reaction Status Date / Time Penicillins [PENICILLINS] Allergy Mild Verified 06/25/22 10:07 [facility] Social History (Updated 06/25/22 @ 10:07 by Arnaldo Parrish RN) Smoking Status: Current some day smoker tobacco type: smokeless tobacco second hand exposure: No alcohol intake: never substance use type: denies use current occupational status: employed household members: spouse and children housing: house current occupation: [employer] caffeine: No ROS Obtained: Yes All systems reviewed & no additional complaints except as documented Constitutional Constitutional: Reports body ache, Reports chills and Reports headache(s) ENT Ears, Nose, Mouth, and Throat: Reports headache(s) and Reports nasal discharge Cardiovascular Cardiovascular: Reports dyspnea Respiratory Respiratory: Reports cough and Reports dyspnea Neurologic Neurologic: Reports headache(s) Physical Exam General General appearance: alert and in no apparent distress Head Head exam: atraumatic, normocephalic and normal inspection Eye Eye exam: Present normal appearance, PERRL and EOMI ENT ENT exam: Present normal exam, normal oropharynx, mucous membranes moist, TM's nor
[2022-06-25 10:43] VITALS: BP 115/70; PULSE 72; RESP 16; TEMP 36.7
== END 2022-06-25 10:44 | disposition home or self-care (01) ==
PROVIDERS: Emergency Provider Physician Assistant; PCP Nurse Practitioner Family
DX: U07.1 COVID-19 (principal); Z87.09 Personal history of other diseases of the respiratory system; Z86.79 Personal history of other diseases of the circulatory system; Z88.0 Allergy status to penicillin; Z72.0 Tobacco use
CPT/HCPCS: 99212; C9803; G0463; U0003; U0005

== ENCOUNTER 2024-03-13 14:54 | Outpatient (CLI) | payer OTHER, SELFPAY ==
[2024-03-13 15:42] LABS: Alanine Aminotransferase 27 U/L (12-78); Albumin Level 4.3 g/dl (3.5-5.0); Albumin/Globulin Ratio 1.7 (1.1-1.8); Alkaline Phosphatase 109 U/L (38-126); Anion Gap 14.3 mEq/L (5-15); Aspartate Amino Transferase 36 U/L (17-59); Bilirubin,Total 0.8 mg/dl (0.2-1.3); Blood Urea Nitrogen 18 mg/dl (9-20); Carbon Dioxide 23 mmol/L (22.0-30.0); Chloride 104 mmol/L (98-107); Chol/HDL Ratio 3.2 (1-3.5); Cholesterol 204 mg/dl (140-200); Estimated Glomerular Filt Rate 103 ml/min (>60); GFR (African American) 125 ML/MIN (>60); Globulin 2.6 g/dL (1.3-3.2); Glucose 86 mg/dl (74-100); HDL Cholesterol 63 mg/dl (40-60); Potassium 4.3 mmoL/L (3.5-5.1); Sodium 137 mmol/L (136-145); Total Protein,Serum 6.9 g/dl (6.3-8.2); Triglycerides 83 mg/dl (30-150); VLDL Cholesterol 17 mg/dL (0-40)
[2024-03-13 15:53] LABS: Direct LDL Cholesterol 107.75 mg/dL (100-129)
[2024-03-13 16:03] LABS: 25-OH Vitamin D, Total 37.8 ng/mL (30-100)
[2024-03-13 16:15] LABS: Prostate Specific Ag Screen 1.1 ng/ml (0.0-4.0); Thyroid Stimulating Hormone 1.83 uIU/mL (0.465-4.68)
[2024-03-13 16:34] LABS: Vitamin B12 323 pg/mL (239-931)
[2024-03-13 17:30] LABS: Hemoglobin A1C 5.7 % (4.0-6.0)
[2024-03-13 18:35] LABS: Ferritin 123 ng/ml (17.9-464)
[2024-03-15 13:04] LABS: Testosterone,Total 366 ng/dL (264-916)
== END 2024-03-13 23:59 | disposition home or self-care (01) ==
LOC: LAB.DROPOF 14:55
PROVIDERS: PCP Nurse Practitioner Family; Visit Provider Nurse Practitioner Family
DX: Z00.00 Encounter for general adult medical examination without abnormal findings (principal); Z76.89 Persons encountering health services in other specified circumstances; Z13.0 Encounter for screening for diseases of the blood and blood-forming organs and certain disorders involving the immune mechanism; Z79.899 Other long term (current) drug therapy; F41.9 Anxiety disorder, unspecified
CPT/HCPCS: 80053; 80061; 82306; 82607; 82728; 83036; 83735; 84403; 84439; 84443; G0103

== ENCOUNTER 2025-03-11 10:34 | Outpatient (CLI) | payer OTHER, SELFPAY ==
[2025-03-11 14:28] LABS: Eosinophils # 0.1 Kmm3 (0.0-0.4); Eosinophils % 1.9 % (0.1-12.0); Hemoglobin 11.7 g/dL (14.1-18.0); Immature Granulocytes # 0.02 10^3uL; Immature Granulocytes % 0.6 %; Lymphocytes % 63.3 % (10-50); Mean Corpuscular HGB Conc 35.5 g/dL (31.8-35.4); Mean Corpuscular Hemoglobin 36.4 pg (27.0-31.2); Mean Corpuscular Volume 102.8 fl (80-94); Mean Platelet Volume 9.9 fl (7.4-10.4); Monocytes # 0.1 K/mm3 (0.1-1.0); Monocytes % 4.2 % (1.7-9.3); Neutrophils # 0.9 K/mm3 (1.8-7.8); Nucleated Red Blood Cells # 0 10^3/uL; Nucleated Red Blood Cells % 0 %; Platelet Count 93 K/mm3 (142-424); Red Blood Count 3.21 M/mm3 (4.60-6.20); Red Cell Distribution Width 14.6 % (11.5-17.5); Red Cell Distribution Width-SD 54.1 fL; White Blood Count 3.1 K/mm3 (4.8-10.8)
[2025-03-11 14:34] LABS: MANUAL DIFFERENTIAL MANUAL DIFFERENTIAL (MANUAL DIFF)
[2025-03-11 14:48] LABS: Albumin Level 4.7 g/dl (3.5-5.0); Anisocytosis 1+; Chloride 107 mmol/L (98-107); Eosinophils % 3 % (0-3); Lymphocytes % 51 % (10-50); Macrocytosis 1+; Monocytes % 4 % (2-9); Neutrophils % 42 % (42-76); Ovalocytes 1+; Platelet Estimate Moderate Decrease; Potassium 4.5 mmoL/L (3.5-5.1); Sodium 137 mmol/L (136-145); Total Cells Counted 100
[2025-03-11 14:51] LABS: Alanine Aminotransferase 29 U/L (12-78); Alkaline Phosphatase 88 U/L (38-126); Anion Gap 10.5 mEq/L (5-15); Aspartate Amino Transferase 41 U/L (17-59); Blood Urea Nitrogen 15 mg/dl (9-20); Calcium 9.2 mg/dl (8.4-10.2); Carbon Dioxide 24 mmol/L (22.0-30.0); Cholesterol 226 mg/dl (140-200); Estimated Glomerular Filt Rate 90 ml/min (>60); GFR (African American) 109 ML/MIN (>60); Globulin 2.4 g/dL (1.3-3.2); Glucose 94 mg/dl (74-100); Total Protein,Serum 7.1 g/dl (6.3-8.2); Triglycerides 65 mg/dl (30-150); VLDL Cholesterol 13 mg/dL (0-40)
[2025-03-11 14:52] LABS: Chol/HDL Ratio 3.5 (1-3.5); HDL Cholesterol 64 mg/dl (40-60)
[2025-03-11 14:58] LABS: C-Reactive Protein 4.6 mg/L (0-4)
[2025-03-11 15:03] LABS: Direct LDL Cholesterol 111.92 mg/dL (100-129)
[2025-03-11 15:09] LABS: Hemoglobin A1C 5.5 % (4.0-6.0)
[2025-03-11 15:26] LABS: Ferritin 175 ng/ml (17.9-464)
[2025-03-11 15:40] LABS: Vitamin B12 779 pg/mL (239-931)
[2025-03-14 09:02] LABS: Peripheral Smear Review Scanned Result
== END 2025-03-11 23:59 | disposition home or self-care (01) ==
LOC: LAB.DROPOF 03-13 10:34
PROVIDERS: PCP Nurse Practitioner Family; Visit Provider Nurse Practitioner Family
DX: D50.9 Iron deficiency anemia, unspecified (principal); D72.819 Decreased white blood cell count, unspecified; R63.5 Abnormal weight gain; Z13.0 Encounter for screening for diseases of the blood and blood-forming organs and certain disorders involving the immune mechanism; Z13.1 Encounter for screening for diabetes mellitus; Z13.220 Encounter for screening for lipoid disorders; Z68.36 Body mass index [BMI] 36.0-36.9, adult
CPT/HCPCS: 80053; 80061; 82607; 82728; 83036; 83735; 84402; 84403; 85007; 85025; 86140

== ENCOUNTER 2025-04-03 10:06 | Outpatient (CLI) | payer OTHER, SELFPAY ==
--- NOTE | 2025-04-03 10:15 | PC.NURSE ---
1015-collected labs via venipuncture stick in left ac with butterfly needle; pt to d/c home.
[2025-04-03 10:31] LABS: Basophils % 0.8 % (0.1-2.0); Eosinophils # 0.1 Kmm3 (0.0-0.4); Hematocrit 31.4 % (42.0-52.0); Immature Granulocytes # 0.01 10^3uL; Immature Granulocytes % 0.4 %; Lymphocytes # 1.5 K/mm3 (0.7-4.5); Lymphocytes % 57.6 % (10-50); Mean Corpuscular Hemoglobin 34.9 pg (27.0-31.2); Mean Corpuscular Volume 99.7 fl (80-94); Mean Platelet Volume 10.2 fl (7.4-10.4); Monocytes # 0.1 K/mm3 (0.1-1.0); Monocytes % 5.1 % (1.7-9.3); Neutrophils # 0.9 K/mm3 (1.8-7.8); Neutrophils % 34.1 % (37.0-80.0); Nucleated Red Blood Cells # 0 10^3/uL; Nucleated Red Blood Cells % 0 %; Platelet Count 83 K/mm3 (142-424); Red Blood Count 3.15 M/mm3 (4.60-6.20); Red Cell Distribution Width 14.8 % (11.5-17.5); Red Cell Distribution Width-SD 53.4 fL; Reticulocyte % (Auto) 2.2 % (0.9-3.2); White Blood Count 2.6 K/mm3 (4.8-10.8)
[2025-04-03 10:42] LABS: MANUAL DIFFERENTIAL MANUAL DIFFERENTIAL (MANUAL DIFF)
[2025-04-03 10:51] LABS: Lymphocytes % 57 % (10-50); Monocytes % 4 % (2-9); Neutrophils % 39 % (42-76); RBC Morphology Normal; Total Cells Counted 100
[2025-04-03 10:55] LABS: Platelet Estimate Moderate Decrease
[2025-04-03 11:07] LABS: Iron 148 ug/dL (49-181)
[2025-04-03 11:16] LABS: Total Iron Binding Capacity 310 ug/dL (261-462)
[2025-04-03 12:09] LABS: Lactate Dehydrogenase 227 U/L (313-618)
[2025-04-03 12:26] LABS: Folate 8.42 ng/mL
[2025-04-04 08:18] LABS: Haptoglobin <10 mg/dL (23-355)
== END 2025-04-03 10:20 | disposition home or self-care (01) ==
LOC: LAB 10:07 → INF 10:10
PROVIDERS: PCP Nurse Practitioner Family; Visit Provider Internal Medicine Medical Oncology
DX: D69.6 Thrombocytopenia, unspecified (principal)
CPT/HCPCS: 36415; 82746; 83010; 83540; 83550; 83615; 85007; 85025; 85027; 85044

== ENCOUNTER 2025-04-11 09:05 | Outpatient (CLI) | payer OTHER, SELFPAY ==
--- NOTE | 2025-04-11 09:09 | CT_ITS ---
FINAL REPORT TECHNIQUE: After the administration of oral and intravenous contrast, axial images were obtained through the abdomen and pelvis by computed tomography. The study was performed with techniques to keep radiation dose as low as reasonably achievable, (ALARA). Individual dose reduction techniques using automated exposure control or adjustment of mA and/or kV according to the patient's size were employed. CLINICAL HISTORY: splenomegaly FINDINGS: Abdomen: The lung bases are clear. There is mild fatty infiltration of the liver. The gallbladder is absent. The spleen is enlarged measuring up to 14 cm in craniocaudal dimension. The pancreas and adrenals are unremarkable. There is a large complex cyst in the left kidney measuring 12.2 x 8.9 cm. The aorta is normal in caliber. There is no free fluid or adenopathy. Pelvis: The appendix is enlarged but air-filled. No surrounding inflammation is identified. The urinary bladder is unremarkable. There is no free fluid or adenopathy. IMPRESSION: Mild splenomegaly. Large septated cystic structure in the left kidney. Reviewed, Interpreted and Dictated by Phil Anderson MD Transcribed by Kellie Dang Authenticated and . [facility]
[2025-04-11] MEDS: IOPAMIDOL-370 (76%);100ML BOTTLE 75 ML IV (09:30)
[2025-04-11] MEDS: SODIUM CHLORIDE 0.9% 10ML SYR (RAD ONLY) 10 ML IV (09:30)
== END 2025-04-11 23:59 | disposition home or self-care (01) ==
LOC: RAD 09:05
PROVIDERS: PCP Nurse Practitioner Family; Visit Provider Internal Medicine Medical Oncology
DX: D61.818 Other pancytopenia (principal); D69.6 Thrombocytopenia, unspecified; D72.819 Decreased white blood cell count, unspecified; R16.1 Splenomegaly, not elsewhere classified; N28.1 Cyst of kidney, acquired; K38.0 Hyperplasia of appendix
CPT/HCPCS: 74177; Q9967

== ENCOUNTER 2025-04-15 07:29 | Outpatient (CLI) | payer OTHER, SELFPAY ==
[2025-04-15 07:48] VITALS: BMI 34.4
[2025-04-15 07:50] VITALS: BP 142/78; PULSE 66; RESP 16; TEMP 36.6; O2SAT 98
[2025-04-15 08:12] LABS: INR 0.97 (0.9-1.1); Prothrombin Time 10.8 seconds (10.1-12.5)
--- NOTE | 2025-04-15 08:30 | CT_ITS ---
FINAL REPORT CLINICAL HISTORY: .BONE MARROW BIOPSY FOR SPLENOMEGALY. FINDINGS: CT-GUIDED BONE MARROW BIOPSY HISTORY: Splenomegaly, abnormal labs. ATTENDING PHYSICIAN: Dr. Anderson PHYSICIAN BROOM MACHINE OPERATOR: Shania Skaggs PA-C CONSCIOUS SEDATION: 2 mg of IV Versed and 100 mcg of fentanyl were administered. Continuous vital sign monitoring was used. Nursing staff was present during the sedation process. Overall sedation time was 30 minutes. TECHNIQUE: Informed consent was obtained from the patient. Timeout procedure was performed prior to beginning. The left lower back was prepped in a routine sterile fashion and locally anesthetized with 1% lidocaine. Using CT guidance a bone biopsy needle was directed toward posterior left iliac bone. The needle was positioned within the outer periphery of the bone. approximately 12 mL of bone marrow aspirate was obtained. Following this, an approximate 1 cm core biopsy was performed. Procedure was well tolerated . CONCLUSION: 1. Technically successful CT guided bone marrow biopsy as above. Reviewed, Interpreted and Dictated by Phil Anderson MD Transcribed by Shania Skaggs PA-C Authenticated and [facility]
[2025-04-15] MEDS: LIDOCAINE 1% 20ML MDV 20 ML SUBCUT (09:31)
== END 2025-04-15 23:59 | disposition home or self-care (01) ==
LOC: RAD 07:30
PROVIDERS: PCP Nurse Practitioner Family; Visit Provider Internal Medicine Medical Oncology
DX: R16.1 Splenomegaly, not elsewhere classified (principal)
CPT/HCPCS: 38221; 77012; 85610; J2003; J2250; J3010

== ENCOUNTER 2025-05-12 08:20 | Outpatient (CLI) | payer OTHER, SELFPAY ==
[2025-05-12] VITALS (9 sets, daily range): BP systolic 110–127; BP diastolic 64–76; PULSE 57–67; RESP 18; TEMP 36.7; O2SAT 99
[2025-05-12 08:35] LABS: Hematocrit 27.4 % (42.0-52.0); Hemoglobin 9.3 g/dL (14.1-18.0); Immature Granulocytes % 0 %; Mean Corpuscular HGB Conc 33.9 g/dL (31.8-35.4); Mean Corpuscular Hemoglobin 33.7 pg (27.0-31.2); Mean Corpuscular Volume 99.3 fl (80-94); Nucleated Red Blood Cells % 0.8 %; Platelet Count 75 K/mm3 (142-424); Red Blood Count 2.76 M/mm3 (4.60-6.20); Red Cell Distribution Width-SD 53.7 fL; White Blood Count 2.4 K/mm3 (4.8-10.8)
[2025-05-12 08:47] LABS: Alanine Aminotransferase 34 U/L (12-78); Albumin Level 4.2 g/dl (3.5-5.0); Albumin/Globulin Ratio 1.6 (1.1-1.8); Alkaline Phosphatase 87 U/L (38-126); Anion Gap 15.0 mEq/L (5-15); Aspartate Amino Transferase 39 U/L (17-59); Bilirubin,Total 0.9 mg/dl (0.2-1.3); Blood Urea Nitrogen 16 mg/dl (9-20); Calcium 9.1 mg/dl (8.4-10.2); Carbon Dioxide 24 mmol/L (22.0-30.0); Chloride 103 mmol/L (98-107); Creatinine,Serum 0.80 mg/dl (0.66-1.25); Estimated Glomerular Filt Rate 103 ml/min (>60); GFR (African American) 124 ML/MIN (>60); Globulin 2.6 g/dL (1.3-3.2); Glucose 119 mg/dl (74-100); Potassium 4.0 mmoL/L (3.5-5.1); Sodium 138 mmol/L (136-145); Total Protein,Serum 6.8 g/dl (6.3-8.2); Uric Acid 3.2 mg/dl (3.5-8.5)
[2025-05-12 09:02] LABS: Total Cells Counted 100
[2025-05-12 09:03] LABS: Anisocytosis 1+; Macrocytosis 1+
[2025-05-12] MEDS: CLADRIBINE IV (09:28)
[2025-05-12] MEDS: SODIUM CHLORIDE 0.9% IV (09:28)
== END 2025-05-12 11:45 | disposition home or self-care (01) ==
LOC: INF 08:21
PROVIDERS: PCP Nurse Practitioner Family; Visit Provider Internal Medicine Medical Oncology
DX: C91.40 Hairy cell leukemia not having achieved remission (principal)
CPT/HCPCS: 80053; 83615; 84550; 85007; 85025; 85027; 96413; 96415; J7040; J9065

== ENCOUNTER 2025-05-13 08:17 | Outpatient (CLI) | payer OTHER, SELFPAY ==
[2025-05-13] VITALS (10 sets, daily range): BP systolic 101–123; BP diastolic 54–75; PULSE 56–69; RESP 18; O2SAT 99–100
[2025-05-13] MEDS: CLADRIBINE IV (08:41)
[2025-05-13] MEDS: SODIUM CHLORIDE 0.9% IV (08:41)
== END 2025-05-13 10:56 | disposition home or self-care (01) ==
LOC: INF 08:19
PROVIDERS: PCP Nurse Practitioner Family; Visit Provider Internal Medicine Medical Oncology
DX: C91.40 Hairy cell leukemia not having achieved remission (principal)
CPT/HCPCS: 96413; 96415; J7040; J9065

== ENCOUNTER 2025-05-14 08:22 | Outpatient (CLI) | payer OTHER, SELFPAY ==
[2025-05-14] MEDS: SODIUM CHLORIDE 0.9% IV (08:41)
[2025-05-14] MEDS: CLADRIBINE IV (08:41)
[2025-05-14 08:46] VITALS: BP 119/70; PULSE 74; RESP 18; O2SAT 97
[2025-05-14 09:30] VITALS: BP 114/70; PULSE 62; RESP 18; O2SAT 99
[2025-05-14 10:00] VITALS: BP 124/67; PULSE 64; RESP 18; O2SAT 99
[2025-05-14 10:30] VITALS: BP 116/68; PULSE 64; RESP 18; O2SAT 99
[2025-05-14 10:55] VITALS: BP 131/67; PULSE 65; RESP 18; O2SAT 99
== END 2025-05-14 10:55 | disposition home or self-care (01) ==
LOC: INF 08:23
PROVIDERS: PCP Nurse Practitioner Family; Visit Provider Internal Medicine Medical Oncology
DX: C91.40 Hairy cell leukemia not having achieved remission (principal)
CPT/HCPCS: 96413; 96415; J7040; J9065

== ENCOUNTER 2025-05-15 08:17 | Outpatient (CLI) | payer OTHER, SELFPAY ==
[2025-05-15 08:37] LABS: Hematocrit 28.7 % (42.0-52.0); Hemoglobin 9.9 g/dL (14.1-18.0); Immature Granulocytes % 0 %; Mean Corpuscular HGB Conc 34.5 g/dL (31.8-35.4); Mean Corpuscular Hemoglobin 34.1 pg (27.0-31.2); Mean Corpuscular Volume 99.0 fl (80-94); Nucleated Red Blood Cells % 0 %; Platelet Count 73 K/mm3 (142-424); Red Blood Count 2.90 M/mm3 (4.60-6.20); Red Cell Distribution Width-SD 53.0 fL
[2025-05-15 08:46] LABS: Alanine Aminotransferase 45 U/L (12-78); Albumin Level 4.6 g/dl (3.5-5.0); Albumin/Globulin Ratio 1.6 (1.1-1.8); Alkaline Phosphatase 93 U/L (38-126); Anion Gap 18.3 mEq/L (5-15); Aspartate Amino Transferase 58 U/L (17-59); Bilirubin,Total 1.4 mg/dl (0.2-1.3); Blood Urea Nitrogen 14 mg/dl (9-20); Calcium 9.6 mg/dl (8.4-10.2); Carbon Dioxide 19 mmol/L (22.0-30.0); Chloride 101 mmol/L (98-107); Creatinine,Serum 1.10 mg/dl (0.66-1.25); Estimated Glomerular Filt Rate 71 ml/min (>60); GFR (African American) 86 ML/MIN (>60); Globulin 2.9 g/dL (1.3-3.2); Glucose 128 mg/dl (74-100); Magnesium 1.8 mg/dl (1.6-2.3); Potassium 4.3 mmoL/L (3.5-5.1); Sodium 134 mmol/L (136-145); Total Protein,Serum 7.5 g/dl (6.3-8.2)
[2025-05-15 08:49] LABS: White Blood Count 1.7 K/mm3 (4.8-10.8)
[2025-05-15 09:02] LABS: Total Cells Counted 50
[2025-05-15 09:04] LABS: Ovalocytes 1+
[2025-05-15] MEDS: SODIUM CHLORIDE 0.9% IV (09:27)
[2025-05-15] MEDS: CLADRIBINE IV (09:27)
[2025-05-15 09:40] VITALS: BP 139/71; PULSE 81; RESP 18; O2SAT 98
[2025-05-15] MEDS: ACETAMINOPHEN 325MG TAB 650 MG (09:45)
[2025-05-15] MEDS: FAMOTIDINE 20MG TABLET 20 MG (09:45)
[2025-05-15 10:10] VITALS: BP 128/66; PULSE 80; RESP 18; O2SAT 98
[2025-05-15 10:40] VITALS: BP 112/60; PULSE 75; RESP 18; O2SAT 98
[2025-05-15 11:10] VITALS: BP 134/54; PULSE 77; RESP 18; O2SAT 98
[2025-05-15 11:55] VITALS: BP 132/64; PULSE 73; RESP 18; O2SAT 98
== END 2025-05-15 11:55 | disposition home or self-care (01) ==
LOC: INF 08:17
PROVIDERS: PCP Nurse Practitioner Family; Visit Provider Internal Medicine Medical Oncology
DX: C91.40 Hairy cell leukemia not having achieved remission (principal)
CPT/HCPCS: 80053; 83735; 85007; 85025; 85027; 96413; 96415; J7040; J9065

== ENCOUNTER 2025-05-16 08:11 | Outpatient (CLI) | payer OTHER, SELFPAY ==
[2025-05-16] MEDS: SODIUM CHLORIDE 0.9% IV (08:35)
[2025-05-16] MEDS: CLADRIBINE IV (08:35)
[2025-05-16 08:40] VITALS: BP 133/87; PULSE 80; RESP 18; O2SAT 97
[2025-05-16 09:10] VITALS: BP 132/68; PULSE 70; RESP 18; O2SAT 97
[2025-05-16 09:40] VITALS: BP 132/71; PULSE 64; RESP 18; O2SAT 97
[2025-05-16 10:10] VITALS: BP 130/68; PULSE 68; RESP 18; O2SAT 97
[2025-05-16 10:45] VITALS: BP 139/76; PULSE 74; RESP 18; O2SAT 98
== END 2025-05-16 10:45 | disposition home or self-care (01) ==
LOC: INF 08:12
PROVIDERS: PCP Nurse Practitioner Family; Visit Provider Internal Medicine Medical Oncology
DX: C91.40 Hairy cell leukemia not having achieved remission (principal)
CPT/HCPCS: 96413; 96415; J7040; J9065

== ENCOUNTER 2025-05-19 12:34 | Inpatient (IN) | payer OTHER, SELFPAY ==
[2025-05-19] VITALS (7 sets, daily range): BP systolic 125–149; BP diastolic 68–77; PULSE 79–104; RESP 18–24; TEMP 36.9–37.3; O2SAT 96–99; BMI 34.5
[2025-05-19 11:36] LABS: Albumin Level 3.8 g/dl (3.5-5.0); Chloride 100 mmol/L (98-107); Potassium 3.5 mmoL/L (3.5-5.1); Sodium 128 mmol/L (136-145)
[2025-05-19 11:39] LABS: Alanine Aminotransferase 112 U/L (12-78); Albumin/Globulin Ratio 1.2 (1.1-1.8); Alkaline Phosphatase 213 U/L (38-126); Anion Gap 10.5 mEq/L (5-15); Aspartate Amino Transferase 82 U/L (17-59); Bilirubin,Total 5.5 mg/dl (0.2-1.3); Blood Urea Nitrogen 15 mg/dl (9-20); Carbon Dioxide 21 mmol/L (22.0-30.0); Creatinine,Serum 0.70 mg/dl (0.66-1.25); Estimated Glomerular Filt Rate 120 ml/min (>60); GFR (African American) 145 ML/MIN (>60); Globulin 3.2 g/dL (1.3-3.2); Hematocrit 24.3 % (42.0-52.0); Hemoglobin 8.3 g/dL (14.1-18.0); Immature Granulocytes % 0 %; Mean Corpuscular HGB Conc 34.2 g/dL (31.8-35.4); Mean Corpuscular Hemoglobin 33.2 pg (27.0-31.2); Mean Corpuscular Volume 97.2 fl (80-94); Nucleated Red Blood Cells % 0 %; Red Blood Count 2.50 M/mm3 (4.60-6.20); Red Cell Distribution Width-SD 51.5 fL; Total Protein,Serum 7.0 g/dl (6.3-8.2)
[2025-05-19 11:40] LABS: Calcium 9.0 mg/dl (8.4-10.2); Glucose 132 mg/dl (74-100)
[2025-05-19] MEDS: 0.9 % SODIUM CHLORIDE 1000ML 1,000 ML 999 ML IV (11:40)
[2025-05-19] MEDS: DEXAMETHASONE 4MG/ML 1ML VIAL 8 MG IV (11:45)
[2025-05-19] MEDS: ONDANSETRON 4MG/2ML VIAL 8 MG IV (11:46)
[2025-05-19 11:58] LABS: Uric Acid 2.0 mg/dl (3.5-8.5)
[2025-05-19 12:05] LABS: Platelet Count 48 K/mm3 (142-424); White Blood Count 0.1 K/mm3 (4.8-10.8)
--- NOTE | 2025-05-19 12:42 | PC.NURSE ---
arrived by w/c from infusion
--- NOTE | 2025-05-19 12:43 | US_ITS ---
FINAL REPORT CLINICAL HISTORY: Transaminitis, started chemotherapy, nausea/vomiti FINDINGS: Sonographic images of the right upper quadrant were obtained. The pancreas is partially obscured.The liver has an unremarkable appearance. The gallbladder is absent. There is no evidence of biliary ductal dilatation.The common duct is normal. Limited images of the right kidney are unremarkable. IMPRESSION: Unremarkable right upper quadrant ultrasound. Reviewed, Interpreted and Dictated by Teresita Ojeda MD Transcribed by Anai Saavedra Authenticated and [facility]
--- NOTE | 2025-05-19 12:50 | PC.NURSE ---
1250-gave report to richar bustos rn
--- NOTE | 2025-05-19 14:05 | HMH.PHAINT1 ---
Pharmacy Intervention Comments: home medication list verified using list from outpatient pharmacy
[2025-05-19 14:17] LABS: Total Cells Counted 25
[2025-05-19 14:18] LABS: Ovalocytes 1+
[2025-05-19] MEDS: 0.9 % SODIUM CHLORIDE 1000ML 1,000 ML 100 ML IV (14:26)
[2025-05-19] MEDS: POTASSIUM CHLORIDE 20MEQ TAB 40 MEQ PO ×2 (16:32→19:55)
--- NOTE | 2025-05-19 17:35 | XR_ITS ---
PROCEDURE INFORMATION: Exam: XR Chest Exam date and time: 05/19/2025 6:13 PM Age: 49 years old Clinical indication: Other: Fever, neutropenic TECHNIQUE: Imaging protocol: Radiologic exam of the chest. Views: 1 view. COMPARISON: CT ANGIO CHEST PE PROTOCOL 09/24/2021 6:35 PM FINDINGS: Lungs: Unremarkable. No consolidation. Pleural spaces: Unremarkable. No pleural effusion. No pneumothorax. Heart/Mediastinum: Unremarkable. No cardiomegaly. Bones/joints: Unremarkable. IMPRESSION: No acute findings.
--- NOTE | 2025-05-19 17:44 | EXP.HP ---
History of Present Illness *Admission Date: 05/19/25 *Reason for visit:: Intractable nausea/vomiting *History of present illness: Jm Ramirez is a 49-year-old male with medical history significant for hairy cell leukemia (following closely with Dr. Reyes) who presents with 2 days onset of intractable nausea/vomiting. Patient received chemotherapy with cladribine for 5 days this past week and had been doing relatively well until he restarted his prophylactic antibiotics levofloxacin and Bactrim this past weekend. He states it is unclear whether he was chemo accosted or the antibiotics, but nonetheless he was not able to tolerate p.o. intake this past weekend. He came to infusion clinic today to get blood work which revealed transaminitis. I spoke with Dr. Reyes who recommended admission for close monitoring, IV fluids, and further evaluation of transaminitis. Of note, patient states he has been having fevers over the past few days of 102 point Fahrenheit. Denies chest pain, shortness of breath, abdominal pain. [facility] Disclaimer: The information contained in this section may have been updated after the patient was seen, as this information can be updated by other users. Medical History (Updated 05/19/25 @ 18:01 by Jaziel Doss MD) Splenomegaly No significant past medical history Surgical History History of surgery on arm Hx of cholecystectomy Family History Other No significant family history Social History (Updated 05/19/25 @ 13:19 by Josselyn Ch RN) Smoking Status: Current some day smoker tobacco type: smokeless tobacco second hand exposure: No alcohol intake: never substance use type: denies use current occupational status: employed Travel in the last 8 weeks?: None household members: spouse and children housing: house current occupation: [employer] caffeine: No Have you lived/traveled outside [place] in past 30 days?: No Contact w/someone who lives/traveled outside US past 30 days?: No Exposure to someone with infectious disease in past 14 days?: No Do you have a fever (greater than 100.4 F or 38 C)?: No Have you tested positive for COVID-19?: No Exposed to someone with COVID-19 in past 14 days?: No Do you have a sore throat?: No Do you have a cough?: No Do you have any weakness?: No Are you experiencing any nausea/vomitting?: No Do you have any diarrhea?: No Are you experiencing any unusual bleeding?: No Do you have any muscle aches/pain?: No Do you have any abdominal pain?: No Are you experiencing loss of taste or smell?: No Other Medical History Have you received the Flu Vaccine for this season: No Have you received the Pneumonia Vaccine: No Meds Home Medications and Allergies Home Medications ?Medication ?Instructions ?Recorded ?Confirmed ?Type sertraline 50 mg tablet 50 mg PO DAILY Anxiety 90 days #90 03/07/25 05/19/25 Rx tabs acyclovir 800 mg tablet 800 mg PO BID Infection/chemo #60 04/30/25 05/19/25 Rx tabs fluconazole 200 mg tablet 400 mg (2 x 200 mg) PO DAILY 04/30/25 05/19/25 Rx Infection/chemo #60 tabs levofloxacin 500 mg tablet 500 mg PO DAILY infection/ chemo 04/30/25 05/19/25 Rx #30 tabs sulfamethoxazole 800 1 tab PO BID infection/chemo #60 04/30/25 05/19/25 Rx mg-trimethoprim 160 mg tablet tabs (Bactrim DS) allopurinol 300 mg tablet 300 mg PO DAILY 05/19/25 05/19/25 History cetirizine 10 mg tablet 10 mg PO DAILY 05/19/25 05/19/25 History meloxicam 15 mg tablet 15 mg PO DAILY 05/19/25 05/19/25 History New Prescriptions to Start Prescriptions: Allergies Allergy/AdvReac Type Severity Reaction Status Date / Time Penicillins (PENICILLINS) Allergy Mild Other Verified 04/29/25 11:20 Exam Data for Last 24 hours Vital signs and Labs for Last 24 Hours: Temp Pulse Resp BP Pulse Ox O2 Del Method 98.7 F 79 24 125/77 97 Room Air 05/19/25 16:00 05/19/25 16:00 05/19/25 16:00 05/19/25 16:00 05/19/25 16:00 05/19/25 16:18 Laboratory Results - last 24 hr 05/19/25 11:20: WBC 0.1 L*, RBC 2.50 L, Hgb 8.3 L, Hct 24.3 L, MCV 97.2 H, MCH 33.2 H, MCHC 34.2, RDW 14.6, Plt Count 48 L*, MPV 10.0, Neut % (Auto) 36.3 L, Lymph % (Auto) 45.5, [place] % (Auto) 9.1, Eos % (Auto) 9.1, Baso % (Auto) 0.0 L, Neut # (Auto) 0.0 L*, Lymph # (Auto) 0.1 L, [place] # (Auto) 0.0 L, Eos # (Auto) 0.0, Baso # (Auto) 0.0, Total Counted 25, Neutrophils % (Manual) 52, Lymphocytes % (Manual) 40, Eosinophils % (Manual) 8 H, Platelet Estimate Moderate decrease, Ovalocytes 1+, Sodium 128 L, Potassium 3.5, Chloride 100, Carbon Dioxide 21 L, Anion Gap 10.5, BUN 15, Creatinine 0.70, Estimated GFR 120, Est GFR ( Amer) 145, Glucose 132 H, Uric Acid 2.0 L, Calcium 9.0, Total Bilirubin 5.5 H, AST 82 H, ALT 112 H, Alkaline Phosphatase 213 H, Lactate Dehydrogenase 323, Total Protein 7.0, Albumin 3.8, Globulin 3.2, Albumin/Globulin Ratio 1.2 I & O for Last 24 hours: Intake & Output 05/16/25 05/17/25 05/18/25 05/19/25 23:59 23:59 23:59 23:59 Intake Total 1000 / 1000 Balance 1000 / 1000 Weight 106.169 kg Constitutional Constitutional: no acute distress *Routine HEENT Exam Head: Present normocephalic Eye: Present EOMI and PERRL ENT: Present mucous membranes moist *Routine Neck Exam Neck: Present supple; Absent lymphadenopathy *Routine Respiratory Exam Respiratory: Present CTA bilaterally *Routine Cardiovascular Exam Cardiovascular: Present RRR *Routine Abdominal Exam Abdominal: Present soft and normoactive bowel sounds; Absent tenderness *Routine Rectal Exam Rectal:: deferred *Routine Genitalia Exam Genitalia:: deferred *Routine Extremities Exam Extremities: Absent cyanosis, clubbing or edema *Routine Skin Exam Skin: Present warm; Absent rash *Routine Neurological Exam Neurological: Present alert and oriented X3 Assessment and Plan *Assessment and plan (1) Pancytopenia: Status: Acute Category: Medical Code(s): D61.818 - Other pancytopenia (2) Thrombocytopenia: Status: Acute Category: Medical Code(s): D69.6 - Thrombocytopenia, unspecified (3) Transaminitis: Status: Acute Category: Medical Code(s): R74.01 - Elevation of levels of liver transaminase levels (4) Neutropenic fever: Status: Acute Category: Medical Code(s): D70.9 - Neutropenia, unspecified; R50.81 - Fever presenting with conditions classified elsewhere Plan Jm Ramirez is a 49-year-old male with medical history significant for hairy cell leukemia (following closely with Dr. Reyes) who presents with 2 days onset of intractable nausea/vomiting. Patient received chemotherapy with cladribine for 5 days this past week and had been doing relatively well until he restarted his prophylactic antibiotics levofloxacin and Bactrim this past weekend. He states it is unclear whether he was chemo accosted or the antibiotics, but nonetheless he was not able to tolerate p.o. intake this past weekend. He came to infusion clinic today to get blood work which revealed transaminitis. I spoke with Dr. Reyes who recommended admission for close monitoring, IV fluids, and further evaluation of transaminitis. Of note, patient states he has been having fevers over the past few days of 102 point Fahrenheit. Denies chest pain, shortness of breath, abdominal pain. #Neutropenic fever #Hairy cell leukemia #Pancytopenia #Chemotherapy ? Recently started on 5 days of cladribine by Dr. Reyes this past week, has had intractable nausea/vomiting since. ? Endorses fevers of 102 Fahrenheit at home over the past 2 days, but no focal symptoms. Fevers may be sequela of chemotherapy itself, spoke with Dr. Reyes who agreed. ? WBC 0.1, ANC nearly undetectable on CBC with differential. Platelets 48, hemoglobin 8.3. No signs of bleeding. ? Follow-up CXR, UA, hepatitis panel, respiratory panel, blood cultures. ? Started empiric IV vancomycin, cefepime. Monitor for toxicity. ? Continue allopurinol 300 mg. #Intractable nausea/vomiting #Transaminitis ? Improved with IV fluid resuscitation. Continue IV NS at 100 mL/h. ? AST/ALT/ALP/bilirubin 82/112/213/5.5. Follow-up direct bilirubin. ? RUQ ultrasound unremarkable. ? Follow-up hepatitis panel. ? Continue IV NS at 100 L/h. Full code DVT prophylaxis: Patient ambulatory, has thrombocytopenia
[2025-05-19 18:17] LABS: Microscopic, Urine URINE MICROSCOPIC (MICROSCOPIC)
[2025-05-19 18:19] LABS: Adenovirus,PCR Not Detected (NotDetected); Chlamydophila Pneumoniae, PCR Not Detected (NotDetected); Coronavirus 19, PCR Not Detected (NotDetected); Coronovirus HKU1,PCR Not Detected (NotDetected); Influenza A, PCR Not Detected (NotDetected); Influenza AH1, 2009 Not Detected (NotDetected); Influenza AH1, PCR Not Detected (NotDetected); Influenza AH3,PCR Not Detected (NotDetected); Influenza B, PCR Not Detected (NotDetected); Mycoplasma Pneumoniae, PCR Not Detected (NotDetected); Parainfluenza 1, PCR Not Detected (NotDetected); Parainfluenza 2, PCR Not Detected (NotDetected); Parainfluenza 3, PCR Not Detected (NotDetected); Parainfluenza 4, PCR Not Detected (NotDetected)
[2025-05-19 18:29] LABS: Bilirubin,Direct 3.1 mg/dl (0.0-0.4)
[2025-05-19 18:43] LABS: Bilirubin,Urine Negative (Negative); Color,Urine YELLOW (Yellow); Glucose,Urine (UA) 3+ (Negative); Ketones,Urine Negative (Negative); Leukocyte Esterase,Urine Negative (Negative); PH,Urine 6.0 (5.0-8.5); Protein,Urine Negative (Negative); Specific Gravity, Urine <= 1.005 (1.005-1.030); Urobilinogen,Urine 2.0 EU/dl (0.2)
[2025-05-19 18:55] LABS: RBC,Urine Occasional #/hpf (0-3); WBC,Urine Occasional #/hpf (0-3)
[2025-05-19] MEDS: VANCOMYCIN CONSULT REQUEST 1 EACH NOTAPPLIC (19:56)
[2025-05-19] MEDS: VANCOMYCIN HCL 2,250 MG in 0.9 % SODIUM CHLORIDE 250 ML 125 MG IV (19:56)
[2025-05-20 00:28] VITALS: BP 162/76; PULSE 79; RESP 16; TEMP 36.9; O2SAT 95
[2025-05-20] MEDS: FAMOTIDINE 20MG TABLET 20 MG PO ×2 (00:28→20:01)
--- NOTE | 2025-05-20 02:19 | PC.NURSE ---
Pt AOx4, pleasant. Called in vanc consult at beginning of shift and gave one time dose at 1999. Pt has been afebrile this shift and continually denies pain. Called provider bc pt requested something to help him sleep and stated that he took benadryl and pepcid at home. Provider ordered those medications and they have been administered. Pt is currently resting in bed with eyes closed, respirations even and unlabored. Bed is low, locked, and call light is in reach.
[2025-05-20] MEDS: 0.9 % SODIUM CHLORIDE 1000ML 1,000 ML 100 ML IV (03:02)
[2025-05-20 04:00] VITALS: BP 133/71; PULSE 74; RESP 18; TEMP 36.9; O2SAT 94; BMI 35.8
[2025-05-20] MEDS: CEFEPIME HCL 2 GM in 0.9 % SODIUM CHLORIDE 100 ML IV ×2 (05:09→17:46)
[2025-05-20 07:13] LABS: Immature Granulocytes % 0 %; Mean Corpuscular HGB Conc 35.1 g/dL (31.8-35.4); Mean Corpuscular Hemoglobin 35.5 pg (27.0-31.2); Mean Corpuscular Volume 101.2 fl (80-94); Nucleated Red Blood Cells % 0 %; Platelet Count 63 K/mm3 (142-424); Red Blood Count 1.69 M/mm3 (4.60-6.20); Red Cell Distribution Width-SD 51.3 fL
[2025-05-20 07:23] LABS: Alanine Aminotransferase 118 U/L (12-78); Albumin Level 3.4 g/dl (3.5-5.0); Albumin/Globulin Ratio 1.2 (1.1-1.8); Alkaline Phosphatase 203 U/L (38-126); Anion Gap 9.6 mEq/L (5-15); Aspartate Amino Transferase 110 U/L (17-59); Bilirubin,Total 3.2 mg/dl (0.2-1.3); Blood Urea Nitrogen 13 mg/dl (9-20); Calcium 8.8 mg/dl (8.4-10.2); Carbon Dioxide 20 mmol/L (22.0-30.0); Chloride 108 mmol/L (98-107); Creatinine Clearance Estimated 198 mL/min (50-200); Creatinine,Serum 0.70 mg/dl (0.66-1.25); Estimated Glomerular Filt Rate 120 ml/min (>60); GFR (African American) 145 ML/MIN (>60); Globulin 2.9 g/dL (1.3-3.2); Glucose 155 mg/dl (74-100); Magnesium 2.0 mg/dl (1.6-2.3); Potassium 4.6 mmoL/L (3.5-5.1); Sodium 133 mmol/L (136-145); Total Protein,Serum 6.3 g/dl (6.3-8.2)
[2025-05-20 07:36] LABS: Hematocrit 17.1 % (42.0-52.0); White Blood Count 0.2 K/mm3 (4.8-10.8)
[2025-05-20 07:51] LABS: Bilirubin,Direct 1.7 mg/dl (0.0-0.4); Bilirubin,Indirect 1.5 mg/dL (0.0-0.9); Bilirubin,Total 3.2 mg/dl (0.2-1.3); Bilirubin,Unconjugated 1.6 mg/dL (0.0-1.1)
[2025-05-20 08:00] VITALS: BP 119/73; PULSE 76; RESP 16; TEMP 36.6; O2SAT 96
[2025-05-20] MEDS: ALLOPURINOL 300MG TABLET 300 MG PO (08:06)
[2025-05-20 08:13] LABS: Hemoglobin 6.0 g/dL (14.1-18.0)
--- NOTE | 2025-05-20 08:22 | EXP.PHA.CONS ---
Pharmacy Consult Date: 05/20/25 Time: 08:22 Referring provider: DR BENTON Reason for Consult:: VANCOMYCIN DOSING CONSULT Allergies Allergy/AdvReac Type Severity Reaction Status Date / Time Penicillins (PENICILLINS) Allergy Mild Other Verified 04/29/25 11:20 Home Medications ?Medication ?Instructions ?Recorded ?Confirmed ?Type sertraline 50 mg tablet 50 mg PO DAILY Anxiety 90 days #90 03/07/25 05/19/25 Rx tabs acyclovir 800 mg tablet 800 mg PO BID Infection/chemo #60 04/30/25 05/19/25 Rx tabs fluconazole 200 mg tablet 400 mg (2 x 200 mg) PO DAILY 04/30/25 05/19/25 Rx Infection/chemo #60 tabs levofloxacin 500 mg tablet 500 mg PO DAILY infection/ chemo 04/30/25 05/19/25 Rx #30 tabs sulfamethoxazole 800 1 tab PO BID infection/chemo #60 04/30/25 05/19/25 Rx mg-trimethoprim 160 mg tablet tabs (Bactrim DS) allopurinol 300 mg tablet 300 mg PO DAILY 05/19/25 05/19/25 History cetirizine 10 mg tablet 10 mg PO DAILY 05/19/25 05/19/25 History meloxicam 15 mg tablet 15 mg PO DAILY 05/19/25 05/19/25 History New Prescriptions to Start Prescriptions: Height: 1.75 m Weight: 109.633 kg Laboratory Results:: Laboratory Results - last 24 hr 05/19/25 11:20: WBC 0.1 L*, RBC 2.50 L, Hgb 8.3 L, Hct 24.3 L, MCV 97.2 H, MCH 33.2 H, MCHC 34.2, RDW 14.6, Plt Count 48 L*, MPV 10.0, Neut % (Auto) 36.3 L, Lymph % (Auto) 45.5, [place] % (Auto) 9.1, Eos % (Auto) 9.1, Baso % (Auto) 0.0 L, Neut # (Auto) 0.0 L*, Lymph # (Auto) 0.1 L, [place] # (Auto) 0.0 L, Eos # (Auto) 0.0, Baso # (Auto) 0.0, Total Counted 25, Neutrophils % (Manual) 52, Lymphocytes % (Manual) 40, Eosinophils % (Manual) 8 H, Platelet Estimate Moderate decrease, Ovalocytes 1+, Sodium 128 L, Potassium 3.5, Chloride 100, Carbon Dioxide 21 L, Anion Gap 10.5, BUN 15, Creatinine 0.70, Estimated GFR 120, Est GFR ( Amer) 145, Glucose 132 H, Uric Acid 2.0 L, Calcium 9.0, Total Bilirubin 5.5 H, AST 82 H, ALT 112 H, Alkaline Phosphatase 213 H, Lactate Dehydrogenase 323, Total Protein 7.0, Albumin 3.8, Globulin 3.2, Albumin/Globulin Ratio 1.2 05/19/25 17:35: Urine Color Yellow, Urine Appearance Clear, Urine pH 6.0, Ur Specific Wright <= 1.005, Urine Protein Negative, Urine Glucose (UA) 3+, Urine Ketones Negative, Urine Blood Negative, Urine Nitrate Negative, Urine Bilirubin Negative, Urine Urobilinogen 2.0, Ur Leukocyte Esterase Negative, Urine RBC Occasional, Urine WBC Occasional, Urine Bacteria None 05/19/25 17:44: Chlamy pneumoniae PCR Not detected, Adenovirus (PCR) Not detected, B. pertussis DNA (PCR) Not detected, Coronavirus OC43 (PCR) Not detected, Coronavirus HKU1 (PCR) Not detected, Coronavirus 229E (PCR) Not detected, SARS-CoV-2 (PCR) Not detected, Coronavirus NL63 (PCR) Not detected, Human Metapneumovir PCR Not detected, Influenza A (H1) PCR Not detected, Influ A (H1N1/09) PCR Not detected, Influenza A (H3) PCR Not detected, Influenza Type A (PCR) Not detected, Influenza Type B (PCR) Not detected, M. pneumoniae (PCR) Not detected, Parainfluenza 1 (PCR) Not detected, Parainfluenza 2 (PCR) Not detected, Parainfluenza 3 (PCR) Not detected, Parainfluenza 4 (PCR) Not detected, RSV (PCR) Not detected, Entero/Rhino (PCR) Not detected 05/19/25 18:08: Direct Bilirubin 3.1 H 05/20/25 06:50: WBC 0.2 L* D, RBC 1.69 L* D, Hgb 6.0 L* D, Hct 17.1 L*, MCV 101.2 H, MCH 35.5 H, MCHC 35.1, RDW 14.5, Plt Count 63 L D, MPV 10.9 H, Neut % (Auto) 47.9, Lymph % (Auto) 43.5, [place] % (Auto) 4.3, Eos % (Auto) 4.3, Baso % (Auto) 0.0 L, Neut # (Auto) 0.1 L*, Lymph # (Auto) 0.1 L, [place] # (Auto) 0.0 L, Eos # (Auto) 0.0, Baso # (Auto) 0.0, Sodium 133 L, Potassium 4.6 D, Chloride 108 H, Carbon Dioxide 20 L, Anion Gap 9.6, BUN 13, Creatinine 0.70, Estimated Creat Clear 198, Estimated GFR 120, Est GFR ( Amer) 145, Glucose 155 H, Calcium 8.8, Magnesium 2.0, Total Bilirubin 3.2 H 05/20/25 06:50: Total Bilirubin 3.2 H, Direct Bilirubin 1.7 H, Conjugated Bilirubin 0.0, Indirect Bilirubin 1.5 H, Unconjugated Bilirubin 1.6 H, AST 110 H D, ALT 118 H, Alkaline Phosphatase 203 H, Total Protein 6.3, Albumin 3.4 L D, Globulin 2.9, Albumin/Globulin Ratio 1.2 Medical History: Medical History (Updated 05/19/25 @ 18:01 by Jaziel Benton MD) Splenomegaly No significant past medical history Assessment and Plan Assessment and plan all Dx Assessment and Plan for all problems:: Pharmacokinetic dosing service Objective: Age: 49 yo Serum creatinine: 0.7 mg/dL Height: 68.9 Inches Weight (kg): 109.633 Diagnosis: NEUTROPENIC FEVER, SUSPECTED INFECTION Assessment: IBW (kg): 70.47 Dosing wt(kg): 109.633 Estimated Creatinine clearance (ml/min): 127.2 CRCL method: Cockcroft and Gault using ibw(default). Drug selected: Vancomycin Vd (liters): 76.7 (factor used: 0.7 L/kg) Moshe (hr-1): 0.110 Half life (hrs): 6.30 CLvanco=?? 8.437 L/hr Recommended dose: 2250 mg Interval: 12 hrs Infusion time (hrs): 2.0 Predicted peak (mcg/mL): 35.9 Predicted trough (mcg/mL): 11.95 Total body weight is being used for vancomycin dosing. Recommendations: Give Vancomycin 2250 mg q 12 hrs with an expected Cpeak of 35.9 mcg/ml and an expected Ctrough of 11.95 mcg/ml AUC 0-24 /LUCIAN Data: LUCIAN 0.5 mcg/mL:?? AUC/LUCIAN:? 1066.7 LUCIAN 1.0 mcg/mL:?? AUC/LUCIAN:? 533.4 --------- LUCIAN 1.5 mcg/mL:?? AUC/LUCIAN:? 355.6 LUCIAN 2.0 mcg/mL:?? AUC/LUCIAN:? 266.7 Thank you for the consult
[2025-05-20] MEDS: VANCOMYCIN HCL 2,250 MG in 0.9 % SODIUM CHLORIDE 250 ML 125 MG IV ×2 (08:37→20:01)
[2025-05-20 10:45] LABS: Activated Partial Thrombo Time 26.0 seconds (22.8-30.6); INR 1.05 (0.9-1.1); Prothrombin Time 11.6 seconds (10.1-12.5)
[2025-05-20 11:23] LABS: Macrocytosis 1+; Total Cells Counted 25
--- NOTE | 2025-05-20 13:59 | PC.NURSE ---
Aox 4, up ad uriah, 18g R ac NS @ 100 ml/hr, on RA, regular diet, no c/o pain, hgb 6.0 and awaiting blood form [facility] to transfuse 2 units.
[2025-05-20 16:00] VITALS: BP 131/69; PULSE 76; RESP 16; TEMP 36.6; O2SAT 97
--- NOTE | 2025-05-20 17:36 | P.PN_ITS ---
Subjective *Date: 05/20/25 *Time: 21:59 Interval history: Patient remained afebrile overnight. States he is feeling significantly better. Stable on room air. Tolerating p.o. intake. No nausea or vomiting. Worsening anemia today. No active signs of bleeding. Medical Exam Vital signs and Labs for Last 24 Hours: Vital Signs Temp Pulse Resp BP Pulse Ox O2 Del Method 05/20/25 16:35 Room Air 05/20/25 16:00 97.8 F 76 16 131/69 97 Room Air 05/20/25 13:52 Room Air 05/20/25 12:25 Room Air 05/20/25 09:55 Room Air 05/20/25 08:30 Room Air 05/20/25 08:00 97.9 F 76 16 119/73 96 Room Air 05/20/25 08:00 Room Air 05/20/25 06:53 Room Air 05/20/25 05:00 Room Air 05/20/25 04:00 98.5 F 74 18 133/71 94 L Room Air 05/20/25 03:00 Room Air 05/20/25 01:00 Room Air 05/20/25 00:28 98.4 F 79 16 162/76 H 95 Room Air 05/19/25 23:00 Room Air 05/19/25 21:00 Room Air 05/19/25 20:00 Room Air 05/19/25 20:00 98.4 F 104 H 18 149/77 H 96 Room Air 05/19/25 18:33 Room Air Intake and Output 05/20/25 05/20/25 05/20/25 07:59 15:59 23:59 Intake Total 1090 / 1790 700 / 1790 Balance 1090 / 1790 700 / 1790 Intake: Intake, Oral Amount 840 / 840 Intake, Total IV Amount 250 / 950 700 / 950 0.9 % Sodium Chloride 1000ML 1, 700 / 700 000 ml @ 100 mls/hr IV .Q10H [facility] Rx#:[id number] Vancomycin HCl 2,250 mg In 0.9 250 / 250 % Sodium Chloride 250 ml @ 125 mls/hr IV Q12H [facility] Rx#:[id number] Other: Weight 109.633 kg 109.633 kg Patient Weight 05/20/25 23:59 Weight 109.633 kg Laboratory Results - last 24 hr 05/19/25 17:35: Urine Color Yellow, Urine Appearance Clear, Urine pH 6.0, Ur Specific [place] <= 1.005, Urine Protein Negative, Urine Glucose (UA) 3+, Urine Ketones Negative, Urine Blood Negative, Urine Nitrate Negative, Urine Bilirubin Negative, Urine Urobilinogen 2.0, Ur Leukocyte Esterase Negative, Urine RBC Occasional, Urine WBC Occasional, Urine Bacteria None 05/19/25 17:44: Chlamy pneumoniae PCR Not detected, Adenovirus (PCR) Not detected, B. pertussis DNA (PCR) Not detected, Coronavirus OC43 (PCR) Not detected, Coronavirus HKU1 (PCR) Not detected, Coronavirus 229E (PCR) Not detected, SARS-CoV-2 (PCR) Not detected, Coronavirus NL63 (PCR) Not detected, Human Metapneumovir PCR Not detected, Influenza A (H1) PCR Not detected, Influ A (H1N1/09) PCR Not detected, Influenza A (H3) PCR Not detected, Influenza Type A (PCR) Not detected, Influenza Type B (PCR) Not detected, M. pneumoniae (PCR) Not detected, Parainfluenza 1 (PCR) Not detected, Parainfluenza 2 (PCR) Not detected, Parainfluenza 3 (PCR) Not detected, Parainfluenza 4 (PCR) Not detected, RSV (PCR) Not detected, Entero/Rhino (PCR) Not detected 05/19/25 18:08: Direct Bilirubin 3.1 H 05/20/25 06:00: Blood Type Confirm B Positive 05/20/25 06:50: WBC 0.2 L* D, RBC 1.69 L* D, Hgb 6.0 L* D, Hct 17.1 L*, MCV 101.2 H, MCH 35.5 H, MCHC 35.1, RDW 14.5, Plt Count 63 L D, MPV 10.9 H, Neut % (Auto) 47.9, Lymph % (Auto) 43.5, Sharkey % (Auto) 4.3, Eos % (Auto) 4.3, Baso % (Auto) 0.0 L, Neut # (Auto) 0.1 L*, Lymph # (Auto) 0.1 L, Sharkey # (Auto) 0.0 L, Eos # (Auto) 0.0, Baso # (Auto) 0.0, Total Counted 25, Neutrophils % (Manual) 48, Lymphocytes % (Manual) 44, Monocytes % (Manual) 8, Platelet Estimate Moderate decrease, RBC Morphology Not Reportable, Macrocytosis 1+, Sodium 133 L, Potassium 4.6 D, Chloride 108 H, Carbon Dioxide 20 L, Anion Gap 9.6, BUN 13, Creatinine 0.70, Estimated Creat Clear 198, Estimated GFR 120, Est GFR ( Amer) 145, Glucose 155 H, Calcium 8.8, Magnesium 2.0, Total Bilirubin 3.2 H 05/20/25 06:50: Total Bilirubin 3.2 H, Direct Bilirubin 1.7 H, Conjugated Bilirubin 0.0, Indirect Bilirubin 1.5 H, Unconjugated Bilirubin 1.6 H, AST 110 H D, ALT 118 H, Alkaline Phosphatase 203 H, Total Protein 6.3, Albumin 3.4 L D, Globulin 2.9, Albumin/Globulin Ratio 1.2 05/20/25 08:18: Blood Type B Positive, Antibody Screen Positive, Crossmatch (AHG) See Detail 05/20/25 10:20: PT 11.6, INR 1.05, APTT 26.0, Lactate Dehydrogenase 326 I & O for Labs for Last 24 Hours: Intake & Output 05/17/25 05/18/25 05/19/25 05/20/25 23:59 23:59 23:59 23:59 Intake Total 1340 / 1340 1790 / 1790 Output Total 550 / 550 Balance 790 / 790 1790 / 1790 Weight 106.169 kg 109.633 kg Constitutional: Present no acute distress, obese and cooperative Head: Present atraumatic and normocephalic ENT: Present normal exam Respiratory: Present normal respiratory effort; Absent rhonchi or wheezes Cardiac: Present Reg Rate and Rhythm GI: Present soft and normal bowel sounds; Absent distention or tenderness Extremities: Present normal inspection and full ROM Skin: Present intact and pallor; Absent erythema Neuro: Present Grossly Intact, alert, awake, oriented x 3 and moves all extremities Assessment and Plan *Assessment and plan (1) Pancytopenia: Status: Acute Category: Medical Code(s): D61.818 - Other pancytopenia (2) Thrombocytopenia: Status: Acute Category: Medical Code(s): D69.6 - Thrombocytopenia, unspecified (3) Transaminitis: Status: Acute Category: Medical Code(s): R74.01 - Elevation of levels of liver transaminase levels (4) Neutropenic fever: Status: Acute Category: Medical Code(s): D70.9 - Neutropenia, unspecified; R50.81 - Fever presenting with conditions classified elsewhere (5) Anemia: Problem Comment: Side effect of chemotherapy Status: Acute Category: Medical Code(s): D64.9 - Anemia, unspecified Plan Jm Ramirez is a 49-year-old male with medical history significant for hairy cell leukemia (following closely with Dr. Reyes) who presents with 2 days onset of intractable nausea/vomiting. Patient received chemotherapy with cladribine for 5 days this past week and had been doing relatively well until he restarted his prophylactic antibiotics levofloxacin and Bactrim this past weekend. He states it is unclear whether he was chemo accosted or the antibiotics, but nonetheless he was not able to tolerate p.o. intake this past weekend. He came to infusion clinic on day of admission to get blood work which revealed transaminitis. Dr. Walker requested admission. Has remained afebrile. Cultures remain negative. Slight improvement in neutropenia today. Transfusing due to worsening anemia. Given improvement in how patient feels, we will continue to monitor overnight. Continuing antibiotics today. Problems addressed as follows: #Neutropenic fever #Hairy cell leukemia #Pancytopenia #Chemotherapy ? Recently started on 5 days of cladribine by Dr. Reyes this past week, has had intractable nausea/vomiting since. Nausea and vomiting has resolved in the past 24 hours. Tolerating p.o. intake today. ? Endorses fevers of 102 Fahrenheit at home over the past 2 days, but no focal symptoms. - Afebrile since admission. White cell count of 0.2. ANC of 100. Repeat CBC, CMP, magnesium ordered for the morning. Platelets improved to 63. - Hemoglobin dropped to 6.0. Will transfuse 2 units of irradiated and CMV negative red blood cells. - Haptoglobin, LDH, peripheral smear, PT and PTT ordered to evaluate for coagulopathy and hemolysis versus delusional component in conjunction with chemotherapy component causing his anemia - Blood culture and urine culture remain negative. Continue empiric IV vancomycin, cefepime. ? Continue allopurinol 300 mg. - discussed case with oncology today, recommend further workup for anemia. Concerned that symptoms may have been secondary to Levaquin or chemotherapy. Does not appear to be infectious at this time. Continue monitoring for 24 hours. #Intractable nausea/vomiting #Transaminitis ? Improved with IV fluid resuscitation. Tolerating p.o. intake. Discontinue IV fluids today -Liver enzymes improving with Bilirubin improving, total bilirubin 3.2 but a mix of indirect and direct. AST 110, ALT 118, alk phos 203 -Hepatitis panel pending. ? RUQ ultrasound unremarkable. Full code DVT prophylaxis: Patient ambulatory, has thrombocytopenia
[2025-05-20 19:50] VITALS: BP 133/69; PULSE 81; RESP 16; TEMP 36.6; O2SAT 96
[2025-05-20] MEDS: CALCIUM CARBONATE 500MG CHEWTAB 500 MG PO (22:27)
[2025-05-21] VITALS (24 sets, daily range): BP systolic 115–156; BP diastolic 60–89; PULSE 60–87; RESP 16–17; TEMP 36.4–37.8; O2SAT 94–99; BMI 34.7
--- NOTE | 2025-05-21 02:26 | PC.NURSE ---
Pt AOx4, very pleasant. Pt receiving blood per provider d/t Hgb 6.0. Blood verified and read back with Jasmeet Shannon RN. Transfusion began at 0207, stayed with pt for first 15 minutes. Pt is denying any pain or chills and is afebrile. Pt currently resting in bed with eyes closed. Respirations even and unlabored. Bed is low, locked, and call light is in reach.
[2025-05-21] MEDS: CEFEPIME HCL 2 GM in 0.9 % SODIUM CHLORIDE 100 ML IV (09:03)
[2025-05-21] MEDS: ALLOPURINOL 300MG TABLET 300 MG PO (09:03)
[2025-05-21] MEDS: VANCOMYCIN HCL 2,250 MG in 0.9 % SODIUM CHLORIDE 250 ML 125 MG IV (09:55)
[2025-05-21 10:16] LABS: Hematocrit 25.9 % (42.0-52.0); Hemoglobin 9.1 g/dL (14.1-18.0); Immature Granulocytes % 2.7 %; Mean Corpuscular HGB Conc 35.1 g/dL (31.8-35.4); Mean Corpuscular Hemoglobin 33.0 pg (27.0-31.2); Mean Corpuscular Volume 93.8 fl (80-94); Nucleated Red Blood Cells % 8.1 %; Platelet Count 64 K/mm3 (142-424); Red Blood Count 2.76 M/mm3 (4.60-6.20); Red Cell Distribution Width-SD 55.8 fL
[2025-05-21 10:18] LABS: White Blood Count 0.4 K/mm3 (4.8-10.8)
[2025-05-21 10:27] LABS: Albumin Level 3.4 g/dl (3.5-5.0); Chloride 103 mmol/L (98-107)
[2025-05-21 10:28] LABS: Potassium 3.3 mmoL/L (3.5-5.1); Sodium 131 mmol/L (136-145)
[2025-05-21 10:30] LABS: Alanine Aminotransferase 121 U/L (12-78); Aspartate Amino Transferase 75 U/L (17-59); Blood Urea Nitrogen 14 mg/dl (9-20); Creatinine Clearance Estimated 192 mL/min (50-200); Creatinine,Serum 0.70 mg/dl (0.66-1.25); Estimated Glomerular Filt Rate 120 ml/min (>60); GFR (African American) 145 ML/MIN (>60)
[2025-05-21 10:31] LABS: Albumin/Globulin Ratio 1.2 (1.1-1.8); Alkaline Phosphatase 159 U/L (38-126); Anion Gap 8.3 mEq/L (5-15); Bilirubin,Total 2.6 mg/dl (0.2-1.3); Calcium 8.8 mg/dl (8.4-10.2); Carbon Dioxide 23 mmol/L (22.0-30.0); Globulin 2.9 g/dL (1.3-3.2); Glucose 129 mg/dl (74-100); Magnesium 1.7 mg/dl (1.6-2.3); Total Protein,Serum 6.3 g/dl (6.3-8.2)
[2025-05-21 11:31] LABS: RBC Morphology Normal; Total Cells Counted 25
[2025-05-21] MEDS: MAGNESIUM SULFATE IN WATER 2 GM/50 ML PIGGYBACK IV (12:17)
[2025-05-21] MEDS: POTASSIUM CHLORIDE 20MEQ TAB 40 MEQ PO (12:17)
--- NOTE | 2025-05-21 16:45 | EXP.DC.SUM ---
General Admission date:: 05/19/25 Discharge date: 05/21/25 HPI HPI HPI: Jm Ramirez is a 49-year-old male with medical history significant for hairy cell leukemia (following closely with Dr. Reyes) who presents with 2 days onset of intractable nausea/vomiting. Patient received chemotherapy with cladribine for 5 days this past week and had been doing relatively well until he restarted his prophylactic antibiotics levofloxacin and Bactrim this past weekend. He states it is unclear whether he was chemo accosted or the antibiotics, but nonetheless he was not able to tolerate p.o. intake this past weekend. He came to infusion clinic today to get blood work which revealed transaminitis. I spoke with Dr. Reyes who recommended admission for close monitoring, IV fluids, and further evaluation of transaminitis. Of note, patient states he has been having fevers over the past few days of 102 point Fahrenheit. Denies chest pain, shortness of breath, abdominal pain. Exam Data for Last 24 hours Vital signs and Labs for Last 24 Hours: Temp Pulse Resp BP Pulse Ox O2 Del Method 98.4 F 83 16 137/80 98 Room Air 05/21/25 09:32 05/21/25 09:00 05/21/25 09:00 05/21/25 09:00 05/21/25 09:00 05/21/25 13:00 Laboratory Results - last 24 hr 05/19/25 18:08: HCV Quantitation Nd I & O for Last 24 hours: Intake & Output 05/20/25 05/21/25 05/22/25 05/23/25 23:59 23:59 23:59 23:59 Intake Total 2370 / 2370 1023.28 / 1023.28 Output Total 0 / 0 Balance 2370 / 2370 1023.28 / 1023.28 Weight 109.633 kg 106.186 kg Microbiology Reports for the Last 24 Hours: Microbiology 05/19/25 18:08 Blood Blood Culture - Preliminary NO GROWTH AFTER 4 DAYS 05/19/25 18:00 Blood Blood Culture - Preliminary NO GROWTH AFTER 4 DAYS Results Data Completed and Pending Labs on day of discharge: Labs from last 24 hours 05/19/25 18:08 HCV Quantitation Nd Preliminary micro results at discharge 05/19/25 18:08 Blood Culture - Preliminary Blood NO GROWTH AFTER 4 DAYS 05/19/25 18:00 Blood Culture - Preliminary Blood NO GROWTH AFTER 4 DAYS DS: Diagnosis Discharge Diagnosis (1) Pancytopenia: Status: Acute Code(s): D61.818 - Other pancytopenia (2) Thrombocytopenia: Status: Acute Code(s): D69.6 - Thrombocytopenia, unspecified (3) Transaminitis: Status: Acute Code(s): R74.01 - Elevation of levels of liver transaminase levels (4) Neutropenic fever: Status: Acute Code(s): D70.9 - Neutropenia, unspecified; R50.81 - Fever presenting with conditions classified elsewhere (5) Anemia: Status: Acute Code(s): D64.9 - Anemia, unspecified Problem details: Side effect of chemotherapy Meds Home Medications and Allergies Home Medications ?Medication ?Instructions ?Recorded ?Confirmed ?Type sertraline 50 mg tablet 50 mg PO DAILY Anxiety 90 days #90 03/07/25 05/19/25 Rx tabs acyclovir 800 mg tablet 800 mg PO BID Infection/chemo #60 04/30/25 05/19/25 Rx tabs fluconazole 200 mg tablet 400 mg (2 x 200 mg) PO DAILY 04/30/25 05/19/25 Rx Infection/chemo #60 tabs levofloxacin 500 mg tablet 500 mg PO DAILY infection/ chemo 04/30/25 05/19/25 Rx #30 tabs sulfamethoxazole 800 1 tab PO BID infection/chemo #60 04/30/25 05/19/25 Rx mg-trimethoprim 160 mg tablet tabs (Bactrim DS) allopurinol 300 mg tablet 300 mg PO DAILY 05/19/25 05/19/25 History cetirizine 10 mg tablet 10 mg PO DAILY 05/19/25 05/19/25 History meloxicam 15 mg tablet 15 mg PO DAILY 05/19/25 05/19/25 History prednisone 20 mg tablet 30 mg (1.5 x 20 mg) PO DAILY 05/22/25 Rx Infection #10 tabs New Prescriptions to Start Prescriptions: Allergies Allergy/AdvReac Type Severity Reaction Status Date / Time Penicillins (PENICILLINS) Allergy Mild Other Verified 04/29/25 11:20 Discharge Plan Disposition Patient Disposition: Home, Self-Care Condition: Good Discharge Order Discharge Orders: Discharge Order (Routine); Ordered 05/21/25 Ordered By: Ros Magana Follow up Plan Follow up with: Adeola Méndez APRN [Primary Care Provider, Medical] - 05/28/25 1:00 pm Prescriptions/Medication Reconciliation: Continued fluconazole 200 mg tablet 400 mg PO DAILY Qty: 60 1RF Rx Instructions: take 400 mg daily while on chemotherapy sulfamethoxazole-trimethoprim [Bactrim DS] 800-160 mg tablet 1 tab PO BID Qty: 60 1RF Rx Instructions: take one tablet twice daily while on chemotherapy acyclovir 800 mg tablet 800 mg PO BID Qty: 60 1RF Rx Instructions: take 800 mg twice daily while on chemotherapy levofloxacin 500 mg tablet 500 mg PO DAILY Qty: 30 1RF Rx Instructions: take one tablet daily sertraline 50 mg tablet 50 mg PO DAILY 90 Days Qty: 90 0RF meloxicam 15 mg tablet 15 mg PO DAILY Patient Comments: TAKE 1 TABLET BY MOUTH DAILY allopurinol 300 mg tablet 300 mg PO DAILY cetirizine 10 mg tablet 10 mg PO DAILY No Action prednisone 20 mg tablet 30 mg PO DAILY Qty: 10 0RF Rx Instructions: take 30 mg daily take on 05/22 and 05/23 Problem Reconciliation Problems Reviewed?: Yes Patient Discharge Instructions ACTIVITY: Continue current activity DIET: continue same diet Patient Instructions: Nausea and Vomiting-Adult, DI for Neutropenia Print Language: Setswana Providers Primary Care Provider: Adeola Méndez Admit Provider: Jaziel Doss Attending Provider: Jaziel Doss
--- NOTE | 2025-05-22 10:04 | SW/DCPLANNER ---
Spoke with patient's on the phone. Patient's stated that he is doing much better than the days before. Patient's stated that they are aware of his follow up appointment. Patient's stated that they were not prescribed any new medicine. Patient's stated that they have no concerns or questions at this time. Andrade Livingston
== END 2025-05-21 13:19 | disposition home or self-care (01) | DRG 947 ==
LOC: 2ND 12:37
PROVIDERS: Internal Medicine Adolescent Medicine; Internal Medicine Medical Oncology; Admitting Provider Student in an Organized Health Care Education/Training Program; PCP Nurse Practitioner Family; Visit Provider Student in an Organized Health Care Education/Training Program
DX: R74.01 Elevation of levels of liver transaminase levels (principal); D61.810 Antineoplastic chemotherapy induced pancytopenia; C91.40 Hairy cell leukemia not having achieved remission; R50.81 Fever presenting with conditions classified elsewhere; R11.2 Nausea with vomiting, unspecified; D70.1 Agranulocytosis secondary to cancer chemotherapy; F17.290 Nicotine dependence, other tobacco product, uncomplicated; T45.1X5A Adverse effect of antineoplastic and immunosuppressive drugs, initial encounter; Z79.899 Other long term (current) drug therapy; Z88.0 Allergy status to penicillin
CPT/HCPCS: 36415; 36430; 71045; 76705; 80053; 80074; 81001; 81596; 82247; 82248; 83615; 83735; 84550; 85007; 85025; 85610; 85730; 86850; 86870; 87040; 87633; 96360; 96375; J0692; J1100; J2405; J3370; J3475; J7030; J7050; P9016

== ENCOUNTER 2025-05-23 08:13 | Outpatient (CLI) | payer OTHER, SELFPAY ==
--- NOTE | 2025-05-23 08:15 | PC.NURSE ---
0815-COLLECTED LABS VIA VENIPUCTURE STICK IN RIGHT AC WITH BUTTERFLY NEEDLE; WILL WAIT ON RESULTS
[2025-05-23 08:25] LABS: Hematocrit 25.2 % (42.0-52.0); Hemoglobin 9.1 g/dL (14.1-18.0); Immature Granulocytes % 1.1 %; Mean Corpuscular HGB Conc 36.1 g/dL (31.8-35.4); Mean Corpuscular Hemoglobin 33.3 pg (27.0-31.2); Mean Corpuscular Volume 92.3 fl (80-94); Nucleated Red Blood Cells % 2.2 %; Platelet Count 82 K/mm3 (142-424); Red Blood Count 2.73 M/mm3 (4.60-6.20); Red Cell Distribution Width-SD 54.5 fL
[2025-05-23 08:39] LABS: Albumin Level 3.1 g/dl (3.5-5.0); Chloride 102 mmol/L (98-107); Sodium 131 mmol/L (136-145)
[2025-05-23 08:40] LABS: Potassium 3.9 mmoL/L (3.5-5.1)
[2025-05-23 08:42] LABS: Alanine Aminotransferase 151 U/L (12-78); Albumin/Globulin Ratio 0.8 (1.1-1.8); Anion Gap 9.9 mEq/L (5-15); Aspartate Amino Transferase 58 U/L (17-59); Blood Urea Nitrogen 14 mg/dl (9-20); Carbon Dioxide 23 mmol/L (22.0-30.0); Creatinine,Serum 0.50 mg/dl (0.66-1.25); Estimated Glomerular Filt Rate 177 ml/min (>60); GFR (African American) 214 ML/MIN (>60); Globulin 3.7 g/dL (1.3-3.2); Total Protein,Serum 6.8 g/dl (6.3-8.2)
[2025-05-23 08:43] LABS: Alkaline Phosphatase 204 U/L (38-126); Bilirubin,Total 3.0 mg/dl (0.2-1.3); Calcium 9.2 mg/dl (8.4-10.2); Glucose 140 mg/dl (74-100); White Blood Count 0.9 K/mm3 (4.8-10.8)
--- NOTE | 2025-05-23 09:00 | PC.NURSE ---
0900-CALLED [facility] C [facility] TO START THE PA PROCESS FOR CT SCAN.
--- NOTE | 2025-05-23 09:50 | PC.NURSE ---
0950-MARIA C BALES, UTILIZATION MANAGEMENT UPDATED RN ABOUT PA FOR CT SCAN; INSURANCE STATES THEY HAVE 2-15 DAYS TO REPLY.
[2025-05-23 09:53] LABS: Bilirubin,Direct 1.1 mg/dl (0.0-0.4)
[2025-05-23 10:18] LABS: Bilirubin,Indirect 1.9 mg/dL (0.0-0.9)
[2025-05-23 11:16] LABS: RBC Morphology Normal; Total Cells Counted 25
== END 2025-05-23 09:58 | disposition home or self-care (01) ==
LOC: INF 08:15
PROVIDERS: PCP Nurse Practitioner Family; Visit Provider Internal Medicine Medical Oncology
DX: C91.40 Hairy cell leukemia not having achieved remission (principal)
CPT/HCPCS: 36415; 80053; 82248; 85007; 85025; 85027

== ENCOUNTER 2025-05-26 08:09 | Outpatient (CLI) | payer OTHER, SELFPAY ==
--- NOTE | 2025-05-26 08:15 | PC.NURSE ---
0815-collected labs via venipuncture stick in right ac with butterfly needle;pt to d/c home
[2025-05-26 08:28] LABS: Hematocrit 22.9 % (42.0-52.0); Hemoglobin 8.1 g/dL (14.1-18.0); Immature Granulocytes % 1.4 %; Mean Corpuscular HGB Conc 35.4 g/dL (31.8-35.4); Mean Corpuscular Hemoglobin 33.1 pg (27.0-31.2); Mean Corpuscular Volume 93.5 fl (80-94); Nucleated Red Blood Cells % 0 %; Platelet Count 115 K/mm3 (142-424); Red Blood Count 2.45 M/mm3 (4.60-6.20); Red Cell Distribution Width-SD 52.4 fL
[2025-05-26 08:39] LABS: Alanine Aminotransferase 98 U/L (12-78); Albumin Level 3.7 g/dl (3.5-5.0); Albumin/Globulin Ratio 1.5 (1.1-1.8); Alkaline Phosphatase 163 U/L (38-126); Anion Gap 10.1 mEq/L (5-15); Aspartate Amino Transferase 47 U/L (17-59); Bilirubin,Total 1.9 mg/dl (0.2-1.3); Blood Urea Nitrogen 15 mg/dl (9-20); Calcium 9.2 mg/dl (8.4-10.2); Carbon Dioxide 23 mmol/L (22.0-30.0); Chloride 103 mmol/L (98-107); Creatinine,Serum 0.70 mg/dl (0.66-1.25); Estimated Glomerular Filt Rate 120 ml/min (>60); GFR (African American) 145 ML/MIN (>60); Globulin 2.5 g/dL (1.3-3.2); Glucose 132 mg/dl (74-100); Potassium 4.1 mmoL/L (3.5-5.1); Sodium 132 mmol/L (136-145); Total Protein,Serum 6.2 g/dl (6.3-8.2)
[2025-05-26 08:50] LABS: White Blood Count 0.7 K/mm3 (4.8-10.8)
[2025-05-26 09:59] LABS: RBC Morphology Normal; Total Cells Counted 25
== END 2025-05-26 08:20 | disposition home or self-care (01) ==
LOC: INF 08:11
PROVIDERS: PCP Nurse Practitioner Family; Visit Provider Internal Medicine Medical Oncology
DX: C91.40 Hairy cell leukemia not having achieved remission (principal)
CPT/HCPCS: 36415; 80053; 85007; 85025

== ENCOUNTER 2025-05-27 09:55 | Outpatient (CLI) | payer OTHER, SELFPAY ==
--- NOTE | 2025-05-27 10:08 | PC.NURSE ---
1008-collected labs via venipuncture stick in right ac with butterfly needle;pt to oncology appt
[2025-05-27 10:41] LABS: Hemoglobin 7.5 g/dL (14.1-18.0); Immature Granulocytes % 1.1 %; Mean Corpuscular HGB Conc 40.5 g/dL (31.8-35.4); Mean Corpuscular Hemoglobin 40.5 pg (27.0-31.2); Mean Corpuscular Volume 100.0 fl (80-94); Nucleated Red Blood Cells % 2.2 %; Platelet Count 140 K/mm3 (142-424); Red Blood Count 1.85 M/mm3 (4.60-6.20); Red Cell Distribution Width-SD 51.7 fL
[2025-05-27 10:43] LABS: Hematocrit 18.5 % (42.0-52.0); White Blood Count 0.9 K/mm3 (4.8-10.8)
[2025-05-27 10:47] LABS: Anion Gap 8.6 mEq/L (5-15); Aspartate Amino Transferase 42 U/L (17-59); Bilirubin,Total 2.2 mg/dl (0.2-1.3); Blood Urea Nitrogen 16 mg/dl (9-20); Calcium 8.8 mg/dl (8.4-10.2); Carbon Dioxide 24 mmol/L (22.0-30.0); Chloride 101 mmol/L (98-107); Creatinine,Serum 0.60 mg/dl (0.66-1.25); Estimated Glomerular Filt Rate 143 ml/min (>60); GFR (African American) 173 ML/MIN (>60); Glucose 107 mg/dl (74-100); Potassium 3.6 mmoL/L (3.5-5.1); Sodium 130 mmol/L (136-145)
[2025-05-27 10:48] LABS: Alanine Aminotransferase 90 U/L (12-78); Albumin Level 3.2 g/dl (3.5-5.0); Albumin/Globulin Ratio 0.9 (1.1-1.8); Alkaline Phosphatase 162 U/L (38-126); Globulin 3.5 g/dL (1.3-3.2); Total Protein,Serum 6.7 g/dl (6.3-8.2)
[2025-05-27 11:28] LABS: RBC Morphology Normal; Total Cells Counted 50
--- NOTE | 2025-05-27 13:00 | CT_ITS ---
FINAL REPORT TECHNIQUE: Thin section axial images are obtained through the abdomen after intravenous contrast. Reconstruction images were obtained from the axial data. Exam was performed using dose reduction techniques. This study was performed with techniques to keep radiation doses as low as reasonably achievable (ALARA). Individualized dose reduction techniques using automated exposure control or adjustment of mA and/or kV according to the patient's size were employed. CLINICAL HISTORY: elevated liver enzymes, leukemia COMPARISON: 04/11/2025 FINDINGS: LUNG BASES: Lung bases are clear. Heart size is normal. LIVER: Homogeneous. No focal lesion. GALLBLADDER/BILIARY SYSTEM: The gallbladder has been surgically resected. No biliary dilatation. SPLEEN: The spleen is mildly enlarged, measuring 14.1 cm in greatest dimension. PANCREAS: Unremarkable. ADRENALS: Unremarkable. KIDNEYS/URETERS/BLADDER: There is a large septated left renal cyst, stable in appearance since the prior exam. GI TRACT: No small bowel obstruction or dilatation. Normal appendix. A moderate amount of retained stool is noted in the proximal colon. LYMPH NODES/RETROPERITONEUM/MESENTERY: No lymphadenopathy. No abdominal aortic aneurysm. ABDOMINAL WALL: The abdominal wall is intact. FREE FLUID: No ascites. BONES: No acute osseous abnormality. IMPRESSION: Septated left renal cyst, stable since the prior CT of 04/11/2025. Mild splenomegaly. Reviewed, Interpreted and Dictated by Janie Salguero MD Transcribed by Stephany Moran Authenticated and [facility]
[2025-05-27] MEDS: SODIUM CHLORIDE 0.9% 10ML SYR (RAD ONLY) 10 ML IV (13:12)
[2025-05-27] MEDS: IOPAMIDOL-370 (76%);100ML BOTTLE 75 ML IV (13:12)
[2025-05-27] MEDS: DIATRIZOATE MEG 66% & DIATRIZOATE NA 10% 30ML UDC 30 ML PO (13:12)
== END 2025-05-27 10:10 | disposition home or self-care (01) ==
PROVIDERS: PCP Nurse Practitioner Family; Visit Provider Internal Medicine Medical Oncology
DX: C91.40 Hairy cell leukemia not having achieved remission (principal); N28.1 Cyst of kidney, acquired; R16.1 Splenomegaly, not elsewhere classified; R79.89 Other specified abnormal findings of blood chemistry
CPT/HCPCS: 36415; 74160; 80053; 85007; 85025; Q9963; Q9967

== ENCOUNTER 2025-05-29 08:13 | Outpatient (CLI) | payer OTHER, SELFPAY ==
--- NOTE | 2025-05-29 08:26 | PC.NURSE ---
0826-collected labs via venipuncture stick in right ac with butterfly needle;pt to wait on labs
[2025-05-29 08:57] LABS: Albumin Level 3.1 g/dl (3.5-5.0); Chloride 103 mmol/L (98-107); Potassium 3.5 mmoL/L (3.5-5.1); Sodium 132 mmol/L (136-145)
[2025-05-29 09:00] LABS: Alanine Aminotransferase 71 U/L (12-78); Albumin/Globulin Ratio 0.9 (1.1-1.8); Alkaline Phosphatase 138 U/L (38-126); Ammonia 10 umol/L (9-30); Anion Gap 6.5 mEq/L (5-15); Aspartate Amino Transferase 31 U/L (17-59); Bilirubin,Total 1.8 mg/dl (0.2-1.3); Blood Urea Nitrogen 14 mg/dl (9-20); Calcium 8.9 mg/dl (8.4-10.2); Carbon Dioxide 26 mmol/L (22.0-30.0); Creatinine,Serum 0.60 mg/dl (0.66-1.25); Estimated Glomerular Filt Rate 143 ml/min (>60); GFR (African American) 173 ML/MIN (>60); Globulin 3.5 g/dL (1.3-3.2); Glucose 101 mg/dl (74-100); Total Protein,Serum 6.6 g/dl (6.3-8.2)
[2025-05-29 09:01] LABS: Hemoglobin 7.0 g/dL (14.1-18.0); Immature Granulocytes % 0.9 %; Mean Corpuscular Volume 103.2 fl (80-94); Nucleated Red Blood Cells % 2.6 %; Platelet Count 141 K/mm3 (142-424); Red Blood Count 1.54 M/mm3 (4.60-6.20)
[2025-05-29 09:05] LABS: Mean Corpuscular Hemoglobin 45.5 pg (27.0-31.2)
[2025-05-29 09:06] LABS: Mean Corpuscular HGB Conc 44.0 g/dL (31.8-35.4)
[2025-05-29 09:07] LABS: Hematocrit 15.9 % (42.0-52.0); White Blood Count 1.1 K/mm3 (4.8-10.8)
--- NOTE | 2025-05-29 09:20 | PC.NURSE ---
0920-collected type and cross with cristiana, warp hanger as witness.
[2025-05-29 09:49] LABS: Anisocytosis 1+; Macrocytosis 1+; Total Cells Counted 25
[2025-05-29 10:01] LABS: C-Reactive Protein 31.8 mg/L (0-4)
[2025-05-29 13:08] LABS: Ferritin 1280 ng/ml (17.9-464)
[2025-05-30 05:11] LABS: Immunoglobulin A, Qn 138 mg/dL (90-386); Immunoglobulin G, Qn 1066 mg/dL (603-1613); Immunoglobulin M, Qn 160 mg/dL (20-172)
[2025-06-02 08:32] LABS: ALT (SGPT) P5P 67 IU/L (0-55); AST (SGOT) P5P 28 IU/L (0-40); Alpha 2-Macroglobulins, Qn 105 mg/dL (110-276); Bilirubin, Total 1.4 mg/dL (0.0-1.2); Cholesterol, Total 143 mg/dL (100-199); GGT 157 IU/L (0-65); Glucose 97 mg/dL (70-99); Triglycerides 76 mg/dL (0-149)
== END 2025-05-29 09:30 | disposition home or self-care (01) ==
LOC: INF 08:14
PROVIDERS: Internal Medicine Gastroenterology; PCP Nurse Practitioner Family; Visit Provider Internal Medicine Medical Oncology
DX: R74.01 Elevation of levels of liver transaminase levels (principal); D64.9 Anemia, unspecified; C91.40 Hairy cell leukemia not having achieved remission
CPT/HCPCS: 36415; 80053; 81596; 82140; 82164; 82172; 82247; 82465; 82728; 82784; 82947; 82977; 83521; 84450; 84460; 84478; 85007; 85025; 85027; 85651; 86015; 86140; 86225; 86235; 86376; 86381; 86850; 86870

== ENCOUNTER 2025-05-30 08:11 | Outpatient (CLI) | payer OTHER, SELFPAY ==
[2025-05-30] VITALS (11 sets, daily range): BP systolic 125–148; BP diastolic 65–85; PULSE 72–87; RESP 17–18; TEMP 36.2–36.4; O2SAT 97–99
[2025-05-30] MEDS: 0.9 % SODIUM CHLORIDE 250 ML 25 ML IV (08:30)
== END 2025-05-30 23:59 | disposition home or self-care (01) ==
LOC: INF 08:12
PROVIDERS: PCP Nurse Practitioner Family; Visit Provider Internal Medicine Medical Oncology
DX: D64.9 Anemia, unspecified (principal); C91.40 Hairy cell leukemia not having achieved remission
CPT/HCPCS: 36430; J7050; P9016

== ENCOUNTER 2025-06-02 08:06 | Outpatient (CLI) | payer OTHER, SELFPAY ==
[2025-06-02 08:23] LABS: Hemoglobin 7.8 g/dL (14.1-18.0); Immature Granulocytes % 1.7 %; Mean Corpuscular HGB Conc 37.5 g/dL (31.8-35.4); Mean Corpuscular Hemoglobin 37.5 pg (27.0-31.2); Mean Corpuscular Volume 100.0 fl (80-94); Nucleated Red Blood Cells % 2.5 %; Platelet Count 128 K/mm3 (142-424); Red Blood Count 2.08 M/mm3 (4.60-6.20); Red Cell Distribution Width-SD 50.6 fL; White Blood Count 2.4 K/mm3 (4.8-10.8)
[2025-06-02 08:25] LABS: Hematocrit 20.8 % (42.0-52.0)
[2025-06-02 08:33] LABS: Albumin Level 3.0 g/dl (3.5-5.0); Chloride 104 mmol/L (98-107); Potassium 3.6 mmoL/L (3.5-5.1); Sodium 133 mmol/L (136-145)
[2025-06-02 08:36] LABS: Alanine Aminotransferase 53 U/L (12-78); Albumin/Globulin Ratio 0.9 (1.1-1.8); Alkaline Phosphatase 112 U/L (38-126); Anion Gap 7.6 mEq/L (5-15); Aspartate Amino Transferase 32 U/L (17-59); Bilirubin,Total 1.5 mg/dl (0.2-1.3); Blood Urea Nitrogen 17 mg/dl (9-20); Calcium 8.8 mg/dl (8.4-10.2); Carbon Dioxide 25 mmol/L (22.0-30.0); Creatinine,Serum 0.60 mg/dl (0.66-1.25); Estimated Glomerular Filt Rate 143 ml/min (>60); GFR (African American) 173 ML/MIN (>60); Globulin 3.2 g/dL (1.3-3.2); Glucose 128 mg/dl (74-100); Total Protein,Serum 6.2 g/dl (6.3-8.2)
== END 2025-06-02 08:15 | disposition home or self-care (01) ==
LOC: INF 08:07
PROVIDERS: PCP Nurse Practitioner Family; Visit Provider Internal Medicine Medical Oncology
DX: C91.40 Hairy cell leukemia not having achieved remission (principal)
CPT/HCPCS: 36415; 80053; 85025

== ENCOUNTER 2025-06-04 10:36 | Outpatient (CLI) | payer OTHER, SELFPAY ==
--- NOTE | 2025-06-04 10:54 | PC.NURSE ---
1054-collected labs via venipuncture stick in right ac with butterfly needle; pt to d/c home
[2025-06-04 11:08] LABS: Hematocrit 22.3 % (42.0-52.0); Hemoglobin 8.4 g/dL (14.1-18.0); Immature Granulocytes % 2.1 %; Mean Corpuscular HGB Conc 37.7 g/dL (31.8-35.4); Mean Corpuscular Hemoglobin 36.8 pg (27.0-31.2); Mean Corpuscular Volume 97.8 fl (80-94); Nucleated Red Blood Cells % 2.1 %; Platelet Count 131 K/mm3 (142-424); Red Blood Count 2.28 M/mm3 (4.60-6.20); Red Cell Distribution Width-SD 50.0 fL; White Blood Count 2.9 K/mm3 (4.8-10.8)
[2025-06-04 11:11] LABS: Albumin Level 3.9 g/dl (3.5-5.0); Bilirubin,Total 1.6 mg/dl (0.2-1.3); Chloride 105 mmol/L (98-107); Creatinine,Serum 0.60 mg/dl (0.66-1.25); Estimated Glomerular Filt Rate 143 ml/min (>60); GFR (African American) 173 ML/MIN (>60); Potassium 3.5 mmoL/L (3.5-5.1); Sodium 136 mmol/L (136-145)
[2025-06-04 11:21] LABS: Alanine Aminotransferase 50 U/L (12-78); Albumin/Globulin Ratio 1.5 (1.1-1.8); Alkaline Phosphatase 104 U/L (38-126); Anion Gap 9.5 mEq/L (5-15); Aspartate Amino Transferase 30 U/L (17-59); Blood Urea Nitrogen 13 mg/dl (9-20); Calcium 8.9 mg/dl (8.4-10.2); Carbon Dioxide 25 mmol/L (22.0-30.0); Globulin 2.6 g/dL (1.3-3.2); Glucose 95 mg/dl (74-100); Total Protein,Serum 6.5 g/dl (6.3-8.2)
== END 2025-06-04 10:55 | disposition home or self-care (01) ==
LOC: INF 10:37
PROVIDERS: PCP Nurse Practitioner Family; Visit Provider Internal Medicine Medical Oncology
DX: C91.40 Hairy cell leukemia not having achieved remission (principal)
CPT/HCPCS: 36415; 80053; 85025; 86850; 86870

== ENCOUNTER 2025-06-09 08:16 | Outpatient (CLI) | payer OTHER, SELFPAY ==
--- NOTE | 2025-06-09 08:27 | PC.NURSE ---
0827-collected labs via venipuncture stick in right ac with butterfly needle pt to wait on results.
[2025-06-09 08:41] LABS: Albumin Level 3.8 g/dl (3.5-5.0); Chloride 102 mmol/L (98-107); Potassium 3.6 mmoL/L (3.5-5.1); Sodium 137 mmol/L (136-145)
[2025-06-09 08:44] LABS: Alanine Aminotransferase 42 U/L (12-78); Albumin/Globulin Ratio 1.5 (1.1-1.8); Alkaline Phosphatase 85 U/L (38-126); Anion Gap 10.6 mEq/L (5-15); Aspartate Amino Transferase 33 U/L (17-59); Bilirubin,Total 1.6 mg/dl (0.2-1.3); Blood Urea Nitrogen 13 mg/dl (9-20); Carbon Dioxide 28 mmol/L (22.0-30.0); Creatinine,Serum 0.70 mg/dl (0.66-1.25); Estimated Glomerular Filt Rate 120 ml/min (>60); GFR (African American) 145 ML/MIN (>60); Globulin 2.6 g/dL (1.3-3.2); Hematocrit 23.9 % (42.0-52.0); Hemoglobin 8.1 g/dL (14.1-18.0); Immature Granulocytes % 2.8 %; Mean Corpuscular HGB Conc 33.9 g/dL (31.8-35.4); Mean Corpuscular Hemoglobin 33.1 pg (27.0-31.2); Mean Corpuscular Volume 97.6 fl (80-94); Nucleated Red Blood Cells % 1.2 %; Platelet Count 117 K/mm3 (142-424); Red Blood Count 2.45 M/mm3 (4.60-6.20); Red Cell Distribution Width-SD 54.3 fL; Total Protein,Serum 6.4 g/dl (6.3-8.2); White Blood Count 2.5 K/mm3 (4.8-10.8)
[2025-06-09 08:45] LABS: Calcium 8.6 mg/dl (8.4-10.2); Glucose 106 mg/dl (74-100)
[2025-06-09 09:41] LABS: RBC Morphology Normal; Total Cells Counted 50
== END 2025-06-09 09:45 | disposition home or self-care (01) ==
LOC: INF 08:17
PROVIDERS: PCP Nurse Practitioner Family; Visit Provider Internal Medicine Medical Oncology
DX: C91.40 Hairy cell leukemia not having achieved remission (principal)
CPT/HCPCS: 36415; 80053; 85007; 85025; 85027

== ENCOUNTER 2025-06-11 08:18 | Outpatient (CLI) | payer OTHER, SELFPAY ==
--- NOTE | 2025-06-11 08:23 | PC.NURSE ---
0823-collected labs via venipuncture stick in left ac with butterfly needle;pt to wait on results
[2025-06-11 08:33] LABS: Hematocrit 24.0 % (42.0-52.0); Hemoglobin 8.1 g/dL (14.1-18.0); Immature Granulocytes % 1.4 %; Mean Corpuscular HGB Conc 33.8 g/dL (31.8-35.4); Mean Corpuscular Hemoglobin 32.5 pg (27.0-31.2); Mean Corpuscular Volume 96.4 fl (80-94); Nucleated Red Blood Cells % 0 %; Platelet Count 112 K/mm3 (142-424); Red Blood Count 2.49 M/mm3 (4.60-6.20); Red Cell Distribution Width-SD 65.1 fL; White Blood Count 2.9 K/mm3 (4.8-10.8)
[2025-06-11 08:50] LABS: Albumin Level 3.6 g/dl (3.5-5.0); Chloride 106 mmol/L (98-107); Potassium 3.6 mmoL/L (3.5-5.1); Sodium 135 mmol/L (136-145)
[2025-06-11 08:53] LABS: Alanine Aminotransferase 119 U/L (12-78); Albumin/Globulin Ratio 1.3 (1.1-1.8); Alkaline Phosphatase 115 U/L (38-126); Anion Gap 7.6 mEq/L (5-15); Aspartate Amino Transferase 54 U/L (17-59); Bilirubin,Total 2.2 mg/dl (0.2-1.3); Blood Urea Nitrogen 13 mg/dl (9-20); Calcium 8.4 mg/dl (8.4-10.2); Carbon Dioxide 25 mmol/L (22.0-30.0); Creatinine,Serum 0.60 mg/dl (0.66-1.25); Estimated Glomerular Filt Rate 143 ml/min (>60); GFR (African American) 173 ML/MIN (>60); Globulin 2.8 g/dL (1.3-3.2); Glucose 111 mg/dl (74-100); Total Protein,Serum 6.4 g/dl (6.3-8.2)
[2025-06-11 09:00] LABS: RBC Morphology Normal
[2025-06-11 09:01] LABS: Anisocytosis 1+; Total Cells Counted 100
== END 2025-06-11 09:06 | disposition home or self-care (01) ==
LOC: INF 08:19
PROVIDERS: PCP Nurse Practitioner Family; Visit Provider Internal Medicine Medical Oncology
DX: C91.40 Hairy cell leukemia not having achieved remission (principal)
CPT/HCPCS: 36415; 80053; 85007; 85025; 85027

== ENCOUNTER 2025-06-16 08:09 | Outpatient (CLI) | payer OTHER, SELFPAY ==
--- NOTE | 2025-06-16 08:15 | PC.NURSE ---
0815-COLLECTED LABS VIA VENIPUNCTURE STICK IN LEFT AC WITH BUTTERFLY NEEDLE;PT TO D/C HOME.
[2025-06-16 08:33] LABS: Hematocrit 24.9 % (42.0-52.0); Hemoglobin 8.4 g/dL (14.1-18.0); Immature Granulocytes % 4.8 %; Mean Corpuscular HGB Conc 33.7 g/dL (31.8-35.4); Mean Corpuscular Hemoglobin 32.9 pg (27.0-31.2); Mean Corpuscular Volume 97.6 fl (80-94); Nucleated Red Blood Cells % 2.2 %; Platelet Count 162 K/mm3 (142-424); Red Blood Count 2.55 M/mm3 (4.60-6.20); Red Cell Distribution Width-SD 65.4 fL; White Blood Count 4.2 K/mm3 (4.8-10.8)
[2025-06-16 08:36] LABS: Albumin Level 3.8 g/dl (3.5-5.0); Chloride 108 mmol/L (98-107); Potassium 3.4 mmoL/L (3.5-5.1); Sodium 138 mmol/L (136-145)
[2025-06-16 08:39] LABS: Alanine Aminotransferase 73 U/L (12-78); Albumin/Globulin Ratio 1.4 (1.1-1.8); Alkaline Phosphatase 92 U/L (38-126); Anion Gap 8.4 mEq/L (5-15); Aspartate Amino Transferase 33 U/L (17-59); Bilirubin,Total 1.6 mg/dl (0.2-1.3); Blood Urea Nitrogen 14 mg/dl (9-20); Carbon Dioxide 25 mmol/L (22.0-30.0); Creatinine,Serum 0.70 mg/dl (0.66-1.25); Estimated Glomerular Filt Rate 120 ml/min (>60); GFR (African American) 145 ML/MIN (>60); Globulin 2.7 g/dL (1.3-3.2); Total Protein,Serum 6.5 g/dl (6.3-8.2)
[2025-06-16 08:40] LABS: Calcium 8.4 mg/dl (8.4-10.2); Glucose 103 mg/dl (74-100)
== END 2025-06-16 08:20 | disposition home or self-care (01) ==
LOC: INF 08:10
PROVIDERS: PCP Nurse Practitioner Family; Visit Provider Internal Medicine Medical Oncology
DX: C91.40 Hairy cell leukemia not having achieved remission (principal)
CPT/HCPCS: 36415; 80053; 85025

== ENCOUNTER 2025-06-19 09:36 | Outpatient (CLI) | payer OTHER, SELFPAY ==
--- NOTE | 2025-06-19 09:38 | PC.NURSE ---
0938-collected labs via venipuncture stick in right ac with butterfly needle;pt to d/c home.
[2025-06-19 09:46] LABS: Hematocrit 27.0 % (42.0-52.0); Hemoglobin 8.8 g/dL (14.1-18.0); Immature Granulocytes % 1.1 %; Mean Corpuscular HGB Conc 32.6 g/dL (31.8-35.4); Mean Corpuscular Hemoglobin 32.4 pg (27.0-31.2); Mean Corpuscular Volume 99.3 fl (80-94); Nucleated Red Blood Cells % 0.6 %; Platelet Count 198 K/mm3 (142-424); Red Blood Count 2.72 M/mm3 (4.60-6.20); Red Cell Distribution Width-SD 70.7 fL; White Blood Count 3.6 K/mm3 (4.8-10.8)
[2025-06-19 09:55] LABS: Alanine Aminotransferase 43 U/L (12-78); Albumin Level 4.0 g/dl (3.5-5.0); Albumin/Globulin Ratio 1.5 (1.1-1.8); Alkaline Phosphatase 78 U/L (38-126); Anion Gap 9.7 mEq/L (5-15); Aspartate Amino Transferase 32 U/L (17-59); Bilirubin,Total 1.5 mg/dl (0.2-1.3); Blood Urea Nitrogen 11 mg/dl (9-20); Calcium 8.5 mg/dl (8.4-10.2); Carbon Dioxide 25 mmol/L (22.0-30.0); Chloride 107 mmol/L (98-107); Creatinine,Serum 0.70 mg/dl (0.66-1.25); Estimated Glomerular Filt Rate 120 ml/min (>60); GFR (African American) 145 ML/MIN (>60); Globulin 2.7 g/dL (1.3-3.2); Glucose 126 mg/dl (74-100); Potassium 3.7 mmoL/L (3.5-5.1); Sodium 138 mmol/L (136-145); Total Protein,Serum 6.7 g/dl (6.3-8.2)
[2025-06-19 10:57] LABS: Anisocytosis 1+; Total Cells Counted 100
== END 2025-06-19 09:40 | disposition home or self-care (01) ==
LOC: LAB 09:37 → INF 09:49
PROVIDERS: PCP Nurse Practitioner Family; Visit Provider Internal Medicine Medical Oncology
DX: C91.40 Hairy cell leukemia not having achieved remission (principal)
CPT/HCPCS: 36415; 80053; 85007; 85025

== ENCOUNTER 2025-06-23 08:16 | Outpatient (CLI) | payer OTHER, SELFPAY ==
--- NOTE | 2025-06-23 08:22 | PC.NURSE ---
0822-collected labs via venipuncture stick in right ac with butterfly needle; pt to [email or web address].
[2025-06-23 08:34] LABS: Hematocrit 25.9 % (42.0-52.0); Hemoglobin 8.6 g/dL (14.1-18.0); Immature Granulocytes % 0.4 %; Mean Corpuscular HGB Conc 33.2 g/dL (31.8-35.4); Mean Corpuscular Hemoglobin 33.1 pg (27.0-31.2); Mean Corpuscular Volume 99.6 fl (80-94); Nucleated Red Blood Cells % 0.7 %; Platelet Count 170 K/mm3 (142-424); Red Blood Count 2.60 M/mm3 (4.60-6.20); Red Cell Distribution Width-SD 69.5 fL; White Blood Count 2.7 K/mm3 (4.8-10.8)
[2025-06-23 09:14] LABS: Albumin Level 3.9 g/dl (3.5-5.0); Chloride 110 mmol/L (98-107); Potassium 4.0 mmoL/L (3.5-5.1); Sodium 139 mmol/L (136-145)
[2025-06-23 09:17] LABS: Alanine Aminotransferase 30 U/L (12-78); Albumin/Globulin Ratio 1.6 (1.1-1.8); Alkaline Phosphatase 78 U/L (38-126); Anion Gap 10.0 mEq/L (5-15); Aspartate Amino Transferase 32 U/L (17-59); Bilirubin,Total 1.5 mg/dl (0.2-1.3); Blood Urea Nitrogen 9 mg/dl (9-20); Carbon Dioxide 23 mmol/L (22.0-30.0); Creatinine,Serum 0.70 mg/dl (0.66-1.25); Estimated Glomerular Filt Rate 120 ml/min (>60); GFR (African American) 145 ML/MIN (>60); Globulin 2.5 g/dL (1.3-3.2); Total Protein,Serum 6.4 g/dl (6.3-8.2)
[2025-06-23 09:18] LABS: Calcium 8.9 mg/dl (8.4-10.2); Glucose 102 mg/dl (74-100)
[2025-06-23 09:47] LABS: RBC Morphology Normal; Total Cells Counted 50
== END 2025-06-23 08:25 | disposition home or self-care (01) ==
LOC: INF 08:17
PROVIDERS: PCP Nurse Practitioner Family; Visit Provider Internal Medicine Medical Oncology
DX: C91.40 Hairy cell leukemia not having achieved remission (principal)
CPT/HCPCS: 36415; 80053; 85007; 85025

== ENCOUNTER 2025-06-26 10:12 | Outpatient (CLI) | payer OTHER, SELFPAY ==
--- NOTE | 2025-06-26 10:25 | PC.NURSE ---
1025-collected labs via venipuncture stick in right ac with butterfly needle. pt to oncology appt
[2025-06-26 10:37] LABS: Hematocrit 28.4 % (42.0-52.0); Hemoglobin 9.5 g/dL (14.1-18.0); Immature Granulocytes % 0.3 %; Mean Corpuscular HGB Conc 33.5 g/dL (31.8-35.4); Mean Corpuscular Hemoglobin 33.3 pg (27.0-31.2); Mean Corpuscular Volume 99.6 fl (80-94); Nucleated Red Blood Cells % 0 %; Platelet Count 194 K/mm3 (142-424); Red Blood Count 2.85 M/mm3 (4.60-6.20); Red Cell Distribution Width-SD 69.4 fL; White Blood Count 3.0 K/mm3 (4.8-10.8)
[2025-06-26 10:45] LABS: Albumin Level 4.3 g/dl (3.5-5.0); Chloride 110 mmol/L (98-107); Potassium 3.6 mmoL/L (3.5-5.1); Sodium 138 mmol/L (136-145)
[2025-06-26 10:47] LABS: Blood Urea Nitrogen 10 mg/dl (9-20); Creatinine,Serum 0.70 mg/dl (0.66-1.25); Estimated Glomerular Filt Rate 120 ml/min (>60); GFR (African American) 145 ML/MIN (>60)
[2025-06-26 10:48] LABS: Alanine Aminotransferase 32 U/L (12-78); Albumin/Globulin Ratio 1.6 (1.1-1.8); Alkaline Phosphatase 65 U/L (38-126); Anion Gap 6.6 mEq/L (5-15); Aspartate Amino Transferase 32 U/L (17-59); Bilirubin,Total 1.5 mg/dl (0.2-1.3); Calcium 9.1 mg/dl (8.4-10.2); Carbon Dioxide 25 mmol/L (22.0-30.0); Globulin 2.7 g/dL (1.3-3.2); Glucose 107 mg/dl (74-100); Total Protein,Serum 7.0 g/dl (6.3-8.2)
[2025-06-26 12:30] LABS: Total Cells Counted 100
[2025-06-26 12:37] LABS: Polychromasia 1+
[2025-06-26 12:38] LABS: Anisocytosis 1+; Hypochromasia 1+; Poikilocytosis 1+
[2025-06-27 16:43] LABS: Abs. Basophils 0.0 x10E3/uL (0.0-0.2); Abs. Eosinophils 0.0 x10E3/uL (0.0-0.4); Abs. Immature Granulocytes 0.0 x10E3/uL (0.0-0.1); Abs. Lymphocytes 0.4 x10E3/uL (0.7-3.1); Abs. Monocytes 0.3 x10E3/uL (0.1-0.9); Abs. Neutrophil 3.1 x10E3/uL (1.4-7.0); HCT 29.6 % (37.5-51.0); HGB 9.9 g/dL (13.0-17.7); MCH 34.7 pg (26.6-33.0); MCHC 33.4 g/dL (31.5-35.7); MCV 104 fL (79-97); RBC 2.85 x10E6/uL (4.14-5.80); RDW 19.0 % (11.6-15.4); WBC 3.9 x10E3/uL (3.4-10.8)
== END 2025-06-26 10:30 | disposition home or self-care (01) ==
LOC: INF 10:13
PROVIDERS: PCP Nurse Practitioner Family; Visit Provider Internal Medicine Medical Oncology
DX: C91.40 Hairy cell leukemia not having achieved remission (principal); R79.89 Other specified abnormal findings of blood chemistry
CPT/HCPCS: 36415; 80053; 85007; 85025; 85027; 86361

== ENCOUNTER 2025-07-01 08:09 | Outpatient (CLI) | payer OTHER, SELFPAY ==
--- NOTE | 2025-07-01 08:16 | PC.NURSE ---
0816-collected labs via venipuncture stick in right ac with butterfly needle;pt to d/c home
[2025-07-01 08:24] LABS: Hematocrit 30.0 % (42.0-52.0); Hemoglobin 9.9 g/dL (14.1-18.0); Immature Granulocytes % 0.7 %; Mean Corpuscular HGB Conc 33.0 g/dL (31.8-35.4); Mean Corpuscular Hemoglobin 32.9 pg (27.0-31.2); Mean Corpuscular Volume 99.7 fl (80-94); Nucleated Red Blood Cells % 0 %; Platelet Count 164 K/mm3 (142-424); Red Blood Count 3.01 M/mm3 (4.60-6.20); Red Cell Distribution Width-SD 66.1 fL; White Blood Count 2.8 K/mm3 (4.8-10.8)
[2025-07-01 08:37] LABS: Alanine Aminotransferase 35 U/L (12-78); Albumin Level 4.1 g/dl (3.5-5.0); Albumin/Globulin Ratio 1.6 (1.1-1.8); Alkaline Phosphatase 65 U/L (38-126); Anion Gap 8.7 mEq/L (5-15); Aspartate Amino Transferase 34 U/L (17-59); Bilirubin,Total 1.3 mg/dl (0.2-1.3); Blood Urea Nitrogen 10 mg/dl (9-20); Calcium 8.8 mg/dl (8.4-10.2); Carbon Dioxide 25 mmol/L (22.0-30.0); Chloride 106 mmol/L (98-107); Creatinine,Serum 0.70 mg/dl (0.66-1.25); Estimated Glomerular Filt Rate 119 ml/min (>60); GFR (African American) 144 ML/MIN (>60); Globulin 2.6 g/dL (1.3-3.2); Glucose 113 mg/dl (74-100); Potassium 3.7 mmoL/L (3.5-5.1); Sodium 136 mmol/L (136-145); Total Protein,Serum 6.7 g/dl (6.3-8.2)
[2025-07-01 09:06] LABS: RBC Morphology Normal; Total Cells Counted 50
== END 2025-07-01 08:20 | disposition home or self-care (01) ==
LOC: INF 08:11
PROVIDERS: PCP Nurse Practitioner Family; Visit Provider Internal Medicine Medical Oncology
DX: C91.40 Hairy cell leukemia not having achieved remission (principal); R79.89 Other specified abnormal findings of blood chemistry
CPT/HCPCS: 36415; 80053; 85007; 85025

== ENCOUNTER 2025-07-03 08:13 | Outpatient (CLI) | payer OTHER, SELFPAY ==
--- NOTE | 2025-07-03 08:40 | PC.NURSE ---
0823-collected labs via venipuncture stick in right ac with butterfly needle;pt to d/c home
[2025-07-03 08:43] LABS: Alanine Aminotransferase 32 U/L (12-78); Albumin Level 4.0 g/dl (3.5-5.0); Albumin/Globulin Ratio 1.5 (1.1-1.8); Alkaline Phosphatase 71 U/L (38-126); Anion Gap 10.3 mEq/L (5-15); Aspartate Amino Transferase 30 U/L (17-59); Bilirubin,Total 1.0 mg/dl (0.2-1.3); Blood Urea Nitrogen 15 mg/dl (9-20); Calcium 9.0 mg/dl (8.4-10.2); Carbon Dioxide 25 mmol/L (22.0-30.0); Chloride 107 mmol/L (98-107); Creatinine,Serum 0.70 mg/dl (0.66-1.25); Estimated Glomerular Filt Rate 119 ml/min (>60); GFR (African American) 144 ML/MIN (>60); Globulin 2.6 g/dL (1.3-3.2); Glucose 105 mg/dl (74-100); Hematocrit 29.8 % (42.0-52.0); Hemoglobin 9.8 g/dL (14.1-18.0); Immature Granulocytes % 0.4 %; Mean Corpuscular HGB Conc 32.9 g/dL (31.8-35.4); Mean Corpuscular Hemoglobin 33.3 pg (27.0-31.2); Mean Corpuscular Volume 101.4 fl (80-94); Nucleated Red Blood Cells % 0 %; Platelet Count 168 K/mm3 (142-424); Potassium 4.3 mmoL/L (3.5-5.1); Red Blood Count 2.94 M/mm3 (4.60-6.20); Red Cell Distribution Width-SD 64.9 fL; Sodium 138 mmol/L (136-145); Total Protein,Serum 6.6 g/dl (6.3-8.2); White Blood Count 2.8 K/mm3 (4.8-10.8)
[2025-07-03 09:25] LABS: Macrocytosis 1+; Total Cells Counted 100
== END 2025-07-03 08:25 | disposition home or self-care (01) ==
LOC: INF 08:14
PROVIDERS: PCP Nurse Practitioner Family; Visit Provider Internal Medicine Medical Oncology
DX: C91.40 Hairy cell leukemia not having achieved remission (principal)
CPT/HCPCS: 36415; 80053; 85007; 85025; 85027

== ENCOUNTER 2025-07-07 08:08 | Outpatient (CLI) | payer OTHER, SELFPAY ==
--- NOTE | 2025-07-07 08:16 | PC.NURSE ---
0816-collected labs via venipuncture stick in right ac with butterfly needle;pt to d/c home
[2025-07-07 08:45] LABS: Hematocrit 30.9 % (42.0-52.0); Hemoglobin 10.4 g/dL (14.1-18.0); Immature Granulocytes % 0.3 %; Mean Corpuscular HGB Conc 33.7 g/dL (31.8-35.4); Mean Corpuscular Hemoglobin 34.1 pg (27.0-31.2); Mean Corpuscular Volume 101.3 fl (80-94); Nucleated Red Blood Cells % 0 %; Platelet Count 164 K/mm3 (142-424); Red Blood Count 3.05 M/mm3 (4.60-6.20); Red Cell Distribution Width-SD 60.9 fL; White Blood Count 3.1 K/mm3 (4.8-10.8)
[2025-07-07 08:46] LABS: Chloride 110 mmol/L (98-107)
[2025-07-07 08:47] LABS: Albumin Level 4.1 g/dl (3.5-5.0); Potassium 3.6 mmoL/L (3.5-5.1); Sodium 138 mmol/L (136-145)
[2025-07-07 08:50] LABS: Alanine Aminotransferase 33 U/L (12-78); Albumin/Globulin Ratio 1.7 (1.1-1.8); Alkaline Phosphatase 73 U/L (38-126); Anion Gap 8.6 mEq/L (5-15); Aspartate Amino Transferase 35 U/L (17-59); Bilirubin,Total 1.3 mg/dl (0.2-1.3); Blood Urea Nitrogen 10 mg/dl (9-20); Calcium 9.1 mg/dl (8.4-10.2); Carbon Dioxide 23 mmol/L (22.0-30.0); Creatinine,Serum 0.70 mg/dl (0.66-1.25); Estimated Glomerular Filt Rate 119 ml/min (>60); GFR (African American) 144 ML/MIN (>60); Globulin 2.4 g/dL (1.3-3.2); Glucose 113 mg/dl (74-100); Total Protein,Serum 6.5 g/dl (6.3-8.2)
[2025-07-07 09:37] LABS: Macrocytosis 1+; Total Cells Counted 100
== END 2025-07-07 08:17 | disposition home or self-care (01) ==
LOC: INF 08:09
PROVIDERS: PCP Nurse Practitioner Family; Visit Provider Internal Medicine Medical Oncology
DX: C91.40 Hairy cell leukemia not having achieved remission (principal)
CPT/HCPCS: 36415; 80053; 85007; 85025

== ENCOUNTER 2025-07-14 08:11 | Outpatient (CLI) | payer OTHER, SELFPAY ==
--- NOTE | 2025-07-14 08:22 | PC.NURSE ---
0822-collected labs via venipuncture stick in left ac with butterfly needle; pt to d/c
[2025-07-14 08:30] LABS: Hematocrit 32.4 % (42.0-52.0); Hemoglobin 11.2 g/dL (14.1-18.0); Immature Granulocytes % 0.3 %; Mean Corpuscular HGB Conc 34.6 g/dL (31.8-35.4); Mean Corpuscular Hemoglobin 33.9 pg (27.0-31.2); Mean Corpuscular Volume 98.2 fl (80-94); Nucleated Red Blood Cells % 0 %; Platelet Count 176 K/mm3 (142-424); Red Blood Count 3.30 M/mm3 (4.60-6.20); Red Cell Distribution Width-SD 56.2 fL; White Blood Count 2.9 K/mm3 (4.8-10.8)
[2025-07-14 08:40] LABS: Alanine Aminotransferase 26 U/L (12-78); Albumin Level 4.1 g/dl (3.5-5.0); Albumin/Globulin Ratio 1.6 (1.1-1.8); Alkaline Phosphatase 72 U/L (38-126); Anion Gap 9.7 mEq/L (5-15); Aspartate Amino Transferase 29 U/L (17-59); Bilirubin,Total 0.9 mg/dl (0.2-1.3); Blood Urea Nitrogen 10 mg/dl (9-20); Calcium 8.7 mg/dl (8.4-10.2); Carbon Dioxide 23 mmol/L (22.0-30.0); Chloride 108 mmol/L (98-107); Creatinine,Serum 0.70 mg/dl (0.66-1.25); Estimated Glomerular Filt Rate 119 ml/min (>60); GFR (African American) 144 ML/MIN (>60); Globulin 2.6 g/dL (1.3-3.2); Glucose 112 mg/dl (74-100); Potassium 3.7 mmoL/L (3.5-5.1); Sodium 137 mmol/L (136-145); Total Protein,Serum 6.7 g/dl (6.3-8.2)
[2025-07-14 08:57] LABS: RBC Morphology Normal; Total Cells Counted 100
[2025-07-15 13:11] LABS: HCT 34.2 % (37.5-51.0); HGB 11.3 g/dL (13.0-17.7); MCH 34.2 pg (26.6-33.0); MCHC 33.0 g/dL (31.5-35.7); MCV 104 fL (79-97); RBC 3.30 x10E6/uL (4.14-5.80); RDW 16.2 % (11.6-15.4); WBC 3.0 x10E3/uL (3.4-10.8)
[2025-07-15 13:12] LABS: Abs. Basophils 0.0 x10E3/uL (0.0-0.2); Abs. Eosinophils 0.1 x10E3/uL (0.0-0.4); Abs. Immature Granulocytes 0.0 x10E3/uL (0.0-0.1); Abs. Lymphocytes 0.4 x10E3/uL (0.7-3.1); Abs. Monocytes 0.4 x10E3/uL (0.1-0.9); Abs. Neutrophil 2.1 x10E3/uL (1.4-7.0)
== END 2025-07-14 08:25 | disposition home or self-care (01) ==
LOC: INF 08:13
PROVIDERS: PCP Nurse Practitioner Family; Visit Provider Internal Medicine Medical Oncology
DX: C91.40 Hairy cell leukemia not having achieved remission (principal)
CPT/HCPCS: 36415; 80053; 85007; 85025; 86361

== ENCOUNTER 2025-07-21 08:23 | Outpatient (CLI) | payer OTHER, SELFPAY ==
[2025-07-21 08:33] LABS: Hematocrit 34.4 % (42.0-52.0); Hemoglobin 12.0 g/dL (14.1-18.0); Immature Granulocytes % 0.4 %; Mean Corpuscular HGB Conc 34.9 g/dL (31.8-35.4); Mean Corpuscular Hemoglobin 33.9 pg (27.0-31.2); Mean Corpuscular Volume 97.2 fl (80-94); Nucleated Red Blood Cells % 0 %; Platelet Count 184 K/mm3 (142-424); Red Blood Count 3.54 M/mm3 (4.60-6.20); Red Cell Distribution Width-SD 49.7 fL; White Blood Count 2.8 K/mm3 (4.8-10.8)
[2025-07-21 08:43] LABS: Albumin Level 4.1 g/dl (3.5-5.0); Chloride 105 mmol/L (98-107); Potassium 4.1 mmoL/L (3.5-5.1); Sodium 138 mmol/L (136-145)
[2025-07-21 08:46] LABS: Alanine Aminotransferase 29 U/L (12-78); Albumin/Globulin Ratio 1.5 (1.1-1.8); Alkaline Phosphatase 74 U/L (38-126); Anion Gap 12.1 mEq/L (5-15); Aspartate Amino Transferase 39 U/L (17-59); Bilirubin,Total 0.8 mg/dl (0.2-1.3); Blood Urea Nitrogen 11 mg/dl (9-20); Carbon Dioxide 25 mmol/L (22.0-30.0); Creatinine,Serum 0.80 mg/dl (0.66-1.25); Estimated Glomerular Filt Rate 102 ml/min (>60); GFR (African American) 124 ML/MIN (>60); Globulin 2.7 g/dL (1.3-3.2); Total Protein,Serum 6.8 g/dl (6.3-8.2)
[2025-07-21 08:47] LABS: Calcium 9.2 mg/dl (8.4-10.2); Glucose 114 mg/dl (74-100)
[2025-07-21 09:08] LABS: RBC Morphology Normal; Total Cells Counted 100
== END 2025-07-21 23:59 | disposition home or self-care (01) ==
LOC: INF 08:24
PROVIDERS: PCP Nurse Practitioner Family; Visit Provider Internal Medicine Medical Oncology
DX: C91.40 Hairy cell leukemia not having achieved remission (principal)
CPT/HCPCS: 36415; 80053; 85007; 85025; 85027

== ENCOUNTER 2025-08-14 08:15 | Outpatient (CLI) | payer OTHER, SELFPAY ==
--- NOTE | 2025-08-14 08:25 | PC.NURSE ---
0825-collected labs via venipuncture stick in right ac with butterfly needle;pt to appt.
[2025-08-14 08:39] LABS: Hematocrit 40.9 % (42.0-52.0); Hemoglobin 14.0 g/dL (14.1-18.0); Immature Granulocytes % 0.3 %; Mean Corpuscular HGB Conc 34.2 g/dL (31.8-35.4); Mean Corpuscular Hemoglobin 32.5 pg (27.0-31.2); Mean Corpuscular Volume 94.9 fl (80-94); Nucleated Red Blood Cells % 0 %; Platelet Count 198 K/mm3 (142-424); Red Blood Count 4.31 M/mm3 (4.60-6.20); Red Cell Distribution Width-SD 42.7 fL; White Blood Count 3.3 K/mm3 (4.8-10.8)
[2025-08-14 08:46] LABS: Albumin Level 4.2 g/dl (3.5-5.0); Chloride 103 mmol/L (98-107); Potassium 4.1 mmoL/L (3.5-5.1); Sodium 137 mmol/L (136-145)
[2025-08-14 08:49] LABS: Alanine Aminotransferase 32 U/L (12-78); Albumin/Globulin Ratio 1.4 (1.1-1.8); Alkaline Phosphatase 88 U/L (38-126); Anion Gap 12.1 mEq/L (5-15); Aspartate Amino Transferase 38 U/L (17-59); Bilirubin,Total 0.9 mg/dl (0.2-1.3); Blood Urea Nitrogen 15 mg/dl (9-20); Carbon Dioxide 26 mmol/L (22.0-30.0); Creatinine,Serum 0.80 mg/dl (0.66-1.25); Estimated Glomerular Filt Rate 102 ml/min (>60); GFR (African American) 124 ML/MIN (>60); Globulin 2.9 g/dL (1.3-3.2); Total Protein,Serum 7.1 g/dl (6.3-8.2)
[2025-08-14 08:50] LABS: Calcium 9.0 mg/dl (8.4-10.2); Glucose 109 mg/dl (74-100)
[2025-08-15 16:12] LABS: Abs. Basophils 0.1 x10E3/uL (0.0-0.2); Abs. Eosinophils 0.1 x10E3/uL (0.0-0.4); Abs. Immature Granulocytes 0.0 x10E3/uL (0.0-0.1); Abs. Lymphocytes 0.6 x10E3/uL (0.7-3.1); Abs. Monocytes 0.5 x10E3/uL (0.1-0.9); Abs. Neutrophil 2.2 x10E3/uL (1.4-7.0); HCT 43.3 % (37.5-51.0); HGB 14.2 g/dL (13.0-17.7); MCH 33.7 pg (26.6-33.0); MCHC 32.8 g/dL (31.5-35.7); MCV 103 fL (79-97); RBC 4.21 x10E6/uL (4.14-5.80); RDW 12.9 % (11.6-15.4); WBC 3.4 x10E3/uL (3.4-10.8)
== END 2025-08-14 23:59 | disposition home or self-care (01) ==
PROVIDERS: PCP Nurse Practitioner Family; Visit Provider Internal Medicine Medical Oncology
DX: D61.818 Other pancytopenia (principal)
CPT/HCPCS: 36415; 80053; 85025; 86361